=== PATIENT | female | born 1945 | race Caucasian/White ===

== ENCOUNTER 2019-09-27 07:20 | Outpatient (CLI) | payer OTHER, SELFPAY ==
--- NOTE | ~2019-09-27 | CT_ITS ---
EXAMINATION: CT chest w con DATE: 09/27/2019 08:08 INDICATION: VOCAL CORD PARALYSIS,CHRONIC SOB,RECENT DX LUNG INFECTION TECHNIQUE: Computed tomography (CT) of the chest was performed without intravenous contrast. Addition al 3D reconstructions utilizing coronal maximum intensity projection (MIP) were performed. Automated exposure control and iterative reconstruction technique were employed. The dose-length product was 57 1.08 mGy-cm. COMPARISON: 06/21/2018 and 04/09/2017 FINDINGS: 6 mm noncalcified granuloma in the left lower lobe, unchanged since 04/09/2017. Similar pattern of a s mall amount of peripheral reticular opacities in the lower lungs most prominent on the right middle l obe without honeycombing consistent with mild chronic interstitial lung disease. Unchanged mosaic att enuation subtle scattered regions of increased lucency consistent with air trapping in the setting of small airway disease. No pneumonia, pulmonary edema or pleural effusion. Cardiomegaly. Atherosclerot ic coronary artery calcification. No pericardial effusion. Unchanged 2.1 x 1.3 cm right paratracheal lymph node. No pathologically enlarged thoracic lymphadenopathy. Small sliding-type hiatal hernia. A couple small left renal cysts. Right shoulder arthroplasty. Mild thoracic dextrocurvature with severe spondylosis. IMPRESSION: 1. Mild chronic lung disease. No acute cardiopulmonary disease. 2. Unchanged mildly enlarged and likely reactive right paratracheal lymph node. No evident malignancy or metastatic disease. Reviewed, dictated and finalized at location A. [employer]
[2019-09-27 07:55] LABS: Blood Urea Nitrogen 23 mg/dL (8-26); Estimated Glomerular Filt Rate > 60
== END 2019-09-27 07:21 | disposition home or self-care (01) ==
LOC: ANHIMG 07:27
PROVIDERS: PCP Family Medicine; Visit Provider Otolaryngology
DX: J38.01 Paralysis of vocal cords and larynx, unilateral (principal); J98.4 Other disorders of lung; R59.0 Localized enlarged lymph nodes
CPT/HCPCS: 71260; Q9967

== ENCOUNTER 2019-10-21 07:53 | Outpatient (CLI) | payer OTHER, SELFPAY ==
--- NOTE | 2019-10-21 | EST_ITS ---
Patient Info Name: Rhoda Newton Age: 74 years : 1945 Gender: Female Ht: 63 in Wt: 225 lbs BSA: 2.18 m2 Exam Date: 10/21/2019 10:59 AM Exam Location: [facility] Stress Patient Status: Outpatient Admit Date: 10/21/2019 Staff Ordering Physician: Ilsa Garrett MD Attending Provider: Ilsa Garrett MD Exercise Technologist: Le Kulkarni RD Nurse: Thuy Fernandez ANP, ACNP- Exam Type: CA stress ashley w NM Study Info Indications R06.09 - Other forms of dyspnea A regadenoson stress test was performed. Summary 1. Atrial fibrillation. 2. Minor resting ST/T wave changes. 3. Clinically negative Lexiscan stress test for ischemia. 4. Myocardial perfusion imaging exam to be dictated by the Radiology Department. Protocol: Lexiscan Stress ECG Details Stage: REST Duration (min): 2 min : 34 sec HR (bpm): 69 SBP (mmHg): 121 DBP (mmHg): 59 Stage: REST Duration (min): 19 min : 0 sec HR (bpm): 73 SBP (mmHg): 121 DBP (mmHg): 59 Stage: STAGE 1 Duration (min): 1 min : 0 sec HR (bpm): 78 SBP (mmHg): 118 DBP (mmHg): 50 Stage: RECOVERY Duration (min): 1 min : 0 sec HR (bpm): 78 SBP (mmHg): 127 DBP (mmHg): 53 Stage: RECOVERY Duration (min): 2 min : 0 sec HR (bpm): 81 SBP (mmHg): 127 DBP (mmHg): 53 Stage: RECOVERY Duration (min): 3 min : 0 sec HR (bpm): 72 SBP (mmHg): 121 DBP (mmHg): 56 Stage: RECOVERY Duration (min): 3 min : 15 sec HR (bpm): 75 SBP (mmHg): 121 DBP (mmHg): 56 Rest HR: 73 bpm Peak HR: 87 bpm Rest Sys BP: 121 mmHg Peak Sys BP: 127 mmHg Max Pred HR: 145 bpm % Max Pred HR: 60 % Target HR: 123 bpm Max RPP: 11,049 bpm*mmHg BP Response: Normal blood pressure response Termination Reason: Completed protocol Cardiac Symptoms: None Total Time: 1 min : 0 sec Rest Crews BP: 59 mmHg Peak Crews BP: 53 mmHg Total Dose: 0.4 mg Resting ECG Atrial fibrillation. Minor resting ST/T wave changes. Stress ECG No abnormal ST/T wave changes with exercise. Report Signatures
--- NOTE | ~2019-10-21 | NM_ITS ---
EXAMINATION: NM ashley stress w perfusion DATE: 10/21/2019 13:14 INDICATION: Congestive heart failure. TECHNIQUE: Rest images were obtained following intravenous administration of 10 mCi Tc99m tetrofosmin (Myoview). The patient was infused intravenously with Lexiscan (regadenoson). Then, 28.3 mCi Tc99m t etrofosmin (Myoview) was administered intravenously, and stress images were obtained. Data was recons tructed into short axis and horizontal and vertical long axis SPECT images. Gated SPECT images were a lso obtained. COMPARISON: Chest CT 09/27/2019 FINDINGS: There is a moderate-sized, mild, reversible perfusion defect involving mid to basal inferio r wall, apical lateral segment, and mid inferolateral segment of left ventricle, consistent with isch emia. There is no segmental wall motion abnormality. Left ventricular ejection fraction measures >7 0%. IMPRESSION: 1. Moderate-sized area of mild ischemia involving mid to basal inferior wall, apical lateral segment, and mid inferolateral segment of left ventricle. 2. Normal left ventricular ejection fraction measuring >70%. Reviewed, dictated and finalized at location A. IMPRESSION: 1. Moderate-sized area of mild ischemia involving mid to basal inferior wall, a pical lateral segment, and mid inferolateral segment of left ventricle. 2. Normal left ventricular ejection fraction measuring >70%.
--- NOTE | 2019-10-21 19:29 | WPDPFTINT ---
PFT Interpretation PFT Interpretation: DOS: 10/21/2019 REQUESTING: Dr. Garrett REASON FOR TESTING: COPD, cardiopulmonary rehab PULMONARY FUNCTION TESTS Spirometry: FEV1 is 73%, mildly decreased, 1 L. FVC is 70%. The FEV1% is normal. Severe decrease in OOL24-75%. There is no significant response to bronchodilator administration. Lung volumes: Mild decrease in TLC 76% consistent with restrictive process. Increased RV/ TLC ratio, consistent with air trapping. Diffusion: DLCO is 41%, severely reduced. Flow volume loop: Mild scooping of the expiratory limb. IMPRESSION: Mixed obstructive and restrictive processes. Severe obstructive ventilatory defect in the small airways, without significant response to bronchodilator. Restrictive lung volumes with decreased total lung capacity, new compared to 04/10/2018. Similar air trapping. DLCO was 33%, now 41%, similar. The restrictive process is new. Compared to 04/06/2018, TLC was 132, now 76%, much lower. Restriction can mask obstruction due to not being able to take a deep breath. Clinical correlation is recommended. Ilsa Garrett MD
--- NOTE | 2019-10-21 19:39 | WPDSIXMINUTE ---
Six Minute Walk Six Minute Walk: DOS: 10/21/2019 REQUESTING: Dr. Garrett REASON FOR TESTING: Dyspnea on exertion, cardiopulmonary rehab. SIX MINUTE WALK This test was conducted per ATS guidelines. The patient told the respiratory therapist that she uses O2 at 3 L/min as needed at home. The study was started on room air per routine orders. The initial saturation was 96% on room air and pulse was 71. After 2 minutes of walking, her saturation decreased to 91%, and the patient needed to stop and rest due to shortness of breath. She was placed on her usual 3 L/min, and continued to walk for 2 more minutes. Distance walked was 150 feet / 45.7 meters. Saturation at the end of the study was 95%, and pulse was 85. IMPRESSION: This walk study shows a baseline saturation of 96% on room air indicating that the patient does not need supplemental O2 at rest. She has limited exercise capacity and desaturates with exertion, with distance walked 150 feet / 45.7 m, less than expected for her age. She walked for 5 minutes total. Supplemental O2 at 3 L/min is more than sufficient to provide adequate saturation with exertion. She may be able to tolerate lower O2 flow with optimized exercise endurance as she improves through structured cardiopulmonary rehab.
== END 2019-10-21 07:54 | disposition home or self-care (01) ==
PROVIDERS: PCP Family Medicine; Visit Provider Internal Medicine Critical Care Medicine
DX: J44.9 Chronic obstructive pulmonary disease, unspecified (principal); I27.20 Pulmonary hypertension, unspecified; I48.91 Unspecified atrial fibrillation
CPT/HCPCS: 78452; 93017; 94060; 94618; 94726; 94729; A9502; J2785

== ENCOUNTER 2020-01-01 11:42 | Emergency (ER) | payer OTHER, SELFPAY ==
--- NOTE | ~2020-01-01 | XR_ITS ---
XR elbow LT min 3V DATE: 01/01/2020 12:10 INDICATION: Fall. Left elbow pain. TECHNIQUE: 4 views COMPARISON: None FINDINGS: Synovial osteochondromatosis. There is elevation of anterior posterior fat pads consistent with joint effusion. There is prominent spurring of the radial head and neck. No definite fracture or dislocation is evide nt. IMPRESSION: Joint effusion; no definite fracture is identified. Consider CT or MRI evaluation if ther e is concern for possible fracture. Degenerative change Synovial osteochondromatosis Reviewed, dictated and finalized at location A. IMPRESSION: Joint effusion; no definite fracture is identified. Consider CT or MRI evaluation if there is concern for possible fracture. Degenerative change Synovial osteochondromatosis
[2020-01-01 11:55] VITALS: BP 127/53; PULSE 66; RESP 16; TEMP 36.9; O2SAT 94
--- NOTE | 2020-01-01 12:03 | ED.UPPEXIN ---
HPI - Extremity Injury (Upper) General Chief Complaint: Extremity Injury, Lower Stated Complaint: Fell left arm pain Time Seen by Provider: 01/01/20 11:55 Source: patient Mode of arrival: ambulatory Limitations: no limitations History of Present Illness HPI narrative: Rhoda Newton is a 74 yo female with a PMH of HTN, COPD dependent on O2, depression, hypothyroid, came to [facility] care for fall on left arm last evening. Is able to move arm, no loss of strength, states still sore as it was last night, no obvious bruising, rates pain as 3 out of 10 Related Data Home Medications Medication Instructions Recorded Confirmed Eliquis 5 mg PO BID 08/16/19 08/17/19 amlodipine 5 mg PO DAILY 08/16/19 08/17/19 doxazosin 4 mg PO DAILY 08/16/19 08/17/19 furosemide 40 mg PO DAILY 08/16/19 08/17/19 levothyroxine 50 mcg PO DAILY 08/16/19 08/17/19 losartan 100 mg PO DAILY 08/16/19 08/17/19 metoprolol tartrate 50 mg PO BID 08/16/19 08/17/19 sertraline 100 mg PO DAILY 08/16/19 08/17/19 albuterol sulfate [ProAir HFA] 2 puff INHALATION QID PRN 08/17/19 08/17/19 Allergies Allergy/AdvReac Type Severity Reaction Status Date / Time No Known Allergies Allergy Unverified 02/26/19 12:56 Review of Systems Review of Systems: Narrative: CONSTITUTIONAL: Denies fever, chills, sweats. EYES: Denies visual changes, redness, discharge. ENT: Denies rhinorrhea, congestion, sore throat, otalgia. CARDIOVASCULAR: Denies chest pain, palpitations, edema. RESPIRATORY: Denies dyspnea, wheezing, cough GASTROINTESTINAL: Denies abdominal pain, nausea, vomiting, diarrhea. GENITOURINARY: Denies dysuria, hematuria, abnormal discharge SKIN: Denies rash or itching. NEUROLOGIC: Denies numbness, or focal weakness. PSYCHIATRIC: Denies anxiety or depression. Left arm pain after fall PMFSH Past Medical History Medical History A-fib Chronic hypoxemic respiratory failure COPD (chronic obstructive pulmonary disease) History of lymphoma Hypertension Hypothyroidism Family History Family History Sibling Family history of cardiovascular disease Mother Family history of primary malignant neoplasm of liver, Onset Age: 83 Social History Social History Smoking status: Never smoker Second hand tobacco smoke exposure: Yes Alcohol intake: never Substance use: never Gender identity (if verbalized by the patient): Female Spiritual care concerns: No Agree to blood products: Yes Comments At time of signature, I agree with nursing past medical, surgical, social and family history. There is no relevant family history pertinent to the presenting complaint. Exam Narrative: Exam Narrative: GENERAL: This is a well-nourished, well-developed patient, in mild distress. HEAD: normocephalic, did not hit head EYES: Sclera clear/white. Vision is grossly intact. EARS: External ears normal, auditory canals clear and without drainage, TMs normal without perforation. Hearing grossly intact. NOSE: External nose normal without nasal discharge, nares without redness, no rhinorrhea. THROAT: Mucous membranes moist, NECK: Neck supple, non-tender CARDIOVASCULAR: Regular rate and rhythm without murmurs, gallops, or rubs. RESPIRATORY: Clear to auscultation. Breath sounds equal bilaterally. No wheezes, rales, or rhonchi. GASTROINTESTINAL: Abdomen soft, SKIN: warm, intact with no suspicious lesions or rash, good texture and turgor. NEURO: awake, alert, and oriented to person, place and time. There were no obvious focal neurologic abnormalities. Steady gait EXTREMITIES: Can raise arm overhead with some pain, no ecchymosis on arm or upper arm, states his soreness on palmar side of upper arm and elbow, mildly flexed from childhood injury, good finger strength BACK: Nontender without deformity Course Course Emerg
== END 2020-01-01 12:48 | disposition home or self-care (01) ==
PROVIDERS: Emergency Provider Nurse Practitioner; PCP Family Medicine
DX: M25.522 Pain in left elbow (principal); I10 Essential (primary) hypertension; J44.9 Chronic obstructive pulmonary disease, unspecified; Z99.81 Dependence on supplemental oxygen; W19.XXXA Unspecified fall, initial encounter; E03.9 Hypothyroidism, unspecified
CPT/HCPCS: 73080; 99213; G0463

== ENCOUNTER → 2021-04-21 07:32 | Outpatient (CLI) | payer OTHER, SELFPAY ==
--- NOTE | 2021-05-07 10:38 | WPDSLEEPSTUD ---
Sleep Study Date of Study: 04/21/21 Ordering Provider: Kenn Jarrell APRN Interpreting Physician: Ilsa Garrett MD Sleep Study Type: CPAP Titration Height: 1.6 m Weight: 97.522 kg Body Mass Index: 38.0 Neck Circumference (inches): 15 [place]: 11 Reason for Sleep Study Obstructive sleep apnea on APAP, increased symptoms and increased AHI, presents for a titration * 03/14/2018, CPAP titration with a final pressure of 8 cm, poor sleep efficiency * 06/15/2017 - basic sleep study, moderate obstructive sleep apnea with an AHI of 26.3, moderate to loud snoring Sleep History Rhoda Newton is a 75 year old female with obstructive sleep apnea who has been on APAP at home with good compliance. However she does not have a good mask seal, and wakes up at night with mask leaking. She rarely awakens from sleep feeling short of breath. She does not awaken at night with heartburn, belching or coughing. Without CPAP she snores frequently. Using CPAP she does not snore loudly at all. She frequently has trouble sleeping with a cold. She does not wake up gasping for breath at night. She does not have breathing problems at night while using the CPAP. She does not sweat excessively at night. She does not notice her heart pounding or beating irregularly at night. She frequently falls asleep during the day, never in involuntarily and never while driving. She does not have loss of muscle tone with strong emotion. She does not have daytime difficulties due to excessive sleepiness. She does not feel paralyzed on waking or falling asleep. She occasionally has vivid dreamlike scenes upon awakening or falling asleep. She does not feel afraid to go to sleep. She rarely has nightmares. She frequently remembers her dreams. She rarely feels sad or depressed. She occasionally has anxiety. She occasionally has muscular tension. She does not notice parts of her body jerking. She does not kick at night. She denies having crawling and aching feelings in her legs. She does not have any kind of leg pain at night and does not have morning jaw pain. She frequently grinds her teeth during sleep. She occasionally is bothered by pain during the day. She rarely is awakened by pain at night. She constantly wakes up feeling stiff in the morning with sore achy muscles and pain in the neck and spine. She still has fatigue and feels tired throughout the day. Normal bedtime is around midnight, taking 20 minutes or longer to fall asleep. She typically wakes 2-3 times during the night to get a drink of water, sometimes uses the bathroom, changes positions and returns to sleep within 10 minutes. She wakes the morning between 9 and 10:00 a.m.. Her weekend schedule is the same. She estimates getting between 7 and 9 hours of sleep at night. She sometimes takes naps in the afternoon or evening. A short nap is not refreshing. She is usually drowsy in the morning for an hour. She feels better in the afternoon compared to other times of day. Habits: never smoked tobacco. Caffeine 2 cups in the morning. No alcohol or recreational drugs. [facility] Past Medical History Medical History (Updated 05/12/21 @ 14:29 by Ilsa Garrett MD) A-fib Chronic hypoxemic respiratory failure COPD (chronic obstructive pulmonary disease) History of lymphoma Hypertension Hypothyroidism Lymphoma ROQUE (obstructive sleep apnea) Family History Family History Sibling Family history of cardiovascular disease Mother Family history of primary malignant neoplasm of liver, Onset Age: 83 Social History Social History Smoking status: Never smoker Second hand tobacco smoke exposure: Yes Alcohol intake: never Substance use: never Gender identity (if verbalized by the patient): Female Spiritual care concerns: No Agree to blood products: Yes Medications Les
[2021-05-12 15:07] VITALS: BMI 38.0
== END ==
PROVIDERS: PCP Internal Medicine; Visit Provider Nurse Practitioner Family
DX: G47.33 Obstructive sleep apnea (adult) (pediatric) (principal); J44.9 Chronic obstructive pulmonary disease, unspecified
CPT/HCPCS: 95811

== ENCOUNTER 2021-07-19 08:09 | Outpatient (CLI) | payer OTHER, SELFPAY ==
--- NOTE | ~2021-07-19 | MM_ITS ---
EXAMINATION: MM screening grant BI w fabrizio HISTORY: Screening TECHNIQUE: Craniocaudal and mediolateral oblique 3-D tomosynthesis images were obtained and synthetic 2-D images were generated. CAD analysis was submitted and interpreted. COMPARISON: Comparison to multiple prior studies sequentially, with oldest reviewed study dated 10/2011. BREAST PARENCHYMAL COMPOSITION: There are scattered areas of fibroglandular density. FINDINGS: There is no evidence of suspicious mass, calcification, or architectural distortion to sugg est malignancy in either breast. There has been no suspicious interval change. IMPRESSION: 1. No mammographic evidence of malignancy. 2. Recommend routine screening mammography in one year. BI-RADS Category 1: Negative Reviewed, dictated and finalized at location A. MACEUTICAL WORKER
== END 2021-07-19 08:10 | disposition home or self-care (01) ==
LOC: ANHIMG 08:10
PROVIDERS: PCP Internal Medicine; Visit Provider Nurse Practitioner
DX: Z12.31 Encounter for screening mammogram for malignant neoplasm of breast (principal)
CPT/HCPCS: 77063; 77067

== ENCOUNTER 2021-10-06 12:26 | Outpatient (CLI) | payer OTHER, SELFPAY ==
--- NOTE | ~2021-10-06 | CT_ITS ---
EXAMINATION: CT diagnostic chest wo con EXAM DATE: 10/06/2021 14:21 INDICATION: J84.9 - Interstitial pulmonary disease, unspecified. TECHNIQUE: Spiral CT of the chest without contrast. HRCT. Axial, coronal and sagittal images of the chest were reviewed. Coronal maximum intensity pixel images of chest reviewed. The dose-length prod uct (DLP) for this examination was 801.09 mGy-cm. The exposure was tailored according to patient siz e (auto mA exposure control), and iterative reconstruction (ASIR) was used as additional dose reducti on technique. Comparison is made to prior examination from 09/27/2019. FINDINGS: Mild intralobular septal thickening and interspersed groundglass opacities, could be mild chronic NSIP pattern interstitial lung disease. 6 mm left lower lobe nodule without spiculations unch anged, consistent with noncalcified granuloma. There are no pleural or pericardial effusions. Trach eobronchial tree is patent. Mildly enlarged precarinal lymph node at 1.6 x 1.1 cm, unchanged. This can be a feature of interstitial lung disease. There is no pneumothorax. Mild cardiomegaly. There is moderate to severe coronary arterial calcification, arterial sclerosis. Consider cardiology consu lt if not previously evaluated. There is right nephrolithiasis. There is thoracic spondylosis witho ut osteoblastic or osteolytic lesions identified. IMPRESSION: 1. 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 2. Moderate to severe coronary artery calcifications. Consider cardiology consult previously evaluat ed. 3. Mild precarinal lymphadenopathy probably reactive. 4. Left basilar granuloma. Reviewed, dictated and finalized at location G. DRY SUPERINTENDENT IMPRESSION: 1. Findings consistent with mild chronic NSIP pattern interstitial lung diseas e. 2. Moderate to severe coronary artery calcifications. Consider cardiology cons ult previously evaluated. 3. Mild precarinal lymphadenopathy probably reactive. 4. Left basilar granuloma.
[2021-10-06 13:19] VITALS: PULSE 72; O2SAT 92
[2021-10-06 13:20] VITALS: PULSE 72; O2SAT 89
[2021-10-06 13:22] VITALS: PULSE 74; O2SAT 86
[2021-10-06 14:01] VITALS: PULSE 78; O2SAT 88
[2021-10-06 14:02] VITALS: PULSE 75; O2SAT 90
--- NOTE | 2021-10-06 14:02 | HOMEO2EVAL ---
Evaluation was performed at [facility] Home Oxygen Evaluation RC: Home Oxygen (O2) Evaluation Start: 10/06/21 14:00 Freq: Status: Active Protocol: RPE Activity Type Activity Date Activity User E-Sign Co-Sign Detail Recorded Client Recorded Date Recorded By Document 10/06/21 13:19 KRM [email or web address] 10/06/21 14:02 KRM Document 10/06/21 13:20 KRM [email or web address] 10/06/21 14:02 KRM Document 10/06/21 13:22 KRM [email or web address] 10/06/21 14:02 KRM Document 10/06/21 14:01 KRM [email or web address] 10/06/21 14:02 KRM Document 10/06/21 14:02 KRM [email or web address] 10/06/21 14:02 KRM 10/06/21 10/06/21 10/06/21 13:19 13:20 13:22 Home O2 Evaluation Test Phase Resting Exercise Exercise Oxygen Delivery Room Air Room Air Room Air Oxygen Flow Rate (L/min) Pulse Oximetry (90-100 %) 92 89 L 86 L Pulse Rate (60-100 beats/min) 72 72 74 Activity Tolerance Fair Fair Ambulation Distance (feet) Ambulation Distance (meters) Treatment Charges 10/06/21 10/06/21 14:01 14:02 Home O2 Evaluation Test Phase Exercise Exercise Oxygen Delivery Nasal Cannula Nasal Cannula Oxygen Flow Rate (L/min) 1 2 Pulse Oximetry (90-100 %) 88 L 90 Pulse Rate (60-100 beats/min) 78 75 Activity Tolerance Fair Fair Ambulation Distance (feet) 200 Ambulation Distance (meters) 60.95 Treatment Charges O2 Evaluation - Outpatient
--- NOTE | 2021-10-07 15:37 | WPDPFTINT ---
PFT Procedure Performed PFT Procedure Performed Spirometry with Pre/Post Bronchodilator Plethysmography (Lung Vol) Diffusing Cap (DLCO) Flow Vol Loop PFT Interpretation Lung volumes were measured with the body plethysmography method. The diminished total lung capacity and vital capacity are indicative of mild restrictive respiratory disease. Spirometry showed diminished expiratory flow rates and a borderline normal FEV1 to FVC ratio of 68%. Following administration of a bronchodilator there was no significant increase in expiratory flow rates. Lung diffusion capacity is severely reduced at 43% predicted. in comparison to previous study in October of 2019, forced vital capacity, FEV1, total lung capacity, and lung diffusion capacity are essentially unchanged. Impression: Mild restrictive respiratory disease. Severely reduced lung diffusion capacity. Unchanged since 10/2019.
== END 2021-10-06 12:27 | disposition home or self-care (01) ==
LOC: ANHPFT 12:27
PROVIDERS: PCP Internal Medicine; Visit Provider Nurse Practitioner Family
DX: J84.9 Interstitial pulmonary disease, unspecified (principal); J96.11 Chronic respiratory failure with hypoxia; J44.9 Chronic obstructive pulmonary disease, unspecified; Z99.81 Dependence on supplemental oxygen; R94.2 Abnormal results of pulmonary function studies; I25.10 Atherosclerotic heart disease of native coronary artery without angina pectoris
CPT/HCPCS: 71250; 94060; 94618; 94726; 94729

== ENCOUNTER 2022-04-06 13:09 | Inpatient (IN) | payer OTHER, SELFPAY ==
[2022-04-06] VITALS (17 sets, daily range): BP systolic 133–180; BP diastolic 44–89; PULSE 62–86; RESP 15–29; TEMP 36.4–36.9; O2SAT 96–100; BMI 38.6
--- NOTE | ~2022-04-06 | XR_ITS ---
EXAMINATION: XR chest 2V DATE: 04/06/2022 14:01 INDICATION: Shortness of breath. TECHNIQUE: Frontal and lateral views of the chest were obtained. COMPARISON: Chest single view 08/17/2019, chest CT 10/06/2021, 09/27/2019 FINDINGS: The lung volumes are normal. There is a diffuse interstitial pattern in the lungs. No pleur al effusion or pneumothorax. Cardiomegaly is noted. There are surgical clips in right axilla. There i s a right shoulder arthroplasty. IMPRESSION: 1. Chronic diffuse interstitial pattern in the lungs, consistent with mild chronic interstitial lung disease without or with superimposed mild pulmonary edema. 2. Cardiomegaly. Reviewed, dictated and finalized at location A. IMPRESSION: 1. Chronic diffuse interstitial pattern in the lungs, consistent with mild warehouse associate driver yuki interstitial lung disease without or with superimposed mild pulmonary edema . 2. Cardiomegaly.
--- NOTE | 2022-04-06 13:24 | ECG_ITS ---
Measurements Intervals [place] Rate: 54 P: ND: 0 QRS: 27 QRSD: 84 T: 38 QT: 422 QTc: 401 Interpretive Statements ATRIAL FIBRILLATION WITH SLOW VENTRICULAR RESPONSE LOW QRS VOLTAGE IN PRECORDIAL LEADS POSSIBLE RIGHT VENTRICULAR CONDUCTION DELAY NONSPECIFIC ST ABNORMALITY ABNORMAL ECG COMPARED TO ECG 08/17/2019 10:47:50 NO SIGNIFICANT CHANGES Electronically Signed On 04-06-2022 16:14:37 CDT by Mark Salmon M.D.
--- NOTE | 2022-04-06 15:42 | ED.SOB ---
HPI - SOB/Dyspnea General Chief Complaint: Shortness of Breath/Dyspnea Stated Complaint: covid+/ dyspnea Time Seen by Provider: 04/06/22 15:20 History of Present Illness HPI Narrative: This is a 76-year-old female with past medical history of A. fib and COPD on 2 L OF oxygen with exertion at baseline, presenting the emergency department with worsening shortness of breath for the past several days. Patient states she was exposed to another person with COVID-19 3 days ago, with development of symptoms 2 days ago and had a positive home test today. She states she has needed to use her oxygen at rest as well as with exertion. She denies associated chest pain, palpitations or loss of consciousness. She denies abdominal pain or vomiting. Related Data Home Medications Medication Instructions Recorded Confirmed albuterol sulfate 90 mcg/actuation 2 puff inhalation QID PRN 08/17/19 12/14/21 aerosol inhaler (ProAir HFA) Shortness Of Breath atorvastatin 40 mg tablet 40 mg PO DAILY 02/03/20 12/14/21 metoprolol tartrate 50 mg tablet 25 mg PO BID 02/03/20 12/14/21 apixaban 5 mg tablet (Eliquis) 5 mg PO BID 07/28/20 12/14/21 multivitamin (Daily Multi-Vitamin 1 tablet PO DAILY 12/04/20 12/14/21 tablet) furosemide 40 mg tablet 40 mg PO DAILY 12/14/21 12/14/21 Allergies Allergy/AdvReac Type Severity Reaction Status Date / Time No Known Allergies Allergy Verified 04/06/22 16:08 Review of Systems Review of Systems: CONSTITUTIONAL: Denies fever, chills, or sweats. EYES: Denies visual changes, redness, or discharge. ENT: Denies rhinorrhea, congestion, sore throat, or otalgia. CARDIOVASCULAR: Denies chest pain, palpitations, or edema. RESPIRATORY: Nonbloody cough and dyspnea at rest. GASTROINTESTINAL: Denies abdominal pain, nausea, vomiting, or diarrhea. GENITOURINARY: Denies dysuria or hematuria. SKIN: Denies rash or itching. MUSCULOSKELETAL: Denies back pain, joint pain, or myalgia. NEUROLOGIC: Denies headache, numbness, dizziness, or weakness. PSYCHIATRIC: Denies anxiety or depression. [facility] Past Medical History Medical History A-fib Chronic hypoxemic respiratory failure COPD (chronic obstructive pulmonary disease) History of lymphoma Hypertension Hypothyroidism Lymphoma ROQUE (obstructive sleep apnea) Family History Family History Sibling Family history of cardiovascular disease Mother Family history of primary malignant neoplasm of liver, Onset Age: 83 Social History Social History Second hand tobacco smoke exposure: Yes Alcohol intake: never Substance use: never Substance use type: does not use Gender identity (if verbalized by the patient): Female Spiritual care concerns: No Agree to blood products: Yes Exam Narrative: GENERAL: Well-developed, well-nourished, and in no acute distress. HEAD: Normocephalic, atraumatic. EYES: PERRLA and EOMI. ENT: Nares clear, no rhinorrhea or epistaxis. Mucous membranes moist. Oropharynx without tonsillar hypertrophy exudate or other lesions. NECK: Supple. No adenopathy or masses. No carotid bruits or JVD CHEST: Tachypneic, faint bilateral lower lung field rales. No respiratory distress. No wheezes or rhonchi HEART: Irregularly irregular. No murmur heard. Normal peripheral pulses. ABDOMEN: Soft, nontender, nondistended, normal active bowel sounds. EXTREMITIES: Normal range of motion. No edema. SKIN: Warm, dry, no rash. NEURO: No focal deficits. Alert and oriented x3. PSYCH: Normal mood and affect. Course Course Emergency Course: 16:15 - Patient desatted with ambulation to 83% with significant work of breathing, though she was off oxygen at the time. Discussed patient with hospitalist, DARIN Posey who accepts admission. Vital Signs Vital signs: Vital Signs Temperature 98.4 F 04/06
[2022-04-06 16:17] LABS: Basophils Percent Auto 0.4 % (0.2-1.2); Eosinophils Percent Auto 0.4 % (0-4.4); Hematocrit 37.9 % (37.0-47.0); Hemoglobin 12.5 g/dL (12.0-15.0); Immature Granulocyte Absolute 0.02 K/mm3 (0.00-0.031); Immature Granulocyte Percent A 0.3 % (0-0.5); Lymphocytes Absolute Auto 2.29 K/mm3 (0.9-3.2); Lymphocytes Percent Auto 28.7 % (18.3-44.2); Mean Corpuscular Hemoglobin 32.6 pg (26-34); Mean Corpuscular Volume 98.7 fl (80-100); Mean Platelet Volume 10.4 fl (7.4-10.4); Monocytes Absolute Auto 0.9 K/mm3 (0.1-0.6); Monocytes Percent Auto 11.2 % (2.6-8.5); Neutrophils Absolute Auto 4.7 K/mm3 (1.3-6.7); Platelet Count Result 168 k/mm3 (150-375); Red Blood Count 3.84 M/mm3 (4.2-5.4); Red Cell Distribution Width 13.7 % (11.5-14.5)
[2022-04-06] MEDS: DEXAMETHASONE 2 MG TABLET 10 MG PO (16:33)
--- NOTE | 2022-04-06 18:10 | PM.IMHP ---
H&P: HPI History of Present Illness Date/Time: 04/06/22 18:10 Chief Complaint: Shortness of breath. Narrative: This is a pleasant 76-year-old female with chronic obstructive pulmonary disease on p.r.n. oxygen sleep apnea, atrial fibrillation on chronic anticoagulation, hypertension, hypothyroidism, and history of lymphoma who presented to the emergency department from home for evaluation of shortness of breath. Monday evening she started to feel a bit under the weather and by Monday she had developed a sore throat, sinus congestion, and cough which has been productive of yellowish green phlegm. Over last 24 hours she has felt increasingly short of breath from baseline and she has been wearing her oxygen continuously. She has also noticed some mild tightness in her chest which she believes is due to the shortness of breath. Today she took and at home COVID test and that came back positive and she decided to come in for evaluation. Vital signs have been stable since arrival to the emergency department. Pertinent labs include a normal white blood cell count, sodium 133, and a BUN of 18. Chest x-ray showed cardiomegaly with findings of chronic lung disease. Due to her comorbidities and increasing oxygen requirement, I was asked to admit the patient for close monitoring overnight. At the time my evaluation she is resting comfortably and in fact she is hungry and asking for food. She reports a subjective fever but has not had a documented temperature. She has had some sweats as well. She is not currently having any chest pain and she denies pleuritic pain, palpitations, and sensation of racing heart. Appetite has been okay without change in smell and taste. She has not had nausea, vomiting, or diarrhea. She did receive the COVID vaccination series and 1 booster though she was exposed to COVID sometime late last week. Review of Systems Review of Systems: Twelve systems were reviewed and are negative except for as per HPI. [facility] Past Medical History Medical History (Updated 04/06/22 @ 22:43 by Smiley Posey PA-C) Atrial fibrillation Chronic obstructive pulmonary disease Chronic respiratory failure with hypoxia, on home oxygen therapy Depression with anxiety Follicular lymphoma Hypertension Hypothyroidism Interstitial lung disease Obstructive sleep apnea on CPAP Surgical History Surgical History (Updated 04/06/22 @ 22:39 by Smiley Posey PA-C) History of arthroscopy of right shoulder History of bilateral cataract extraction Family History Family History Sibling Family history of cardiovascular disease Mother Family history of primary malignant neoplasm of liver, Onset Age: 83 Social History Social History (Updated 04/06/22 @ 22:40 by Smiley Posey PA-C) Social History: Surrogate medical decision maker: Tyrone Newton, spouse. Code status: Full code. Smoking status: Never smoker Second hand tobacco smoke exposure: Yes (As a child and young adult) Alcohol intake: never Substance use: never Substance use type: does not use Living arrangements: with family Occupation/Education: retired Spiritual care concerns: No Agree to blood products: Yes Meds Home Medications and Allergies Home Medications Medication Instructions Recorded Confirmed Type albuterol sulfate 90 mcg/actuation 2 puff inhalation QID PRN 08/17/19 12/14/21 History aerosol inhaler (ProAir HFA) Shortness Of Breath atorvastatin 40 mg tablet 40 mg PO DAILY 02/03/20 12/14/21 History metoprolol tartrate 50 mg tablet 25 mg PO BID 02/03/20 12/14/21 History apixaban 5 mg tablet (Eliquis) 5 mg PO BID 07/28/20 12/14/21 History multivitamin (Daily Multi-Vitamin 1 tablet PO DAILY 12/04/20 12/14/21 History tablet) furosemide 40 mg tablet 40 mg PO DAILY 12/14/21 12/14/21 History cholecalciferol (vitamin D3) 50 50 mcg PO DAILY #90 tabs 12/23/21 Rx mcg (2,000
[2022-04-06 21:07] LABS: Alanine Aminotransferase 20 U/L (6-35); Albumin Level 4.1 g/dL (3.5-5.1); Alkaline Phosphatase 59 U/L (38-126); Anion Gap 7 mmol/L (8-16); Aspartate Amino Transferase 32 U/L (14-36); Bilirubin,Total 0.6 mg/dL (0.2-1.3); Blood Urea Nitrogen 18 mg/dL (7-17); Calcium 8.8 mg/dL (8.4-10.2); Carbon Dioxide 29 mmol/L (22-30); Chloride 97 mmol/L (98-107); Estimated Glomerular Filt Rate > 60; Glucose 255 mg/dL (65-110); Potassium 3.8 mmol/L (3.4-5.0); Sodium 133 mmol/L (137-145)
--- NOTE | 2022-04-06 21:37 | ADMGEN ---
This patient, Rhoda Newton, was admitted to [facility] Surg Room 311-01. Patient/family oriented to hospital policies and general routines including ID bracelet, bed and alarms, visiting hours, pain management, procedures, bathroom and other care routines, personal items, smoking policy, room service/diet, and visiting hours. Information on how to activate the Rapid Response Team has been discussed. Patient/Family are encouraged to report perceived risks to care and to ask questions if they do not understand what they are told or what they should do.
[2022-04-06] MEDS: REMDESIVIR 200 MG/NS 250 ML 200 MG/250 ML BAG 250 MG IVPB (23:51)
[2022-04-07] VITALS (13 sets, daily range): BP systolic 93–150; BP diastolic 64–99; PULSE 46–87; RESP 16–18; TEMP 36.1–37; O2SAT 93–100
--- NOTE | 2022-04-07 06:00 | ECG_ITS ---
Measurements Intervals [place] Rate: 64 P: MO: 0 QRS: 34 QRSD: 91 T: 14 QT: 435 QTc: 449 Interpretive Statements ATRIAL FIBRILLATION NONSPECIFIC ST ABNORMALITY ABNORMAL ECG COMPARED TO ECG 04/06/2022 13:29:49 NO SIGNIFICANT CHANGES Electronically Signed On 04-07-2022 15:11:25 CDT by Mark Salmon M.D.
[2022-04-07 06:46] LABS: Hemoglobin 12.1 g/dL (12.0-15.0); Mean Corpuscular HGB Conc 32.7 g/dl (32-36); Mean Corpuscular Volume 97.9 fl (80-100); Mean Platelet Volume 9.7 fl (7.4-10.4); Platelet Count Result 142 k/mm3 (150-375); Red Blood Count 3.78 M/mm3 (4.2-5.4); Red Cell Distribution Width 13.2 % (11.5-14.5)
[2022-04-07 07:01] LABS: INR 1.4; Prothrombin Time 16.2 Seconds (11.1-14.7)
[2022-04-07 07:08] LABS: Hemoglobin A1C 5.6 % (<5.7)
[2022-04-07 07:14] LABS: Anion Gap 9 mmol/L (8-16); Blood Urea Nitrogen 16 mg/dL (7-17); CRP 1.8 mg/dL (<1.0); Carbon Dioxide 28 mmol/L (22-30); Chloride 99 mmol/L (98-107); Estimated CRCL calculation 65 ml/min; Estimated Glomerular Filt Rate > 60; Glucose 144 mg/dL (65-110); Lactate Dehydrogenase 183 U/L (120-246); Magnesium 2.3 mg/dL (1.6-2.3); Sodium 136 mmol/L (137-145)
[2022-04-07 08:58] LABS: Glucose Point of Care 138 mg/dl (65-105)
[2022-04-07] MEDS: LEVOTHYROXINE SODIUM 50 MCG TABLET BY MOUTH (09:42)
[2022-04-07] MEDS: DEXAMETHASONE 2 MG TABLET 6 MG PO (09:43)
[2022-04-07] MEDS: ATORVASTATIN 40 MG TABLET PO (09:44)
[2022-04-07] MEDS: DOXAZOSIN MESYLATE 4 MG TABLET BY MOUTH (09:44)
[2022-04-07] MEDS: FUROSEMIDE 40 MG TABLET PO (09:44)
[2022-04-07] MEDS: APIXABAN 5 MG TABLET PO ×2 (09:44→21:03)
[2022-04-07] MEDS: METOPROLOL TARTRATE 25 MG TABLET PO ×2 (09:44→21:03)
[2022-04-07] MEDS: LOSARTAN POTASSIUM 100 MG TABLET BY MOUTH (09:44)
[2022-04-07] MEDS: MULTIVITAMINS THERAPEUTIC TAB (*BKC) 1 TABLET PO (09:44)
[2022-04-07] MEDS: guaiFENesin 12 HR 600 MG TABCR PO ×2 (09:44→21:03)
[2022-04-07] MEDS: amLODIPine BESYLATE 5 MG TABLET BY MOUTH (09:44)
[2022-04-07] MEDS: SERTRALINE HCL 50 MG TABLET 100 MG BY MOUTH (09:44)
[2022-04-07 10:42] LABS: SARS-CoV-2 RNA PCR Positive
[2022-04-07 10:54] LABS: Thyroid Stimulating Hormone Reflex 0.407 uIU/mL (0.465-4.68)
[2022-04-07 11:38] LABS: Free T4 Free Thyroxine Reflex 1.23 ng/dL (0.78-2.19)
--- NOTE | 2022-04-07 12:01 | PM.IMPN ---
Progress Note: A&P Assessment and Plan (1) COVID-19: Code(s): U07.1 - COVID-19 Status: Acute Assessment and Plan: She is vaccinated and has received 1 booster. Chest x-ray today does not show any acute infiltrates to suggest COVID pneumonia. As she is now requiring continuous oxygen, will continue with dexamethasone and remdesivir while hospitalized. (2) Chronic respiratory failure with hypoxia, on home oxygen therapy: Code(s): J96.11 - Chronic respiratory failure with hypoxia; Z99.81 - Dependence on supplemental oxygen Status: Acute Assessment and Plan: Typically on 2 L p.r.n. though she is now requiring 3 to 4 L. wean as tolerated. (3) Hyperglycemia: Code(s): R73.9 - Hyperglycemia, unspecified Status: Acute Assessment and Plan: Check fasting glucose and hemoglobin A1c. Initiate sliding scale insulin and Accu-Cheks while receiving steroids. (4) Atrial fibrillation: Code(s): I48.91 - Unspecified atrial fibrillation Status: Acute Assessment and Plan: Rate controlled on metoprolol. Continue apixaban for stroke prophylaxis. (5) Hypertension: Qualifiers: Hypertension type: essential hypertension Qualified Code(s): I10 - Essential (primary) hypertension Code(s): I10 - Essential (primary) hypertension Status: Acute Assessment and Plan: Blood pressures were reviewed and they have been running a bit high. Continue antihypertensives and monitor. (6) Obstructive sleep apnea on CPAP: Code(s): G47.33 - Obstructive sleep apnea (adult) (pediatric); Z99.89 - Dependence on other enabling machines and devices Status: Acute Assessment and Plan: CPAP will be provided for the patient to use while hospitalized. (7) Chronic obstructive pulmonary disease: Code(s): J44.9 - Chronic obstructive pulmonary disease, unspecified Status: Acute Assessment and Plan: No evidence of exacerbation. Continue home inhalers. Subjective Date/time seen: 04/07/22 12:01 Doing well. On 3L. Exam Narrative: General: Well-developed female sitting up in bed in no acute distress. She is nontoxic in appearance. Weight: 90.9 kg. BMI: 30.6. HEENT: PERRL, EOMI. Conjunctivae anicteric. Tacky mucous membranes. Neck: Supple. No JVD or lymphadenopathy. Respiratory: Respirations are nonlabored. SpO2 is 100% on 4 L nasal cannula. Occasional coarse crackles at the bases. No wheezing. Cardiovascular: Irregularly irregular rate and rhythm. Gastrointestinal: Abdomen is soft, nontender, and nondistended with positive bowel sounds. Skin: Warm and dry. No rash or lesions on limited exam. Extremities: No cyanosis, clubbing, or edema. Radial and pedal pulses intact. Negative Ally sign bilaterally. Neurological: Alert. Cranial nerves 2-12 are grossly intact. No gross focal deficits to casual conversation. Psychiatric: Pleasant and cooperative with normal mood and affect. Judgment and insight intact. Objective Data Vital Signs Vital Signs: Vital Signs - 24 hr 04/06/22 13:21 04/06/22 16:06 04/06/22 16:06 Temperature 98.4 F 98.3 F Pulse Rate 64 66 Respiratory Rate 20 18 Blood Pressure 146/50 H 162/89 H Pulse Oximetry 97 100 97 Oxygen Delivery Room Air Nasal Cannula Room Air Oxygen Flow Rate 4 04/06/22 16:34 04/06/22 15:17 04/06/22 15:18 Temperature Pulse Rate 82 83 62 Respiratory Rate 19 28 H 22 H Blood Pressure 162/89 H Pulse Oximetry 100 100 99 Oxygen Delivery Oxygen Flow Rate 04/06/22 15:44 04/06/22 15:45 04/06/22 15:47 Temperature Pulse Rate 72 75 Respiratory Rate 20 20 Blood Pressure 180/82 H Pulse Oximetry 100 100 Oxygen Delivery Oxygen Flow Rate 04/06/22 16:16 04/06/22 17:29 04/06/22 18:41 Temperature Pulse Rate 64 75 Respiratory Rate 29 H 20 15 Blood Pressure 133/61 Pulse Oximetry 100 100 100 Oxygen Delivery Oxygen Flow Ra
[2022-04-07 12:15] LABS: Glucose Point of Care 132 mg/dl (65-105)
[2022-04-07 16:57] LABS: Glucose Point of Care 193 mg/dl (65-105)
[2022-04-07] MEDS: FUROSEMIDE 20 MG TABLET PO (17:31)
[2022-04-07 18:27] LABS: Total Triiodothyronine (T3) 0.73 NG/ML (0.97-1.69)
[2022-04-07] MEDS: REMDESIVIR 100 MG/NS 250 ML 100 MG/250 ML BAG 250 MG IVPB (21:05)
[2022-04-07 21:21] LABS: Glucose Point of Care 224 mg/dl (65-105)
[2022-04-08] VITALS (10 sets, daily range): BP systolic 125–177; BP diastolic 60–87; PULSE 44–74; RESP 16–18; TEMP 35.7–36.7; O2SAT 93–97
--- NOTE | 2022-04-08 02:46 | PC.NURSE ---
Pt's IV started leaking and infiltrated 04/07 @2300. Pt requested to not have a new IV inserted until the morning. Dr. Hagen was notified. Patient does not have any IV medication due until 04/08 @2200. Will try to insert IV this AM of 04/08
[2022-04-08 05:33] LABS: INR 1.4; Prothrombin Time 16.8 Seconds (11.1-14.7)
[2022-04-08 05:38] LABS: Alanine Aminotransferase 18 U/L (6-35); Estimated CRCL calculation 57 ml/min; Estimated Glomerular Filt Rate > 60
[2022-04-08] MEDS: LEVOTHYROXINE SODIUM 50 MCG TABLET BY MOUTH (06:55)
[2022-04-08 08:17] LABS: Glucose Point of Care 117 mg/dl (65-105)
[2022-04-08] MEDS: SERTRALINE HCL 50 MG TABLET 100 MG BY MOUTH (08:49)
[2022-04-08] MEDS: ATORVASTATIN 40 MG TABLET PO (08:49)
[2022-04-08] MEDS: amLODIPine BESYLATE 5 MG TABLET BY MOUTH (08:49)
[2022-04-08] MEDS: DOXAZOSIN MESYLATE 4 MG TABLET BY MOUTH (08:49)
[2022-04-08] MEDS: guaiFENesin 12 HR 600 MG TABCR PO ×2 (08:49→21:19)
[2022-04-08] MEDS: FUROSEMIDE 40 MG TABLET PO (08:49)
[2022-04-08] MEDS: MULTIVITAMINS THERAPEUTIC TAB (*BKC) 1 TABLET PO (08:49)
[2022-04-08] MEDS: APIXABAN 5 MG TABLET PO ×2 (08:49→21:20)
[2022-04-08] MEDS: DEXAMETHASONE 2 MG TABLET 6 MG PO (08:49)
[2022-04-08] MEDS: LOSARTAN POTASSIUM 100 MG TABLET BY MOUTH (08:49)
[2022-04-08] MEDS: METOPROLOL TARTRATE 25 MG TABLET PO ×2 (08:50→21:20)
--- NOTE | 2022-04-08 10:22 | PM.IMPN ---
Progress Note: A&P Assessment and Plan (1) COVID-19: Code(s): U07.1 - COVID-19 Status: Acute Assessment and Plan: She is vaccinated and has received 1 booster. Chest x-ray today does not show any acute infiltrates to suggest COVID pneumonia. As she is now requiring continuous oxygen, will continue with dexamethasone and remdesivir while hospitalized. (2) Chronic respiratory failure with hypoxia, on home oxygen therapy: Code(s): J96.11 - Chronic respiratory failure with hypoxia; Z99.81 - Dependence on supplemental oxygen Status: Acute Assessment and Plan: Typically on 2 L p.r.n. though she is now requiring 3 to 4 L. wean as tolerated. (3) Hyperglycemia: Code(s): R73.9 - Hyperglycemia, unspecified Status: Acute Assessment and Plan: Check fasting glucose and hemoglobin A1c. Initiate sliding scale insulin and Accu-Cheks while receiving steroids. (4) Atrial fibrillation: Code(s): I48.91 - Unspecified atrial fibrillation Status: Acute Assessment and Plan: Rate controlled on metoprolol. Continue apixaban for stroke prophylaxis. (5) Hypertension: Qualifiers: Hypertension type: essential hypertension Qualified Code(s): I10 - Essential (primary) hypertension Code(s): I10 - Essential (primary) hypertension Status: Acute Assessment and Plan: Blood pressures were reviewed and they have been running a bit high. Continue antihypertensives and monitor. (6) Obstructive sleep apnea on CPAP: Code(s): G47.33 - Obstructive sleep apnea (adult) (pediatric); Z99.89 - Dependence on other enabling machines and devices Status: Acute Assessment and Plan: CPAP will be provided for the patient to use while hospitalized. (7) Chronic obstructive pulmonary disease: Code(s): J44.9 - Chronic obstructive pulmonary disease, unspecified Status: Acute Assessment and Plan: No evidence of exacerbation. Continue home inhalers. Subjective Date/time seen: 04/08/22 10:22 no complaints Exam Narrative: General: Well-developed female sitting up in bed in no acute distress. She is nontoxic in appearance. Weight: 90.9 kg. BMI: 30.6. HEENT: PERRL, EOMI. Conjunctivae anicteric. Tacky mucous membranes. Neck: Supple. No JVD or lymphadenopathy. Respiratory: Respirations are nonlabored. SpO2 is 100% on 4 L nasal cannula. Occasional coarse crackles at the bases. No wheezing. Cardiovascular: Irregularly irregular rate and rhythm. Gastrointestinal: Abdomen is soft, nontender, and nondistended with positive bowel sounds. Skin: Warm and dry. No rash or lesions on limited exam. Extremities: No cyanosis, clubbing, or edema. Radial and pedal pulses intact. Negative Ally sign bilaterally. Neurological: Alert. Cranial nerves 2-12 are grossly intact. No gross focal deficits to casual conversation. Psychiatric: Pleasant and cooperative with normal mood and affect. Judgment and insight intact. Objective Data Vital Signs Vital Signs: Vital Signs - 24 hr 04/07/22 12:00 04/07/22 12:15 04/07/22 12:00 Temperature 97.3 F L Pulse Rate 69 46 L Respiratory Rate 16 Blood Pressure 93/78 L 102/78 Pulse Oximetry 99 Oxygen Delivery 04/07/22 16:00 04/07/22 16:00 04/07/22 18:45 Temperature 97.3 F L Pulse Rate 54 L 63 Respiratory Rate 16 Blood Pressure 150/99 H Pulse Oximetry 97 94 Oxygen Delivery Room Air 04/07/22 20:00 04/07/22 21:03 04/07/22 23:29 Temperature 97.0 F L Pulse Rate 73 68 80 Respiratory Rate 18 Blood Pressure 150/64 H Pulse Oximetry 94 95 Oxygen Delivery Autopap 04/08/22 00:00 04/07/22 20:00 04/07/22 20:00 Temperature 96.3 F L Pulse Rate 52 L 78 Respiratory Rate 16 Blood Pressure 148/87 H Pulse Oximetry 95 Oxygen Delivery Room Air 04/08/22 00:00 04/08/22 02:50 04/08/22 04:00 Temperature Pulse Rate 66 59 L 44 L Respira
[2022-04-08 12:06] LABS: Glucose Point of Care 140 mg/dl (65-105)
[2022-04-08 16:46] LABS: Glucose Point of Care 155 mg/dl (65-105)
[2022-04-08] MEDS: FUROSEMIDE 20 MG TABLET PO (17:01)
[2022-04-08] MEDS: MELATONIN 5 MG TABLET PO (21:20)
[2022-04-08] MEDS: REMDESIVIR 100 MG/NS 250 ML 100 MG/250 ML BAG IVPB (21:28)
[2022-04-08 21:45] LABS: Glucose Point of Care 195 mg/dl (65-105)
[2022-04-09] VITALS: BP 113/77; PULSE 48; PULSE 73; RESP 18; TEMP 35.7; O2SAT 98
[2022-04-09 02:40] VITALS: PULSE 71; O2SAT 96
[2022-04-09 04:00] VITALS: BP 158/61; PULSE 53; PULSE 54; RESP 18; TEMP 35.6; O2SAT 100
[2022-04-09] MEDS: LEVOTHYROXINE SODIUM 50 MCG TABLET BY MOUTH (06:08)
[2022-04-09 07:18] LABS: INR 1.4; Prothrombin Time 16.7 Seconds (11.1-14.7)
[2022-04-09 07:19] LABS: Alanine Aminotransferase 20 U/L (6-35); Estimated CRCL calculation 58 ml/min; Estimated Glomerular Filt Rate > 60
[2022-04-09 07:43] LABS: Glucose Point of Care 117 mg/dl (65-105)
[2022-04-09 08:00] VITALS: BP 140/92; PULSE 52; PULSE 58; RESP 20; TEMP 35.8; O2SAT 97
[2022-04-09 08:29] VITALS: PULSE 62
[2022-04-09] MEDS: DEXAMETHASONE 2 MG TABLET 6 MG PO (08:29)
[2022-04-09] MEDS: DOXAZOSIN MESYLATE 4 MG TABLET BY MOUTH (08:29)
[2022-04-09] MEDS: MULTIVITAMINS THERAPEUTIC TAB (*BKC) 1 TABLET PO (08:29)
[2022-04-09] MEDS: SERTRALINE HCL 50 MG TABLET 100 MG BY MOUTH (08:29)
[2022-04-09] MEDS: METOPROLOL TARTRATE 25 MG TABLET PO (08:29)
[2022-04-09] MEDS: amLODIPine BESYLATE 5 MG TABLET BY MOUTH (08:29)
[2022-04-09] MEDS: FUROSEMIDE 40 MG TABLET PO (08:29)
[2022-04-09] MEDS: guaiFENesin 12 HR 600 MG TABCR PO (08:29)
[2022-04-09] MEDS: ATORVASTATIN 40 MG TABLET PO (08:29)
[2022-04-09] MEDS: APIXABAN 5 MG TABLET PO (08:29)
[2022-04-09] MEDS: LOSARTAN POTASSIUM 100 MG TABLET BY MOUTH (08:29)
[2022-04-09 11:49] LABS: Glucose Point of Care 188 mg/dl (65-105)
[2022-04-09 12:00] VITALS: BP 106/36; PULSE 63; PULSE 67; RESP 20; TEMP 36.3; O2SAT 94
--- NOTE | 2022-04-09 12:01 | PM.DS ---
DS: Admitting Diagnosis Discharge Date April 09, 2022 Admitting Diagnosis COVID DS: Discharge Diagnosis Discharge Diagnosis (1) COVID-19: Code(s): U07.1 - COVID-19 Status: Acute Assessment and Plan: Patient was admitted for COVID pneumonia. Initially required oxygen. She was started on remdesivir and dexamethasone. She did exceptionally well and on her 2nd hospitalization day she was off oxygen completely. She is ambulating around her room without any issues. She will be sent home on dexamethasone orally. (2) Chronic respiratory failure with hypoxia, on home oxygen therapy: Code(s): J96.11 - Chronic respiratory failure with hypoxia; Z99.81 - Dependence on supplemental oxygen Status: Acute Assessment and Plan: Not on any additional oxygen at this time (3) Hyperglycemia: Code(s): R73.9 - Hyperglycemia, unspecified Status: Acute Assessment and Plan: Check fasting glucose and hemoglobin A1c. Initiate sliding scale insulin and Accu-Cheks while receiving steroids. (4) Atrial fibrillation: Code(s): I48.91 - Unspecified atrial fibrillation Status: Acute Assessment and Plan: Rate controlled on metoprolol. Continue apixaban for stroke prophylaxis. (5) Hypertension: Qualifiers: Hypertension type: essential hypertension Qualified Code(s): I10 - Essential (primary) hypertension Code(s): I10 - Essential (primary) hypertension Status: Acute Assessment and Plan: Blood pressures were reviewed and they have been running a bit high. Continue antihypertensives and monitor. (6) Obstructive sleep apnea on CPAP: Code(s): G47.33 - Obstructive sleep apnea (adult) (pediatric); Z99.89 - Dependence on other enabling machines and devices Status: Acute Assessment and Plan: CPAP will be provided for the patient to use while hospitalized. (7) Chronic obstructive pulmonary disease: Code(s): J44.9 - Chronic obstructive pulmonary disease, unspecified Status: Acute Assessment and Plan: No evidence of exacerbation. Continue home inhalers. DS: Summary Hospital Course Hospital Course: See discharge plan for the diagnoses. Time Spent with Patient Time attestation: Total time spent providing and/or coordinating discharge services: Exam Narrative: General: Well-developed female sitting up in bed in no acute distress. She is nontoxic in appearance. Weight: 90.9 kg. BMI: 30.6. HEENT: PERRL, EOMI. Conjunctivae anicteric. Tacky mucous membranes. Neck: Supple. No JVD or lymphadenopathy. Respiratory: Respirations are nonlabored. SpO2 is 100% on 4 L nasal cannula. Occasional coarse crackles at the bases. No wheezing. Cardiovascular: Irregularly irregular rate and rhythm. Gastrointestinal: Abdomen is soft, nontender, and nondistended with positive bowel sounds. Skin: Warm and dry. No rash or lesions on limited exam. Extremities: No cyanosis, clubbing, or edema. Radial and pedal pulses intact. Negative Ally sign bilaterally. Neurological: Alert. Cranial nerves 2-12 are grossly intact. No gross focal deficits to casual conversation. Psychiatric: Pleasant and cooperative with normal mood and affect. Judgment and insight intact. DS: Data Data Completed and Pending Labs on day of discharge: Labs from last 24 hours 04/09/22 04/09/22 04/09/22 11:19 07:39 06:38 PT INR Creatinine 0.80 Estim Creat Clear Calc 58 Estimated GFR > 60 POC Capillary Glucose 188 H 117 H ALT 20 04/09/22 04/08/22 04/08/22 06:38 21:22 16:35 PT 16.7 H INR 1.4 Creatinine Estim Creat Clear Calc Estimated GFR POC Capillary Glucose 195 H 155 H ALT 04/08/22 11:48 PT INR Creatinine Estim Creat Clear Calc Estimated GFR POC Capillary Glucose 140 H ALT Discharge Plan Discharge Attending physician on discharge: Tyrone Mcgovern
== END 2022-04-09 14:46 | disposition home or self-care (01) | DRG 178 ==
LOC: ANHED 16:20 → ANH3MEDSUR 18:41
PROVIDERS: Emergency Medicine; Physician Assistant; Surgery; Admitting Provider Chiropractor; Emergency Provider Preventive Medicine Aerospace Medicine; PCP Internal Medicine; Visit Provider Chiropractor
DX: U07.1 COVID-19 (principal); J96.11 Chronic respiratory failure with hypoxia; J44.9 Chronic obstructive pulmonary disease, unspecified; R73.9 Hyperglycemia, unspecified; I48.91 Unspecified atrial fibrillation; G47.33 Obstructive sleep apnea (adult) (pediatric); I10 Essential (primary) hypertension; E03.9 Hypothyroidism, unspecified; F41.8 Other specified anxiety disorders; Z99.81 Dependence on supplemental oxygen; Z85.72 Personal history of non-Hodgkin lymphomas; Z79.01 Long term (current) use of anticoagulants; Z98.42 Cataract extraction status, left eye; Z98.41 Cataract extraction status, right eye
CPT/HCPCS: 36415; 71046; 80048; 80053; 82565; 82728; 82948; 83036; 83615; 83735; 84439; 84443; 84460; 84480; 85025; 85027; 85610; 86140; 93005; 94660; 96365; 96366; 99285; A9270; C9803; G0378; J0248; J8540; U0003; U0005

== ENCOUNTER 2022-06-05 13:40 | Emergency (ER) | payer OTHER, SELFPAY ==
[2022-06-05] VITALS (8 sets, daily range): BP systolic 123–141; BP diastolic 63–84; PULSE 55–83; RESP 14–28; TEMP 36.6; O2SAT 94–100
--- NOTE | ~2022-06-05 | XR_ITS ---
EXAMINATION: XR chest 2V DATE: 06/05/2022 14:38 INDICATION: Shortness of breath TECHNIQUE: AP and lateral views of the chest are obtained. COMPARISON: 04/06/2022 FINDINGS: The lungs are free of acute opacities. Chronic interstitial opacities of the lungs are not significantly changed. No pleural effusion or pneumothorax. Cardiomegaly is noted. There is moderate thoracic spondylosis. There are changes of right shoulder arthroplasty. Surgical clips are noted in t he right axilla. 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 IMPRESSION: 1. Chronic interstitial lung disease without acute cardiopulmonary abnormality. Reviewed, dictated and finalized at location F.
--- NOTE | 2022-06-05 13:47 | ECG_ITS ---
Measurements Intervals [place] Rate: 49 P: CT: 0 QRS: 28 QRSD: 108 T: 47 QT: 413 QTc: 373 Interpretive Statements ATRIAL FIBRILLATION WITH SLOW VENTRICULAR RESPONSE LOW QRS VOLTAGE IN PRECORDIAL LEADS [QRS DEFLECTION < 1.0 mV IN CHEST LEADS] NONSPECIFIC ST-T CHANGES COMPARED TO ECG 04/07/2022 06:16:45 NO SIGNIFICANT CHANGES Electronically Signed On 06-05-2022 19:49:30 CDT by Chelly Paul M.D.
[2022-06-05 14:03] LABS: Basophils Percent Auto 0.3 % (0.2-1.2); Eosinophils Absolute Auto 0.1 K/mm3 (0-0.3); Eosinophils Percent Auto 1.3 % (0-4.4); Hematocrit 34.9 % (37.0-47.0); Hemoglobin 11.8 g/dL (12.0-15.0); Immature Granulocyte Absolute 0.04 K/mm3 (0.00-0.031); Immature Granulocyte Percent A 0.5 % (0-0.5); Lymphocytes Absolute Auto 2.41 K/mm3 (0.9-3.2); Lymphocytes Percent Auto 27.4 % (18.3-44.2); Mean Corpuscular HGB Conc 33.8 g/dl (32-36); Mean Corpuscular Hemoglobin 32.2 pg (26-34); Mean Corpuscular Volume 95.1 fl (80-100); Mean Platelet Volume 9.5 fl (7.4-10.4); Monocytes Absolute Auto 0.4 K/mm3 (0.1-0.6); Neutrophils Absolute Auto 5.8 K/mm3 (1.3-6.7); Neutrophils Percent Auto 65.5 % (45.5-73.1); Platelet Count Result 145 k/mm3 (150-375); Red Blood Count 3.67 M/mm3 (4.2-5.4); Red Cell Distribution Width 13.2 % (11.5-14.5); White Blood Count 8.8 K/mm3 (4.5-10.0)
[2022-06-05 14:14] LABS: Alanine Aminotransferase 20 U/L (6-35); Albumin Level 4.1 g/dL (3.5-5.1); Alkaline Phosphatase 55 U/L (38-126); Anion Gap 12 mmol/L (8-16); Aspartate Amino Transferase 27 U/L (14-36); Bilirubin,Total 0.7 mg/dL (0.2-1.3); Blood Urea Nitrogen 18 mg/dL (7-17); Calcium 8.7 mg/dL (8.4-10.2); Carbon Dioxide 27 mmol/L (22-30); Chloride 99 mmol/L (98-107); Estimated Glomerular Filt Rate > 60; Glucose 167 mg/dL (65-110); Potassium 3.7 mmol/L (3.4-5.0); Sodium 138 mmol/L (137-145)
--- NOTE | 2022-06-05 15:11 | ED.SOB ---
HPI - SOB/Dyspnea General Chief Complaint: Shortness of Breath/Dyspnea Stated Complaint: possible Afib at home Time Seen by Provider: 06/05/22 14:51 History of Present Illness HPI Narrative: 76-year-old female presenting with cough for few days and increased shortness of breath with some wheezing, she does have a history of COPD and A. fib and she thinks that her A. fib may be acting up. Denies any chest pain. Related Data Home Medications Medication Instructions Recorded Confirmed albuterol sulfate 90 mcg/actuation 2 puff inhalation QID PRN 08/17/19 04/07/22 aerosol inhaler (ProAir HFA) Shortness Of Breath atorvastatin 40 mg tablet 40 mg PO DAILY 02/03/20 04/07/22 metoprolol tartrate 50 mg tablet 25 mg PO BID 02/03/20 04/07/22 apixaban 5 mg tablet (Eliquis) 5 mg PO BID 07/28/20 04/07/22 multivitamin (Daily Multi-Vitamin 1 tablet PO DAILY 12/04/20 04/07/22 tablet) furosemide 40 mg tablet 40 mg PO DAILY 12/14/21 04/07/22 Allergies Allergy/AdvReac Type Severity Reaction Status Date / Time No Known Allergies Allergy Verified 04/06/22 16:08 Review of Systems Review of Systems: CONST: No fever. HEENT: No sore throat C/V: No chest pain RESP: Shortness of breath, cough GI: No abdominal pain : No dysuria. M/S: No joint pain. SKIN: No rash. NEURO: [No headache or focal numbness or weakness] PSYCH: [No depression] [facility] Past Medical History Medical History Atrial fibrillation Chronic obstructive pulmonary disease Chronic respiratory failure with hypoxia, on home oxygen therapy Depression with anxiety Follicular lymphoma Hypertension Hypothyroidism Interstitial lung disease Obstructive sleep apnea on CPAP Surgical History Surgical History History of arthroscopy of right shoulder History of bilateral cataract extraction Family History Family History Sibling Family history of cardiovascular disease Mother Family history of primary malignant neoplasm of liver, Onset Age: 83 Social History Social History Social History: Surrogate medical decision maker: Tyrone Newton, spouse. Code status: Full code. Smoking status: Never smoker Second hand tobacco smoke exposure: Yes (As a child and young adult) Alcohol intake: never Substance use: never Substance use type: does not use Spiritual care concerns: No Agree to blood products: Yes Exam Narrative: EXAMINATION OF ORGAN SYSTEMS/BODY AREAS: Constitutional: Vital signs per nursing GENERAL:[No acute distress, non-toxic appearing.] HEAD: Normal with no signs of head trauma. EYES: EOMI, conjunctiva normal ENT: Hearing grossly intact LUNGS: Nonlabored breathing. Wheezing bilaterally. Speaking in full sentences, on home oxygen HEART: [Regular rate and rhythm] ABD: [Soft], [nontender to palpation] EXT: Normal range of motion SKIN: [No rashes or lesions.] NEURO: [Alert and oriented x 3. No gross focal sensory or strength deficits.] PSYCH: Normal affect Course Vital Signs Vital signs: Vital Signs Temperature 97.8 F 06/05/22 13:54 Pulse Rate 71 06/05/22 13:54 Respiratory Rate 20 06/05/22 13:54 Blood Pressure 123/84 06/05/22 13:54 Pulse Oximetry 94 06/05/22 13:54 Oxygen Delivery Nasal Cannula 06/05/22 13:54 Oxygen Flow Rate 2.0 06/05/22 13:54 Temperature 97.8 F 06/05/22 13:54 Pulse Rate 72 06/05/22 16:33 Respiratory Rate 28 H 06/05/22 16:23 Blood Pressure 141/63 H 06/05/22 16:18 Pulse Oximetry 100 06/05/22 16:32 Oxygen Delivery Nasal Cannula 06/05/22 16:32 Oxygen Flow Rate 2 06/05/22 16:32 MDM - SOB/Dyspnea MDM Narrative Medical decision making narrative: 76-year-old female presenting with cough for few days and increase difficulty breathing, vital signs stable, exam sh
[2022-06-05] MEDS: IPRATROPIUM BR 0.02% INH SOLN 0.5 MG/2.5 ML VIAL 1 MG INHALATION (15:20)
[2022-06-05] MEDS: ALBUTEROL SULFATE NEB 2.5 MG/3 ML INH 15 MG INHALATION (15:20)
[2022-06-05] MEDS: AZITHROMYCIN 250 MG TABLET 500 MG PO (16:14)
[2022-06-05] MEDS: predniSONE 20 MG TABLET 60 MG PO (16:14)
== END 2022-06-05 17:36 | disposition home or self-care (01) ==
PROVIDERS: Emergency Medicine; Emergency Provider Emergency Medicine; PCP Internal Medicine
DX: J44.1 Chronic obstructive pulmonary disease with (acute) exacerbation (principal); J06.9 Acute upper respiratory infection, unspecified; I48.91 Unspecified atrial fibrillation; J96.11 Chronic respiratory failure with hypoxia; Z99.81 Dependence on supplemental oxygen; I10 Essential (primary) hypertension; E03.9 Hypothyroidism, unspecified; J84.9 Interstitial pulmonary disease, unspecified; G47.33 Obstructive sleep apnea (adult) (pediatric); Z79.01 Long term (current) use of anticoagulants; Z98.42 Cataract extraction status, left eye; Z98.41 Cataract extraction status, right eye
CPT/HCPCS: 36415; 71046; 80053; 85025; 93005; 94640; 99284; A9270; J7512

== ENCOUNTER 2022-07-20 08:48 | Outpatient (CLI) | payer OTHER, SELFPAY ==
--- NOTE | ~2022-07-20 | DEXA_ITS ---
Bone Density Report Name: NEHEMIAH MURRAY Age: 76 Sex: Female Ethnicity: White Date of : 1945 Indication: postmenopausal; screening for osteoporosis; height loss; asthma or emphysema; Referring Provider: BLAYNE RUBIO Study: Bone densitometry was performed. Exam Date: July 20, 2022 Accession number: [id number] Bone Density: Region BMD T-score Z-score Classification AP Spine(L1-L4) 1.265 2.0 4.5 Normal Femoral Neck (Left) 0.666 -1.6 0.6 Osteopenia Total Hip (Left) 0.852 -0.7 1.2 Normal Femoral Neck (Right) 0.635 -1.9 0.3 Osteopenia Total Hip (Right) 0.770 -1.4 0.5 Osteopenia Total Hip Mean 0.811 -1.1 0.9 Osteopenia World Health Organization criteria for BMD impression classify patients as: Normal (T-score at or above -1.0), Osteopenia (T-score between -1.0 and -2.5), or Osteoporosis (T-score at or below -2.5). 10-year Fracture Risk(1): Major Osteoporotic Fracture 13% Hip Fracture 3.2% Reported Risk Factors: [place] (), Neck BMD=0.635, BMI=40.3 (1) FRAX(R) Version 3.08. Fracture probability calculated for an untreated patient. Fracture probability may be lower if the patient has received treatment. Clinical Information Provided by Patient: Has the following medical conditions: Asthma or Emphysema, lymphoma Patient maximum height was 63 Menopause Age: 49 No regular weight bearing exercise Onset of menses at age 12 Number of children 0 Impression: The patient has low bone mass, based on the Right Femoral Neck T-score. The patient has an estimated ten-year risk of hip fracture of 3.2% and an estimated ten-year risk of major fracture of 13%, based on the WHO FRAX algorithm. Discussion: BONE DENSITY IS LOW AT ONE OR MORE SKELETAL SITES. THE PATIENT'S BMD AND CLINICAL RISK FACTORS CONTRIBUTE TO THIS PATIENT'S INCREASED RISK OF FRACTURE. This patient's lowest T-score is low at one or more skeletal sites. It meets the World Health Organization's (WHO) criteria for ?low bone mass? (T-score between -1.0 and -2.5). The patient's 10-year risk of hip fracture as calculated by FRAX exceeds the threshold where pharmacological therapy is recommended by the National Osteoporosis Foundation (NOF). However, all treatment decisions require clinical judgment and consideration of individual patient factors, including patient preferences, comorbidities, previous drug use, risk factors not captured in the FRAX model (e.g., frailty, falls, vitamin D deficiency, increased bone turnover, interval significant decline in bone density) and possible under or overestimation of fracture risk by FRAX. The patient should follow a healthful lifestyle (good nutrition with adequate calcium and vitamin D, and appropriate weight-bearing exercise). Follow-Up: Consider a repeat BMD and Jeet
--- NOTE | ~2022-07-20 | MM_ITS ---
EXAMINATION: MM screening grant BI w fabrizio HISTORY: Screening mammogram TECHNIQUE: Craniocaudal and mediolateral oblique 3-D tomosynthesis images were obtained and synthetic 2-D images were generated. CAD analysis was submitted and interpreted. COMPARISON: 07/19/2021, 09/09/2016, 08/21/2013 BREAST PARENCHYMAL COMPOSITION: There are scattered areas of fibroglandular density. FINDINGS: Scattered benign-appearing calcifications are present. No suspicious mass, calcification, o r architectural distortion are identified in either breast to suggest malignancy. There has been no s uspicious interval change. IMPRESSION: 1. No mammographic evidence of malignancy. 2. Recommend routine screening mammography in one year. BI-RADS Category 2: Benign finding(s). Reviewed, dictated and finalized at location A. [employer]CK[employer] HELPER
== END 2022-07-20 08:49 | disposition home or self-care (01) ==
PROVIDERS: PCP Internal Medicine; Visit Provider Nurse Practitioner
DX: Z12.31 Encounter for screening mammogram for malignant neoplasm of breast (principal); Z78.0 Asymptomatic menopausal state; M85.852 Other specified disorders of bone density and structure, left thigh; M85.851 Other specified disorders of bone density and structure, right thigh
CPT/HCPCS: 77063; 77067; 77080

== ENCOUNTER 2022-11-05 13:05 | Emergency (ER) | payer OTHER, SELFPAY ==
--- NOTE | ~2022-11-05 | XR_ITS ---
EXAMINATION: XR chest 1V portable INDICATION: Nonproductive cough TECHNIQUE: Portable AP chest at 1342 hours COMPARISON: 06/05/2022 FINDINGS: The lungs are free of acute opacities. No pleural effusion or pneumothorax. Cardiomegaly is noted. Chronic interstitial opacities of the lungs are stable. Changes of right shoulder arthroplast y are noted. 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 Surgical clips are pres ent in the right axilla. IMPRESSION: 1. Stable chronic interstitial lung disease without acute findings. Reviewed, dictated and finalized at location A.
[2022-11-05 13:15] VITALS: BP 133/61; PULSE 70; RESP 18; TEMP 36.4; O2SAT 95
--- NOTE | 2022-11-05 13:18 | ECG_ITS ---
Measurements Intervals [place] Rate: 56 P: VA: 0 QRS: 19 QRSD: 91 T: 27 QT: 421 QTc: 408 Interpretive Statements ATRIAL FIBRILLATION WITH SLOW VENTRICULAR RESPONSE LOW QRS VOLTAGE IN PRECORDIAL LEADS INCOMPLETE RIGHT BUNDLE BRANCH BLOCK BORDERLINE ST-T WAVE ABNORMALITY- DIFFUSE LEADS BASELINE ARTIFACT- I, III, AVR, AVL, AVF, V1-V6 ABNORMAL ECG COMPARED TO ECG 06/05/2022 13:49:39 NO SIGNIFICANT CHANGES Electronically Signed On 11-05-2022 16:33:55 CDT by Jose Hodges D.O.
[2022-11-05 13:28] VITALS: PULSE 58
[2022-11-05 13:29] VITALS: O2SAT 99
[2022-11-05 13:39] LABS: Basophils Percent Auto 0.3 % (0.2-1.2); Eosinophils Absolute Auto 0.1 K/mm3 (0-0.3); Eosinophils Percent Auto 1.2 % (0-4.4); Hematocrit 34.3 % (37.0-47.0); Hemoglobin 11.3 g/dL (12.0-15.0); Immature Granulocyte Absolute 0.03 K/mm3 (0.00-0.031); Immature Granulocyte Percent A 0.3 % (0-0.5); Lymphocytes Percent Auto 28.8 % (18.3-44.2); Mean Corpuscular HGB Conc 32.9 g/dl (32-36); Mean Corpuscular Volume 97.2 fl (80-100); Mean Platelet Volume 9.5 fl (7.4-10.4); Monocytes Absolute Auto 0.6 K/mm3 (0.1-0.6); Monocytes Percent Auto 6.8 % (2.6-8.5); Neutrophils Absolute Auto 5.4 K/mm3 (1.3-6.7); Neutrophils Percent Auto 62.6 % (45.5-73.1); Platelet Count Result 132 k/mm3 (150-375); Red Blood Count 3.53 M/mm3 (4.2-5.4); Red Cell Distribution Width 13.7 % (11.5-14.5); White Blood Count 8.7 K/mm3 (4.5-10.0)
--- NOTE | 2022-11-05 13:46 | ED.SOB ---
HPI - SOB/Dyspnea General Chief Complaint: Shortness of Breath/Dyspnea Stated Complaint: sore throat/cough/a-fib Time Seen by Provider: 11/05/22 13:45 Source: patient and family Mode of arrival: ambulatory History of Present Illness HPI Narrative: 77 years old white female came to the emergency room by private car because of coughing, scratchy throat, nasal congestion and runny nose that started yesterday. History of COPD and chronic oxygen of 2 L/min. She denies any chest pain, back pain, fever, chills, nausea or vomiting. Related Data Home Medications Medication Instructions Recorded Confirmed atorvastatin 40 mg tablet 40 mg PO DAILY 02/03/20 11/02/22 metoprolol tartrate 50 mg tablet 25 mg PO BID 02/03/20 11/02/22 apixaban 5 mg tablet (Eliquis) 5 mg PO BID 07/28/20 11/02/22 multivitamin (Daily Multi-Vitamin 1 tablet PO DAILY 12/04/20 11/02/22 tablet) furosemide 40 mg tablet 40 mg PO DAILY 12/14/21 11/02/22 Allergies Allergy/AdvReac Type Severity Reaction Status Date / Time No Known Allergies Allergy Verified 11/05/22 13:06 Review of Systems Review of Systems: All systems reviewed & are unremarkable except as noted in HPI and below PMFSH Past Medical History Medical History Atrial fibrillation Chronic obstructive pulmonary disease Chronic respiratory failure with hypoxia, on home oxygen therapy Depression with anxiety Follicular lymphoma Hypertension Hypothyroidism Interstitial lung disease Obstructive sleep apnea on CPAP Surgical History Surgical History History of arthroscopy of right shoulder History of bilateral cataract extraction Family History Family History Sibling Family history of cardiovascular disease Mother Family history of primary malignant neoplasm of liver, Onset Age: 83 Social History Social History Social History: Surrogate medical decision maker: Tyrone Lamar, spouse. Code status: Full code. Smoking status: Never smoker Second hand tobacco smoke exposure: Yes (As a child and young adult) Alcohol intake: never Substance use: never Substance use type: does not use Lack of Transportation: No Lack of Food: Never True Current Housing: I Have Housing Concerned About Future Housing: No Difficulty Paying Gas/Electric Bills: No Difficulty Paying for Meds: No Currently Unemployed: No Education: High School Diploma/GED Difficulty w/ Childcare or Family Care: No Living arrangements: with family Occupation/Education: retired Spiritual care concerns: No Agree to blood products: Yes Exam Narrative: General appearance: Well-developed, well-nourished Skin: Normal color Head: Normocephalic, nontraumatic Eyes: Clear conjunctiva ENT: Oropharynx normal, ears normal, runny nose Neck: Supple, nontender Chest and respiratory: Airway patent, no respiratory distress, no accessory muscle use Heart: Regular rate/rhythm Abdomen: Soft, nontender, no organomegaly, quiet bowel sounds Vascular: Normal peripheral pulses, normal capillary refill. Musculoskeletal: Normal range of motion, nontender back Neurologic: Alert and oriented ?3, TOMBSTONE SETTER is normal as tested, no gross motor deficit Course Reevaluation(s) Reevaluation #1: Feeling much better, 100% oxygenation on 2 L, looks comfortable and ready to go home Date: 11/05/22 Time: 15:31 Vital Signs Vital signs: Vital Signs Temperature 36.4 C L 11/05/22 13:15 Pulse Rate 70 11/05/22 13:15 Respiratory Rat
[2022-11-05 13:48] LABS: INR 1.6; Prothrombin Time 18.8 Seconds (11.1-14.7)
[2022-11-05 13:49] LABS: Partial Thromboplastin Time 33.8 SECONDS (22.3-36.8)
[2022-11-05 13:52] LABS: Alanine Aminotransferase 21 U/L (6-35); Albumin Level 3.9 g/dL (3.5-5.1); Alkaline Phosphatase 56 U/L (38-126); Anion Gap 4 mmol/L (8-16); Aspartate Amino Transferase 29 U/L (14-36); Bilirubin,Total 0.7 mg/dL (0.2-1.3); Blood Urea Nitrogen 18 mg/dL (7-17); Calcium 8.4 mg/dL (8.4-10.2); Carbon Dioxide 31 mmol/L (22-30); Chloride 102 mmol/L (98-107); Estimated CRCL calculation 57 ml/min; Estimated Glomerular Filt Rate > 60; Glucose 131 mg/dL (65-110); Potassium 3.6 mmol/L (3.4-5.0); Sodium 137 mmol/L (137-145)
[2022-11-05 14:02] LABS: NT Pro B Type Natriuretic Pept 1730 pg/mL (19.9-100); Troponin I < 0.012 ng/mL (0.000-0.034)
[2022-11-05 14:19] LABS: Influenza A QL RT-PCR Negative (Negative); Influenza B QL RT-PCR Negative (Negative); RSV RNA, RT-PCR Negative (Negative); SARS-CoV-2 RNA PCR Negative
[2022-11-05 14:25] VITALS: BP 124/64; PULSE 58; RESP 20; O2SAT 99
[2022-11-05 16:14] VITALS: BP 125/76; PULSE 60; RESP 18; O2SAT 99
== END 2022-11-05 16:16 | disposition home or self-care (01) ==
PROVIDERS: Emergency Provider Emergency Medicine; PCP Internal Medicine
DX: J44.9 Chronic obstructive pulmonary disease, unspecified (principal); J06.9 Acute upper respiratory infection, unspecified; I48.91 Unspecified atrial fibrillation; I10 Essential (primary) hypertension; E03.9 Hypothyroidism, unspecified; G47.33 Obstructive sleep apnea (adult) (pediatric); Z99.81 Dependence on supplemental oxygen; Z20.822 Contact with and (suspected) exposure to COVID-19
CPT/HCPCS: 36415; 71045; 80053; 83880; 84484; 85025; 85610; 85730; 87637; 93005; 99284

== ENCOUNTER 2022-12-03 17:46 | Observation (INO) | payer OTHER, SELFPAY ==
[2022-12-03] VITALS (8 sets, daily range): BP systolic 126–162; BP diastolic 54–89; PULSE 68–99; RESP 16–20; TEMP 36.5–37.1; O2SAT 90–94; BMI 39.8
--- NOTE | ~2022-12-03 | XR_ITS ---
EXAMINATION: XR retrograde pyelo w/stent RT DATE: 12/04/2022 11:00 CDT INDICATION: STENT, RETRO RIGHT . TECHNIQUE: 1 fluoroscopic image of the mid abdomen were obtained during right retrograde pyelography with stent placement performed by the surgeon. I was not present in the operating room. Fluoroscopy e xposure time was 11.3 seconds. DAP [id number] [id number]. COMPARISON: CT abdomen pelvis 12/03/2022 FINDINGS: A single image demonstrates the proximal portion of a ureteral stent in the right collecting system. There is mild right caliectasis and pelviectasis. The proximal coil appears to be in the renal pelvis or the proximal portion of the calyx. IMPRESSION: Fluoroscopic documentation of right retrograde pyelography with stent placement. Please refer to the operative note for complete procedural details . Reviewed, dictated and finalized at location K. IMPRESSION: Fluoroscopic documentation of right retrograde pyelography with stent placement . Please refer to the operative note for complete procedural details .
--- NOTE | ~2022-12-03 | CT_ITS ---
EXAMINATION: CT abdomen pelvis wo con DATE: 12/03/2022 21:17 INDICATION: R sided flank/abd pain, UTI TECHNIQUE: Computed tomography (CT) of the abdomen and pelvis was performed without intravenous contr ast. Automated exposure control and iterative reconstruction technique were employed. The dose-length product was 1369.81 mGy-cm. COMPARISON: CT chest from 10/06/2021 and 09/27/2019; CT abdomen 11/25/2008. FINDINGS: Lower thorax: Stable benign left lower lobe granuloma. Coronary artery calcifications. Mild interstit ial changes. Liver: Normal. Biliary/Gallbladder: Gallbladder is partially collapsed. No bile duct dilation. Pancreas: No mass or duct dilation. Spleen: Normal. Adrenals:Somewhat nodular appearing adrenal glands, possible adenomas on the left. Kidneys: Bilateral perinephric stranding, greater on the right. Multiple exophytic left renal cysts. Moderate right pelviectasis and caliectasis. 4 mm nonobstructing stone in the distal right renal pelv is. 4 x 8 mm stone in the proximal right ureter. GI tract: No small or large bowel dilation. Normal appendix. Mesentery/Peritoneum: No ascites, mass, or free air. Retroperitoneum: No mass. Atherosclerotic abdominal aortic and/or arterial calcifications. Pelvis: Pelvic organs are within normal limits. Soft Tissues: Soft tissues and body wall unremarkable. Bones: No acute osseous finding. IMPRESSION: 4 by 8mm proximal right ureteral stone causing moderate obstructive uropathy. Reviewed, dictated and finalized at location K.
--- NOTE | ~2022-12-03 | XR_ITS ---
EXAMINATION: XR abdomen/kub 1V INDICATION: Right-sided kidney stone TECHNIQUE: Supine views of the abdomen were obtained on 2 radiographs. COMPARISON: CT of the same date FINDINGS: There is a subtle 4 mm calcification projecting at the level of the L3-4 disc space, likely reflecting the known proximal ureteral stone. No additional urolithiasis is identified although sens itivity is limited by overlying bowel contents. The visualized lung bases are clear. The bowel gas pa ttern is normal. IMPRESSION: 1. Subtle 4 mm calcification projecting in the expected location of the known proximal right ureteral stone. Reviewed, dictated and finalized at location A. IMPRESSION: 1. Subtle 4 mm calcification projecting in the expected location of the known p roximal right ureteral stone.
[2022-12-03 18:18] LABS: Basophils Percent Auto 0.3 % (0.2-1.2); Eosinophils Percent Auto 0.3 % (0-4.4); Hematocrit 35.5 % (37.0-47.0); Hemoglobin 11.6 g/dL (12.0-15.0); Immature Granulocyte Absolute 0.05 K/mm3 (0.00-0.031); Immature Granulocyte Percent A 0.5 % (0-0.5); Lymphocytes Percent Auto 21.7 % (18.3-44.2); Mean Corpuscular HGB Conc 32.7 g/dl (32-36); Mean Corpuscular Hemoglobin 32.1 pg (26-34); Mean Corpuscular Volume 98.3 fl (80-100); Monocytes Absolute Auto 0.9 K/mm3 (0.1-0.6); Monocytes Percent Auto 9.3 % (2.6-8.5); Neutrophils Absolute Auto 6.6 K/mm3 (1.3-6.7); Neutrophils Percent Auto 67.9 % (45.5-73.1); Platelet Count Result 148 k/mm3 (150-375); Red Blood Count 3.61 M/mm3 (4.2-5.4); Red Cell Distribution Width 13.3 % (11.5-14.5); White Blood Count 9.7 K/mm3 (4.5-10.0)
[2022-12-03 18:26] LABS: Alanine Aminotransferase 17 U/L (6-35); Albumin Level 3.8 g/dL (3.5-5.1); Alkaline Phosphatase 53 U/L (38-126); Anion Gap 5 mmol/L (8-16); Aspartate Amino Transferase 22 U/L (14-36); Blood Urea Nitrogen 16 mg/dL (7-17); Carbon Dioxide 27 mmol/L (22-30); Chloride 100 mmol/L (98-107); Estimated CRCL calculation 47 ml/min; Estimated Glomerular Filt Rate 54; Glucose 146 mg/dL (65-110); Potassium 3.1 mmol/L (3.4-5.0); Sodium 132 mmol/L (137-145)
--- NOTE | 2022-12-03 20:54 | ED.FEMALEGU ---
HPI - Female Genitourinary General Chief complaint: Urogenital-Female <Betsy Thomason PA-C - Last Filed: 12/04/22 01:36> Stated complaint: CLOUDY URINE, R SIDED BACK PAIN <Betsy Thomason PA-C - Last Filed: 12/04/22 01:36> Time Seen by Provider: 12/03/22 20:44 <Betsy Thomason PA-C - Last Filed: 12/04/22 01:36> History of Present Illness HPI Narrative: Patient is a 77-year-old female with a history of frequent UTIs here for evaluation of cloudy dark urine x3 days. Patient states that this is the first symptom that manifested, however 2 days ago she started to feel weak and fatigued. She also developed a soreness in her right low back that occasionally radiates into her right abdomen. She has not taken any medicine for her pain. No nausea, vomiting, diarrhea, constipation, fevers, chills, chest pain. She has some degree of chronic shortness of breath due to COPD, no worse than usual. No history of kidney stones. <Betsy Thomason PA-C - Last Filed: 12/04/22 01:36> Related Data Home medications: Home Medications Medication Instructions Recorded Confirmed atorvastatin 40 mg tablet 40 mg PO DAILY 02/03/20 12/04/22 metoprolol tartrate 50 mg tablet 25 mg PO BID 02/03/20 12/04/22 apixaban 5 mg tablet (Eliquis) 5 mg PO BID 07/28/20 12/04/22 multivitamin (Daily Multi-Vitamin 1 tablet PO DAILY 12/04/20 12/04/22 tablet) furosemide 40 mg tablet 40 mg PO DAILY 12/14/21 12/04/22 amlodipine 5 mg tablet 5 mg PO DAILY 12/03/22 12/03/22 doxazosin 4 mg tablet 4 mg PO QPM 12/04/22 12/04/22 levothyroxine 50 mcg tablet 50 mcg PO DAILY 12/04/22 12/04/22 losartan 100 mg tablet 100 mg PO DAILY 12/04/22 12/04/22 sertraline 100 mg tablet 100 mg PO DAILY 12/04/22 12/04/22 <Betsy Thomason PA-C - Last Filed: 12/04/22 01:36> Allergies/Adverse reactions: Allergies Allergy/AdvReac Type Severity Reaction Status Date / Time No Known Allergies Allergy Verified 12/03/22 22:31 <Betsy Thomason PA-C - Last Filed: 12/04/22 01:36> Review of Systems Review of Systems: Gen.: Reports weakness. Denies fevers or chills Eyes: Denies eye pain or visual change ENT: Denies congestion Respiratory: Denies shortness of breath or cough CV: Denies chest pain or palpitations GI: Denies abdominal pain nausea, emesis or diarrhea reports cloudy urine Musculoskeletal: Denies back pain or muscle pain Neuro: Denies numbness, tingling, weakness or focal weakness Skin: Denies rash Except as documented, all other systems reviewed and negative <Betsy Thomason PA-C - Last Filed: 12/04/22 01:36> [facility] Past Medical History Medical History: Medical History Atrial fibrillation Chronic obstructive pulmonary disease Chronic respiratory failure with hypoxia, on home oxygen therapy Depression with anxiety Follicular lymphoma Hypertension Hypothyroidism Interstitial lung disease Obstructive sleep apnea on CPAP <Betsy Thomason PA-C - Last Filed: 12/04/22 01:36> Surgical History Surgical History: Surgical History History of arthroscopy of right shoulder History of bilateral cataract extraction <Betsy Thomason PA-C - Last Filed: 12/04/22 01:36> Family History Family History: Family History Sibling Family history of cardiovascular disease Mother Family history of primary malignant neoplasm of liver, Onset Age: 83 <Betsy Thomason PA-C - Last Filed: 12/04/22 01:36> Social History Social History: Social History Social History: Surrogate medical decision maker: Tyrone Newton, spouse. Code status: Full code. Smoking status: Never smoker Second hand tobacco smoke exposure: Yes (As a child and young
[2022-12-03 20:56] LABS: Appearance Urine Turbid (Clear); Bacteria Urine 2+ /hpf; Bilirubin Urine Negative (Negative); Blood Urine 3+ (Negative); Color Urine Dark Yellow (Yellow); Glucose Urine UA Negative (Negative); Ketones Urine Negative (Negative); Leukocyte Esterase Ur 3+ LEU/UL (Negative); Need Manual Microscopic Reviewed; Nitrate Urine Negative (Negative); Protein Urine 2+ mg/dL (Negative); RBC Urine 51-100 /hpf (0-2); Specific Grav Ur 1.017 (1.001-1.035); Squamous Epithelial Cell Urine Few /hpf (Few); WBC Urine >100 /hpf; pH Urine 5.5 (5.0-9.0)
[2022-12-03 20:58] LABS: Add Urine Microscopic? YES
[2022-12-03] MEDS: POTASSIUM CHLORIDE 20 MEQ TABLET 40 MEQ PO (22:03)
[2022-12-03] MEDS: SODIUM CHLORIDE 0.9% IV 1,000 ML 999 ML IV CONT (22:20)
[2022-12-03] MEDS: MORPHINE SULFATE (*CRX) 4 MG/ML INJ IV PUSH (22:21)
[2022-12-04] VITALS (11 sets, daily range): BP systolic 106–144; BP diastolic 52–76; PULSE 73–91; RESP 16–20; TEMP 36.1–37; O2SAT 91–100
--- NOTE | 2022-12-04 00:06 | ADMGEN ---
This patient, Rhoda Newton, was admitted to 3 [facility] Surg Room 311-01. Patient/family oriented to hospital policies and general routines including ID bracelet, bed and alarms, visiting hours, pain management, procedures, bathroom and other care routines, personal items, smoking policy, room service/diet, and visiting hours. Information on how to activate the Rapid Response Team has been discussed. Patient/Family are encouraged to report perceived risks to care and to ask questions if they do not understand what they are told or what they should do.
[2022-12-04] MEDS: SODIUM CHLORIDE 0.9% IV 1,000 ML 100 ML IV CONT (00:24)
--- NOTE | 2022-12-04 04:04 | PM.IMHP ---
H&P: HPI History of Present Illness Date/Time: 12/04/22 02:30 Chief Complaint: Possible bladder infection Narrative: 77-year-old female with a past medical history of morbid obesity, obstructive sleep apnea, follicular lymphoma, COPD with interstitial lung disease, atrial fibrillation with chronic anticoagulation and essential hypertension who presented to the ER because she was concerned she had a UTI. The patient reports that approximately a week ago she noticed that her urine was darker than usual and she was feeling a bit more fatigued and decreased appetite. She reports that she drinks a lot of water and did not have a reason for urine to be darker. However about 5 days ago she began having increased urinary urgency and frequency. Then 4 days ago she began having achy right-sided flank pain with no eliciting or relieving factors. Then the following days she began having some intermittent nausea with some dry heaves and increased urinary urgency to the point that she was having some episodes of urinary incontinence. She denies having any dysuria. She was having intermittent chills in feeling flushed. She did check her temperature with a scanning thermometer at home and was afebrile. She does have chronic dyspnea on exertion but is unchanged from baseline. She denies any orthopnea or paroxysmal nocturnal dyspnea. She does have a obstructive sleep apnea and is compliant with her CPAP with bleed in oxygen. She does have history of chronic hypoxic respiratory failure and does use oxygen if she gets up and exerts herself to any significant extent. She has p.r.n. oxygen of 2 L at home. She reports that recently she had the upper respiratory tract infection but is still having some residual postnasal drip and sore throat but her symptoms for the most part have resolved. She has had decreased amount of stool output but states that she relates this to her decreased appetite. She denies any lower extremity swelling. In the ER CT was performed which demonstrated an obstructing right ureteral stone with obstructive uropathy. She also had some mild hypokalemia. She denies any known history of prior kidney stones. Review of Systems Review of Systems: 12 systems were reviewed with pertinent positives and negatives per HPI. Except as documented in the HPI, all other systems were reviewed and are negative. [facility] Past Medical History Medical History (Updated 12/04/22 @ 04:45 by Carol Taylor DO) Atrial fibrillation Chronic anticoagulation Chronic obstructive pulmonary disease Chronic respiratory failure with hypoxia, on home oxygen therapy Congestive heart failure Echocardiogram August 2019: EF 55-60, moderate pulmonary hypertension with RVSP of 61 biatrial enlargement right greater than left, findings unchanged compared to 2017 Depression Depression with anxiety Follicular lymphoma Hearing loss, bilateral Hypertension Hypothyroidism Interstitial lung disease Morbid (severe) obesity due to excess calories Obstructive sleep apnea on CPAP CPAP of 9 with 2 L bleed in oxygen with last polysomnogram April 2021 Paralysis of left vocal cord Peripheral neuropathy Pre-diabetes Patient's A1c has not been above 6 ever Pulmonary hypertension Moderate pulmonary hypertension noted on echocardiogram 2020 with RVSP of 61 TMJ (temporomandibular joint disorder) Vertigo Surgical History Surgical History History of arthroscopy of right shoulder History of bilateral cataract extraction Family History Family History Sibling Family history of cardiovascular disease Mother Family history of primary malignant neoplasm of liver, Onset Age: 83 Social History Social History Social History: Surrogate medical decision maker: Tyrone Newton, spouse. Code status: Full code. S
[2022-12-04] MEDS: LEVOTHYROXINE SODIUM 50 MCG TABLET PO (06:29)
--- NOTE | 2022-12-04 06:38 | PC.NURSE ---
Pt.was week and became short of breath when walking to the restroom. I put a bedside commode in the room to use.
[2022-12-04 09:52] LABS: Hematocrit 32.6 % (37.0-47.0); Hemoglobin 10.8 g/dL (12.0-15.0); Mean Corpuscular HGB Conc 33.1 g/dl (32-36); Mean Corpuscular Hemoglobin 32.4 pg (26-34); Mean Corpuscular Volume 97.9 fl (80-100); Mean Platelet Volume 9.8 fl (7.4-10.4); Platelet Count Result 140 k/mm3 (150-375); Red Blood Count 3.33 M/mm3 (4.2-5.4); Red Cell Distribution Width 13.5 % (11.5-14.5); White Blood Count 11.7 K/mm3 (4.5-10.0)
[2022-12-04 10:07] LABS: Anion Gap 4 mmol/L (8-16); Blood Urea Nitrogen 16 mg/dL (7-17); Carbon Dioxide 29 mmol/L (22-30); Chloride 104 mmol/L (98-107); Estimated CRCL calculation 52 ml/min; Estimated Glomerular Filt Rate > 60; Glucose 157 mg/dL (65-110); INR 1.9; Partial Thromboplastin Time 34.2 SECONDS (22.3-36.8); Potassium 3.4 mmol/L (3.4-5.0); Prothrombin Time 20.8 Seconds (11.1-14.7); Sodium 137 mmol/L (137-145)
--- NOTE | 2022-12-04 10:13 | WPDURCON ---
Assessment and Plan Assessment and plan (1) Ureteral stone: Code(s): N20.1 - Calculus of ureter Status: Acute Assessment and Plan: Given patient's report of subjective fevers and chills I have recommended cystoscopy and right ureteral stent placement. She understands she will require ureteroscopy and laser lithotripsy and stent removal at delayed interval to treat her stone definitively. She would like this done at [facility] with Dr. Duncan who takes care of her , I will work to arrange this. To OR today for cystoscopy and right ureteral stent placement. Discussed risks including sepsis, hematuria, injury to urethra/bladder/ureter/kidney, postop stent pain, need for Rivera, anesthetic complication. She would like to proceed. Agree with ceftriaxone for ppx. Cultures pending. (2) Urinary tract infection: Code(s): N39.0 - Urinary tract infection, site not specified Status: Acute Urology Consult Note HPI Date Seen: 12/04/22 Requesting Physician: Carol Taylor DO Primary Care Provider: Smith Roberts MD Consult Narrative Narrative: Rhoda Newton is a 77 year old female who reports she started having pain several days ago that progressively worsened associated with nausea and vomiting. She reports subjective fevers and chills. She also reports some hematuric urine for the past day or so. She presented to the ER and was found to have an 8x4 mm proximal ureteral stone (actually appears to be 2 stones). She elects for cystoscopy and ureteral stent placement. She is on eliquis. Review of Systems Review of Systems: All systems reviewed & are unremarkable except as noted in HPI and below Eyes: Eyes: Reports no additional eye complaints ENT: Reports system reviewed and no additional complaints, except as documented Cardiovascular: Cardiovascular: Reports no additional cardiovascular complaints Respiratory: Respiratory: Reports no additional respiratory complaints Gastrointestinal: Gastrointestinal: Reports no additional gastrointestinal complaints Genitourinary: Genitourinary: Reports hematuria, Denies urinary frequency, Denies nocturia, Reports flank pain, Denies urinary incontinence, Denies urinary hesitancy and Denies urinary urgency Musculoskeletal: Musculoskeletal: Reports no additional musculoskeletal complaints Integumentary/Breasts: Skin/Breast: Reports system reviewed and no additional complaints, except as docu Neurologic: Reports system reviewed and no additional complaints, except as documented Psychiatric: Psychiatric: Reports no additional psychiatric complaints PMFSH Past Medical History Medical History Atrial fibrillation Chronic anticoagulation Chronic obstructive pulmonary disease Chronic respiratory failure with hypoxia, on home oxygen therapy Congestive heart failure Echocardiogram August 2019: EF 55-60, moderate pulmonary hypertension with RVSP of 61 biatrial enlargement right greater than left, findings unchanged compared to 2017 Depression Depression with anxiety Follicular lymphoma Hearing loss, bilateral Hypertension Hypothyroidism Interstitial lung disease Morbid (severe) obesity due to excess calories Obstructive sleep apnea on CPAP CPAP of 9 with 2 L bleed in oxygen with last polysomnogram April 2021 Paralysis of left vocal cord Peripheral neuropathy Pre-diabetes Patient's A1c has not been above 6 ever Pulmonary hypertension Moderate pulmonary hypertension noted on echocardiogram 2020 with RVSP of 61 TMJ (temporomandibular joint disorder) Vertigo Surgical History Surgical History History of arthroscopy of right shoulder History of bilateral cataract extraction Family History Family History Sibling Family history of cardiovascular disease Mother Family history
--- NOTE | 2022-12-04 10:20 | WPDHPUPDATE1 ---
History and Physical Update Update Date/Time: 12/04/22 10:20 History and Physical has been reviewed, including an updated exam of the patient. There are NO changes in the patient's condition. Risks, benefits, and alternatives have been discussed and questions answered. Patient agrees to proceed with procedure.
--- NOTE | 2022-12-04 10:55 | WPDANESEPPF ---
Anes - Initial Pre Proc Eval Procedure: Operation Date: 12/04/22 11:00 Proposed Procedures p Cysto, RPG, Stone Ext, Stent Placement - Jabier Cintron MD Date/Time: 12/04/22 10:55 Surgeon: Carol Taylor DO Pre Op Diagnosis: infected kidney stone Patient Data Age: 77 Gender: F Height: 1.6 m Weight: 101.9 kg Last Vital Signs Temp 36.7 C 12/04/22 05:23 Pulse 79 12/04/22 09:29 Resp 16 12/04/22 05:23 BP 144/66 H 12/04/22 05:23 Pulse Ox 95 12/04/22 05:23 O2 Del Method Room Air 12/03/22 17:50 Allergies Allergy/AdvReac Type Severity Reaction Status Date / Time No Known Allergies Allergy Verified 12/03/22 22:31 Home Medications Medication Instructions Recorded Confirmed Type atorvastatin 40 mg tablet 40 mg PO DAILY 02/03/20 12/04/22 History metoprolol tartrate 50 mg tablet 25 mg PO BID 02/03/20 12/04/22 History apixaban 5 mg tablet (Eliquis) 5 mg PO BID 07/28/20 12/04/22 History multivitamin (Daily Multi-Vitamin 1 tablet PO DAILY 12/04/20 12/04/22 History tablet) furosemide 40 mg tablet 40 mg PO DAILY 12/14/21 12/04/22 History albuterol sulfate 90 mcg/actuation 2 inh inhalation Q6H PRN shortness 06/05/22 12/03/22 Rx breath activated powder inhaler of breath #1 ea raloxifene 60 mg tablet (Evista) 60 mg PO DAILY #30 tabs 08/25/22 12/04/22 Rx furosemide 20 mg tablet See Rx Instructions .Route 11/17/22 12/04/22 Rx .COMPLEX #90 tabs amlodipine 5 mg tablet 5 mg PO DAILY 12/03/22 12/03/22 History doxazosin 4 mg tablet 4 mg PO QPM 12/04/22 12/04/22 History levothyroxine 50 mcg tablet 50 mcg PO DAILY 12/04/22 12/04/22 History losartan 100 mg tablet 100 mg PO DAILY 12/04/22 12/04/22 History sertraline 100 mg tablet 100 mg PO DAILY 12/04/22 12/04/22 History Laboratory Tests 12/03/22 12/03/22 12/03/22 18:04 18:04 20:38 WBC 9.7 K/mm3 K/mm3 (4.5-10.0) RBC 3.61 M/mm3 L M/mm3 (4.2-5.4) Hgb 11.6 g/dL L g/dL (12.0-15.0) Hct 35.5 % L % (37.0-47.0) MCV 98.3 fl fl (80-100) MCH 32.1 pg pg (26-34) MCHC 32.7 g/dl g/dl (32-36) RDW 13.3 % % (11.5-14.5) Plt Count 148 k/mm3 L k/mm3 (150-375) MPV 10.0 fl fl (7.4-10.4) Immature Gran % (Auto) 0.5 % % (0-0.5) Neut % (Auto) 67.9 % % (45.5-73.1) Lymph % (Auto) 21.7 % % (18.3-44.2) [place] % (Auto) 9.3 % H % (2.6-8.5) Eos % (Auto) 0.3 % % (0-4.4) Baso % (Auto) 0.3 % % (0.2-1.2) Lymph # (Auto) 2.10 K/mm3 K/mm3 (0.9-3.2) [place] # (Auto) 0.9 K/mm3 H K/mm3 (0.1-0.6) Eos # (Auto) 0.0 K/mm3 K/mm3 (0-0.3) Baso # (Auto) 0.0 K/mm3 K/mm3 (0.0-0.1) Abs Immat Gran (auto) 0.05 K/mm3 H K/mm3 (0.00-0.031) Absolute Neuts (auto) 6.6 K/mm3 K/mm3 (1.3-6.7) Absolute Nucleated RBC 0.0 K/mm3 K/mm3 (0.0-0.012) Nucleated RBC % 0.0 % % (0.0-0.2) PT INR APTT Sodium 132 mmol/L L mmol/L (137-145) Potassium 3.1 mmol/L L mmol/L (3.4-5.0) Chloride 100 mmol/L mmol/L (98-107) Carbon Dioxide 27 mmol/L mmol/L (22-30) Anion Gap 5 mmol/L L mmol/L (8-16) BUN 16 mg/dL mg/dL (7-17) Creatinine 1.00 mg/dL mg/dL (0.7-1.0) Estim Creat Clear Calc 47 ml/min ml/min Estimated GFR 54 L (59 - ) Glucose 146 mg/dL H mg/dL (65-110) Calcium 8.0 mg/dL L mg/dL (8.4-10.2) Total Bilirubin 1.0 mg/dL mg/dL (0.2-1.3) AST 22 U/L U/L (14-36) ALT 17 U/L U/L (6-35) Alkaline Phosphatase 53 U/L U/L (38-126) Total Protein 7.0 g/dL g/dL (6.3-8.2) Albumin 3.8 g/dL g/dL (3.5-5.1) Urine Color Dark yellow (Yellow) Urine Appearance Turbid H (Clear) Urine pH 5.5 (5.0-9.0
--- NOTE | 2022-12-04 11:24 | W.PM.PROC2 ---
Procedure Note - Detailed Date of Procedure 12/04/22 Pre-op Diagnosis Right ureteral stones Post-op Diagnosis Same Procedure Performed 1. Cystoscpopy and right ureteral stent placement 2. Right retrograde pyelogram 3. Fluoroscopy with interpretation of images, less than 1 hour. Surgeon Jabier Cintron MD Anesthesia General Indications 77F who presented with right flank pain, on eliquis and was found to have a proximal ureteral stone on the right. She reports several days of nausea and vomiting. Findings 1. Blood pressures were soft intraoperatively, concern for developing sepsis, stent placed and patient awoken from anesthesia having suffered no apparent complication. 2. Appropriate placement of ureteral stent, hydronephrotic drip, purulent vs. flocculent urine draining. Description of Procedure After a discussion of benefits, risks and alternatives the patient offered informed written consent and was brought to the operating room. Anesthesia was induced and she was transferred to the dorsal lithotomy position. She was prepped and draped and the cystoscope was placed without incident. Cystoscopy revealed erythema throughout the bladder suggestive of infection. Bladder biopsy was not performed due to report of hypotension on induction and Eliquis use. The right ureteral orifice was approached and a glide wire advanced through the orifice to the renal pelvis, a gentle retrograde was performed to delineate the renal pelvis. The wire was replaced and the stent advanced over the wire. The stent position was confirmed in the upper pole calyx fluoroscopically and under direct vision in the bladder. The cystoscope was removed and a 16F Rivera was placed. She was awoken from anesthesia having suffered no apparent complication. Estimated Blood Loss 2 Urine Output 0 Drains Yes (6F variable length right ureteral stent) Pathology None sent Complications No immediate complications Condition Stable
[2022-12-04] MEDS: LACTATED RINGERS 1,000 ML 30 ML IV CONT (11:28)
--- NOTE | 2022-12-04 12:44 | SUR.PHASEI ---
PATIENT STABLE AND READY FOR RETURN TO INPATIENT ROOM. AWAITING TRANSPORT FROM THE FLOOR. FLOOR NOTIFIED AT 1218 AND 1234.
[2022-12-04] MEDS: LOSARTAN POTASSIUM 100 MG TABLET PO (13:23)
[2022-12-04] MEDS: ATORVASTATIN 40 MG TABLET PO (13:23)
[2022-12-04] MEDS: MULTIVITAMINS THERAPEUTIC TAB (*BKC) 1 TABLET PO (13:23)
[2022-12-04] MEDS: METOPROLOL TARTRATE 25 MG TABLET PO ×2 (13:23→20:53)
[2022-12-04] MEDS: SERTRALINE HCL 50 MG TABLET 100 MG PO (13:24)
--- NOTE | 2022-12-04 15:21 | PM.IMPN ---
Progress Note: A&P Assessment and Plan (1) Urinary tract infection: Code(s): N39.0 - Urinary tract infection, site not specified Status: Acute Assessment and Plan: UA with 3+ blood, 3+ leukocyte esterase, >100 WBC, and 2+ bacteria concerning for infection. Patient was febrile and CT scan shows bilateral perinephric stranding indicating acute pyelonephritis. Continue IV Rocephin 1 gram Q24 hours Urine culture pending. Adjust antibiotics per culture results. (2) Hydronephrosis with renal calculous obstruction: Code(s): N13.2 - Hydronephrosis with renal and ureteral calculous obstruction Status: Acute Assessment and Plan: CT scan with 4x8 mm proximal right ureteral stone causing moderate obstructive uropathy. Urology consulted. s/p Cystoscpopy and right ureteral stent placement, right retrograde pyelogram, and fluoroscopy with interpretation of images, less than 1 hour Rivera catheter placed and continued. continue analgesics as needed. (3) Chronic anticoagulation: Code(s): Z79.01 - termite inspector (current) use of anticoagulants Status: Chronic Assessment and Plan: H/O chronic afib. Eliquis on hold for procedure. (4) ROQUE (obstructive sleep apnea): Code(s): G47.33 - Obstructive sleep apnea (adult) (pediatric) Status: Chronic Assessment and Plan: CPAP at bedtime and daytime naps. (5) Chronic obstructive pulmonary disease: Code(s): J44.9 - Chronic obstructive pulmonary disease, unspecified Status: Chronic Assessment and Plan: Not in acute exacerbation. PRN albuterol for SOB or wheezing. (6) Chronic respiratory failure with hypoxia, on home oxygen therapy: Code(s): J96.11 - Chronic respiratory failure with hypoxia; Z99.81 - Dependence on supplemental oxygen Status: Chronic Assessment and Plan: chronic, patient uses 2L O2 intermittently as needed at home. (7) Hypertension: Qualifiers: Hypertension type: essential hypertension Qualified Code(s): I10 - Essential (primary) hypertension Code(s): I10 - Essential (primary) hypertension Status: Chronic Assessment and Plan: Continue losartan, amlodipine, and metoprolol at home doses as BP tolerates. Monitor vitals. BP 106/52-113/76 Plan CODE STATUS: DNR Discharge disposition: patient is from home. Antibiotic: day 2 Time Spent With Patient Time with patient: 15 - 25 minutes Subjective Date/time seen: 12/04/22 15:21 She reports feeling a little better this afternoon after her procedure. Rivera catheter was placed and continued by Urology. She had chills and sweating this morning but not now. No chest pain, SOB, abdominal pain, N/V or flank pain. Review of Systems Review of Systems: All systems reviewed & are unremarkable except as noted in HPI and below Exam Narrative: General: No acute distress.? Older adult female sitting up in the bed. Nontoxic appearing. Mental Status/Psych: Awake, alert and oriented x4 with clear speech. Pleasant and cooperative. Skin: Skin fair, warm, dry and intact without rashes or lesions. Fair turgor.? HEENT: Normocephalic. Sclera is non-icteric. Pupils equal and round. Oral mucosa pink and moist. Neck: No JVD. Heart: Irregularly irregular rate and rhythm. No murmurs, gallops, or rubs auscultated. Chest: Respirations even and unlabored. Lung sounds are clear to auscultation without wheezes, rhonchi, or rales. Abdomen: Soft, obese and non-tender to palpation.? Bowel sounds present in all 4 quadrants. No guarding, suprapubic or CVA tenderness. Rivera: clear, yellow urine. Extremities:? No edema, erythema or calf tenderness. Grossly normal ROM. Radial and dorsalis pedis pulses +2 bilaterally. Neurological: No focal deficits. Cranial nerves 2-12 grossly intact. Objective Data Vital Signs Vital Signs: Vital Signs - 24 hr 12/03/22 17:50 12/03/22 20:43 12/03/22
[2022-12-04] MEDS: DOXAZOSIN MESYLATE 4 MG TABLET PO (17:40)
[2022-12-04] MEDS: APIXABAN 5 MG TABLET PO (20:53)
[2022-12-05] VITALS (12 sets, daily range): BP systolic 104–140; BP diastolic 44–83; PULSE 53–90; RESP 16–22; TEMP 36.2–36.8; O2SAT 92–98
[2022-12-05] MEDS: LEVOTHYROXINE SODIUM 50 MCG TABLET PO (05:21)
[2022-12-05 06:26] LABS: Basophils Percent Auto 0.3 % (0.2-1.2); Eosinophils Absolute Auto 0.1 K/mm3 (0-0.3); Hematocrit 32.7 % (37.0-47.0); Hemoglobin 10.7 g/dL (12.0-15.0); Immature Granulocyte Absolute 0.04 K/mm3 (0.00-0.031); Immature Granulocyte Percent A 0.4 % (0-0.5); Lymphocytes Absolute Auto 2.02 K/mm3 (0.9-3.2); Lymphocytes Percent Auto 21.7 % (18.3-44.2); Mean Corpuscular HGB Conc 32.7 g/dl (32-36); Mean Corpuscular Hemoglobin 32.7 pg (26-34); Mean Platelet Volume 10.1 fl (7.4-10.4); Monocytes Absolute Auto 0.9 K/mm3 (0.1-0.6); Monocytes Percent Auto 9.4 % (2.6-8.5); Neutrophils Absolute Auto 6.3 K/mm3 (1.3-6.7); Neutrophils Percent Auto 67.2 % (45.5-73.1); Platelet Count Result 141 k/mm3 (150-375); Red Blood Count 3.27 M/mm3 (4.2-5.4); Red Cell Distribution Width 13.6 % (11.5-14.5); White Blood Count 9.3 K/mm3 (4.5-10.0)
[2022-12-05 06:39] LABS: Anion Gap 5 mmol/L (8-16); Blood Urea Nitrogen 21 mg/dL (7-17); Calcium 7.8 mg/dL (8.4-10.2); Carbon Dioxide 26 mmol/L (22-30); Chloride 104 mmol/L (98-107); Estimated CRCL calculation 52 ml/min; Estimated Glomerular Filt Rate > 60; Glucose 116 mg/dL (65-110); Potassium 3.3 mmol/L (3.4-5.0); Sodium 135 mmol/L (137-145)
[2022-12-05 08:41] LABS: Hemoglobin A1C 5.7 % (<5.7)
[2022-12-05 08:49] LABS: Magnesium 2.3 mg/dL (1.6-2.3)
[2022-12-05] MEDS: SERTRALINE HCL 50 MG TABLET 100 MG PO (09:53)
[2022-12-05] MEDS: ATORVASTATIN 40 MG TABLET PO (09:53)
[2022-12-05] MEDS: MULTIVITAMINS THERAPEUTIC TAB (*BKC) 1 TABLET PO (09:53)
[2022-12-05] MEDS: POTASSIUM CHLORIDE 20 MEQ TABLET 40 MEQ PO (09:53)
[2022-12-05] MEDS: APIXABAN 5 MG TABLET PO ×2 (09:54→20:02)
[2022-12-05] MEDS: METOPROLOL TARTRATE 25 MG TABLET PO ×2 (09:54→20:02)
[2022-12-05] MEDS: amLODIPine BESYLATE 5 MG TABLET PO (09:55)
[2022-12-05] MEDS: LOSARTAN POTASSIUM 100 MG TABLET PO (09:55)
--- NOTE | 2022-12-05 13:19 | P.PNAN_ITS ---
Anes - Prog Note Post-Op Date/Time: 12/05/22 13:19 Cardiovascular status: normal Respiratory status: normal Airway patency: baseline Mental status: baseline Post-Op hydration status: normal Vital Signs: Last Vital Signs Temp 36.8 C 12/05/22 05:53 Pulse 84 12/05/22 09:54 Resp 16 12/05/22 08:49 BP 140/61 12/05/22 05:53 Pulse Ox 93 12/05/22 08:49 O2 Del Method Room Air 12/05/22 10:02 O2 Flow Rate 1 12/04/22 12:25 FiO2 21 12/05/22 08:49 Pain Score (VAS): 2 I/O: Intake & Output 12/04/22 12/05/22 12/05/22 23:59 07:59 15:59 Intake Total 490 100 358 Output Total 400 Balance 490 -300 358 Laboratory Tests 12/05/22 06:15 12/05/22 06:15 12/05/22 12/05/22 12/05/22 06:11 06:11 06:15 WBC 9.3 RBC 3.27 L Hgb 10.7 L Hct 32.7 L MCV 100.0 MCH 32.7 MCHC 32.7 RDW 13.6 Plt Count 141 L MPV 10.1 Immature Gran % (Auto) 0.4 Neut % (Auto) 67.2 Lymph % (Auto) 21.7 [place] % (Auto) 9.4 H Eos % (Auto) 1.0 Baso % (Auto) 0.3 Lymph # (Auto) 2.02 [place] # (Auto) 0.9 H Eos # (Auto) 0.1 Baso # (Auto) 0.0 Abs Immat Gran (auto) 0.04 H Absolute Neuts (auto) 6.3 Absolute Nucleated RBC 0.0 Nucleated RBC % 0.0 Sodium Potassium Chloride Carbon Dioxide Anion Gap BUN Creatinine Estim Creat Clear Calc Estimated GFR Glucose Hemoglobin A1c 5.7 Calcium Magnesium 2.3 12/05/22 06:15 WBC RBC Hgb Hct MCV MCH MCHC RDW Plt Count MPV Immature Gran % (Auto) Neut % (Auto) Lymph % (Auto) [place] % (Auto) Eos % (Auto) Baso % (Auto) Lymph # (Auto) [place] # (Auto) Eos # (Auto) Baso # (Auto) Abs Immat Gran (auto) Absolute Neuts (auto) Absolute Nucleated RBC Nucleated RBC % Sodium 135 L Potassium 3.3 L Chloride 104 Carbon Dioxide 26 Anion Gap 5 L BUN 21 H Creatinine 0.90 Estim Creat Clear Calc 52 Estimated GFR > 60 Glucose 116 H Hemoglobin A1c Calcium 7.8 L Magnesium Microbiology 12/03/22 20:38 Urine Clean Catch Urine Culture - Preliminary Escherichia Coli Post-procedural complaints: none Patient Feedback: Patient satisfied with anesthetic care.
--- NOTE | 2022-12-05 15:22 | WPDUROPN2 ---
Progress Note: A&P Assessment and Plan (1) Ureteral stone: Code(s): N20.1 - Calculus of ureter Status: Acute Assessment and Plan: Follow up in 1-2 weeks in the office to repeat a urine culture then discuss stone management. (2) Urinary tract infection: Code(s): N39.0 - Urinary tract infection, site not specified Status: Acute Assessment and Plan: Ok to remove shah and do a voiding trial. Continue culture appropriate antibiotics s/p discharge. Can discharge per urology when appropriate. Subjective Subjective Date/Time Seen: 12/05/22 15:22 POD #1 1. Cystoscpopy and right ureteral stent placement 2. Right retrograde pyelogram 3. Fluoroscopy with interpretation of images, less than 1 hour. The patient states her pain is resolved today. She is doing much better and she has clear/pink urine. Her culture grew E-Coli. Post Op day: 1 Review of Systems Respiratory: Respiratory: Reports no additional respiratory complaints Gastrointestinal: Gastrointestinal: Denies abdominal pain, Denies nausea and Denies vomiting Genitourinary: Genitourinary: Reports no additional female genitourinary complaints Exam Const: General: comfortable Resp: Effort & Inspection: normal respiratory effort Cardio: Rate: regular rate GI: GI Palp: Yes Soft to palpation and No Tenderness to palpation present (GI) : General: Yes no CVA tenderness Extrem: Right lower extremity: no edema Left lower extremity: no edema Objective Data Vital Signs Vital Signs: Vital Signs - 24 hr 12/04/22 20:53 12/04/22 21:10 12/04/22 22:00 Temperature 98.6 F Pulse Rate 83 83 80 Respiratory Rate 16 Blood Pressure 138/75 Pulse Oximetry 91 98 Oxygen Delivery CPAP Fraction of Inspired Oxygen 12/05/22 05:32 12/05/22 05:53 12/05/22 08:49 Temperature 98.3 F Pulse Rate 78 78 53 L Respiratory Rate 18 16 Blood Pressure 140/61 Pulse Oximetry 97 98 93 Oxygen Delivery CPAP Room Air Fraction of Inspired Oxygen 12/05/22 09:54 12/05/22 10:02 12/05/22 14:00 Temperature 97.2 F L Pulse Rate 84 78 Respiratory Rate 20 Blood Pressure 123/79 Pulse Oximetry 95 Oxygen Delivery Room Air Fraction of Inspired Oxygen Intake/Output Intake/Output: Intake & Output 04/2112/03/22 12/04/22 12/05/22 23:59 23:59 23:59 23:59 Intake Total 50 403 558 Output Total 50 400 Balance 50 952 298 Meds/Results Medications: Active Medications Generic Name Dose Route Start Last Admin Trade Name Freq PRN Reason Stop Dose Admin Acetaminophen 650 mg 12/03/22 22:02 Acetaminophen 325 Mg Tablet PO Q4H PRN Mild Pain (1-3) or Fever Amlodipine Besylate 5 mg 12/04/22 09:00 12/05/22 09:55 Amlodipine Besylate 5 Mg Tablet PO 5 mg DAILY ROBIN Administration Apixaban 5 mg 12/04/22 21:00 12/05/22 09:54 Apixaban 5 Mg Tablet PO 5 mg Q12HR ROBIN Administration Atorvastatin Calcium 40 mg 12/04/22 09:00 12/05/22 09:53 Atorvastatin 40 Mg Tablet PO 40 mg DAILY ROBIN Administration Doxazosin Mesylate 4 mg 12/04/22 18:00 12/04/22 17:40 Doxazosin Mesylate 4 Mg Tablet PO 4 mg QPM ROBIN Administration Ceftriaxone Sodium 1 gm in 50 mls @ 100 mls/hr 12/04/22 21:00 12/04/22 21:23 Rocephin 1 Gm/Ns 50 Ml IVPB Infused Q24H ROBIN Infusion Levothyroxine Sodium 50 mcg 12/04/22 06:30 12/05/22 05:21 Levothyroxine Sodium 50 Mcg Tablet PO 50 mcg DAILY@0630 ROBIN Administration Losartan Potassium 100 mg 12/04/22 09:00 12/05/22 09:55 Losartan Potassium 100 Mg Tablet PO 100 mg DAILY ROBIN Administration Metoprolol Tartrate 25 mg 12/04/22 09:00 12/05/22 09:54 Metoprolol Tartrate 25 Mg Tablet PO 25 mg Q12HR ROBIN Administration Morphine Sulfate 2 mg 12/03/22 22:02 Morphine Sulfate (*Crx) 2 Mg/Ml Inj IV PUSH Q4H PRN Pain Rated 7-10 Multivitamins Therapeutic 1 tablet 12/04/22 09:00 12/05/22 09:53 Mult
--- NOTE | 2022-12-05 16:02 | PM.DS ---
DS: Admitting Diagnosis Discharge Date 12/06/2022 Admitting Diagnosis Urinary tract infection, site not specified Hydronephrosis with renal and ureteral calculous obstruction DS: Discharge Diagnosis Discharge Diagnosis (1) Urinary tract infection: Qualifiers: Urinary tract infection type: acute pyelonephritis Qualified Code(s): N10 - Acute pyelonephritis Code(s): N39.0 - Urinary tract infection, site not specified Status: Acute Assessment and Plan: UA with 3+ blood, 3+ leukocyte esterase, >100 WBC, and 2+ bacteria concerning for infection. Patient was afebrile and CT scan shows bilateral perinephric stranding indicating acute pyelonephritis. Continue IV Rocephin 1 gram Q24 hours 12/03-12/05, transitioned to oral cefdinir 300 mg PO BID to complete 7-day course. Urine culture pansensitive E.coli. (2) Hydronephrosis with renal calculous obstruction: Code(s): N13.2 - Hydronephrosis with renal and ureteral calculous obstruction Status: Acute Assessment and Plan: CT scan with 4x8 mm proximal right ureteral stone causing moderate obstructive uropathy. Urology consulted. s/p Cystoscopy and right ureteral stent placement, right retrograde pyelogram, and fluoroscopy with interpretation of images, less than 1 hour on 12/04 Rivera catheter placed and managed per Urology. Rivera removed 12/05/22 and patient able to urinate on her own. continued analgesics as needed. Follow up with urology in 1 week post discharge. (3) Chronic anticoagulation: Code(s): Z79.01 - FPC (current) use of anticoagulants Status: Chronic Assessment and Plan: H/O chronic afib. Eliquis on hold for procedure. Resume upon discharge 12/06/22 (4) ROQUE (obstructive sleep apnea): Code(s): G47.33 - Obstructive sleep apnea (adult) (pediatric) Status: Chronic Assessment and Plan: CPAP at bedtime and daytime naps. Stable. (5) Chronic obstructive pulmonary disease: Qualifiers: COPD type: unspecified COPD Qualified Code(s): J44.9 - Chronic obstructive pulmonary disease, unspecified Code(s): J44.9 - Chronic obstructive pulmonary disease, unspecified Status: Chronic Assessment and Plan: Not in acute exacerbation. PRN albuterol for SOB or wheezing. (6) Chronic respiratory failure with hypoxia, on home oxygen therapy: Code(s): J96.11 - Chronic respiratory failure with hypoxia; Z99.81 - Dependence on supplemental oxygen Status: Chronic Assessment and Plan: chronic, patient uses 2L O2 intermittently as needed at home. No respiratory complaints or increased O2 needs. (7) Hypertension: Qualifiers: Hypertension type: essential hypertension Qualified Code(s): I10 - Essential (primary) hypertension Code(s): I10 - Essential (primary) hypertension Status: Chronic Assessment and Plan: Continue losartan, amlodipine, and metoprolol at home doses as BP tolerates. Monitor vitals. BP 106/52-113/76 12/05/22 c/o dizziness. slight decrease sitting to standing (SBP 130 to 114) but not >20 mmHg drop. HR not significantly increased. Likely medication induced. Resolved 12/06 DS: Summary Hospital Course Reason for hospitalization: concern for UTI Hospital Course: Patient is a 77-year-old female with morbid obesity, obstructive sleep apnea, follicular lymphoma, COPD with interstitial lung disease, atrial fibrillation with chronic anticoagulation use and essential hypertension, who presented to the ER for concerns of UTI.? The patient reported that approximately one week prior to admission she noticed that her urine was darker than usual and she was feeling a bit more fatigued with decreased appetite.? She drinks a lot of water and did not have a reason for urine to be darker.? A few days later, 5 days prior to presentation, she began having increased urinary urgency and frequency.? She then dev
--- NOTE | 2022-12-05 16:53 | PM.IMPN ---
Progress Note: A&P Assessment and Plan (1) Urinary tract infection: Code(s): N39.0 - Urinary tract infection, site not specified Status: Acute Assessment and Plan: UA with 3+ blood, 3+ leukocyte esterase, >100 WBC, and 2+ bacteria concerning for infection. Patient was febrile and CT scan shows bilateral perinephric stranding indicating acute pyelonephritis. Continue IV Rocephin 1 gram Q24 hours, started 12/03 Urine culture pending. Adjust antibiotics per culture results. (2) Hydronephrosis with renal calculous obstruction: Code(s): N13.2 - Hydronephrosis with renal and ureteral calculous obstruction Status: Acute Assessment and Plan: CT scan with 4x8 mm proximal right ureteral stone causing moderate obstructive uropathy. Urology consulted. s/p Cystoscpopy and right ureteral stent placement, right retrograde pyelogram, and fluoroscopy with interpretation of images, less than 1 hour Rivera catheter placed for procedure and continued per urology. DC'd this afternoon. Check PVR x1. continue analgesics as needed. (3) Chronic anticoagulation: Code(s): Z79.01 - MCC (current) use of anticoagulants Status: Chronic Assessment and Plan: H/O chronic afib. Eliquis held for procedure. Resume in am if H/H stable. (4) ROQUE (obstructive sleep apnea): Code(s): G47.33 - Obstructive sleep apnea (adult) (pediatric) Status: Chronic Assessment and Plan: CPAP at bedtime and daytime naps. (5) Chronic obstructive pulmonary disease: Code(s): J44.9 - Chronic obstructive pulmonary disease, unspecified Status: Chronic Assessment and Plan: Not in acute exacerbation. PRN albuterol for SOB or wheezing. (6) Chronic respiratory failure with hypoxia, on home oxygen therapy: Code(s): J96.11 - Chronic respiratory failure with hypoxia; Z99.81 - Dependence on supplemental oxygen Status: Chronic Assessment and Plan: chronic, patient uses 2L O2 intermittently as needed at home. (7) Hypertension: Qualifiers: Hypertension type: essential hypertension Qualified Code(s): I10 - Essential (primary) hypertension Code(s): I10 - Essential (primary) hypertension Status: Chronic Assessment and Plan: Continue losartan, amlodipine, and metoprolol at home doses as BP tolerates. Monitor vitals. BP 106/52-113/76 C/o dizziness today. check orthostatic vitals. Plan CODE STATUS: DNR Discharge disposition: PT/OT evaluation pending. Time Spent With Patient Time with patient: 25 - 35 minutes Subjective Date/time seen: 12/05/22 16:53 She reports feeling more tired today and weak. She has dizziness when getting out of bed. No fevers, chills, diaphoresis, abd or flank pain. Review of Systems Review of Systems: All systems reviewed & are unremarkable except as noted in HPI and below Exam Narrative: General: No acute distress.? Older adult female sitting up in the bed. Nontoxic appearing. Mental Status/Psych: Awake, alert and oriented x4 with clear speech. Pleasant and cooperative. Skin: Skin fair, warm, dry and intact without rashes or lesions. Fair turgor.? HEENT: Normocephalic. Sclera is non-icteric. Pupils equal and round. Oral mucosa pink and moist. Neck: No JVD. Heart: Irregularly irregular rate and rhythm. No murmurs, gallops, or rubs auscultated. Chest: Respirations even and unlabored. Lung sounds are clear to auscultation without wheezes, rhonchi, or rales. Abdomen: Soft, obese and non-tender to palpation.? Bowel sounds present in all 4 quadrants. No guarding, suprapubic or CVA tenderness. Rivera: clear, yellow urine. Extremities:? No edema, erythema or calf tenderness. Grossly normal ROM. Radial and dorsalis pedis pulses +2 bilaterally. Neurological: No focal deficits. Cranial nerves 2-12 grossly intact. Objective Data Vital Signs Vital Signs: Vital Signs - 24 hr
[2022-12-05] MEDS: DOXAZOSIN MESYLATE 4 MG TABLET PO (17:01)
[2022-12-06] MEDS: LEVOTHYROXINE SODIUM 50 MCG TABLET PO (05:29)
[2022-12-06 06:00] VITALS: BP 139/66; PULSE 87; RESP 17; TEMP 36.2; O2SAT 96
[2022-12-06 06:32] LABS: Basophils Percent Auto 0.3 % (0.2-1.2); Eosinophils Absolute Auto 0.1 K/mm3 (0-0.3); Eosinophils Percent Auto 1.2 % (0-4.4); Hematocrit 30.8 % (37.0-47.0); Hemoglobin 9.9 g/dL (12.0-15.0); Immature Granulocyte Absolute 0.05 K/mm3 (0.00-0.031); Immature Granulocyte Percent A 0.5 % (0-0.5); Lymphocytes Absolute Auto 2.05 K/mm3 (0.9-3.2); Lymphocytes Percent Auto 21.3 % (18.3-44.2); Mean Corpuscular HGB Conc 32.1 g/dl (32-36); Mean Corpuscular Hemoglobin 31.6 pg (26-34); Mean Corpuscular Volume 98.4 fl (80-100); Monocytes Absolute Auto 0.8 K/mm3 (0.1-0.6); Monocytes Percent Auto 7.9 % (2.6-8.5); Neutrophils Absolute Auto 6.6 K/mm3 (1.3-6.7); Neutrophils Percent Auto 68.8 % (45.5-73.1); Platelet Count Result 149 k/mm3 (150-375); Red Blood Count 3.13 M/mm3 (4.2-5.4); Red Cell Distribution Width 13.6 % (11.5-14.5); White Blood Count 9.6 K/mm3 (4.5-10.0)
[2022-12-06 06:41] LABS: Alanine Aminotransferase 29 U/L (6-35); Albumin Level 3.2 g/dL (3.5-5.1); Alkaline Phosphatase 54 U/L (38-126); Anion Gap 4 mmol/L (8-16); Aspartate Amino Transferase 33 U/L (14-36); Bilirubin,Total 0.5 mg/dL (0.2-1.3); Blood Urea Nitrogen 19 mg/dL (7-17); Calcium 8.1 mg/dL (8.4-10.2); Carbon Dioxide 27 mmol/L (22-30); Chloride 104 mmol/L (98-107); Estimated CRCL calculation 65 ml/min; Estimated Glomerular Filt Rate > 60; Glucose 124 mg/dL (65-110); Magnesium 2.2 mg/dL (1.6-2.3); Potassium 3.9 mmol/L (3.4-5.0); Sodium 135 mmol/L (137-145)
[2022-12-06 08:00] VITALS: O2SAT 97
[2022-12-06] MEDS: APIXABAN 5 MG TABLET PO (08:17)
[2022-12-06 08:18] VITALS: PULSE 80
[2022-12-06] MEDS: ATORVASTATIN 40 MG TABLET PO (08:18)
[2022-12-06] MEDS: MULTIVITAMINS THERAPEUTIC TAB (*BKC) 1 TABLET PO (08:18)
[2022-12-06] MEDS: SERTRALINE HCL 50 MG TABLET 100 MG PO (08:18)
[2022-12-06] MEDS: LOSARTAN POTASSIUM 100 MG TABLET PO (08:18)
[2022-12-06] MEDS: METOPROLOL TARTRATE 25 MG TABLET PO (08:18)
[2022-12-06] MEDS: amLODIPine BESYLATE 5 MG TABLET PO (08:18)
[2022-12-06 09:46] VITALS: O2SAT 97
[2022-12-06 13:00] VITALS: BP 119/45; PULSE 80; RESP 18; TEMP 36.1; O2SAT 97
== END 2022-12-06 13:30 | disposition home or self-care (01) ==
LOC: ANHED 22:04 → ANH3MEDSUR 23:40
PROVIDERS: Emergency Medicine; Nurse Practitioner Family; Urology; Admitting Provider Internal Medicine; Emergency Provider Physician Assistant; PCP Internal Medicine; Visit Provider Internal Medicine
PROC: (CPT 52352; principal; 2022-12-04 11:00)
DX: N20.1 Calculus of ureter (principal); N39.0 Urinary tract infection, site not specified; J44.9 Chronic obstructive pulmonary disease, unspecified; F41.8 Other specified anxiety disorders; J96.11 Chronic respiratory failure with hypoxia; Z99.81 Dependence on supplemental oxygen; I10 Essential (primary) hypertension; I25.10 Atherosclerotic heart disease of native coronary artery without angina pectoris; E03.9 Hypothyroidism, unspecified; G47.33 Obstructive sleep apnea (adult) (pediatric); Z99.89 Dependence on other enabling machines and devices; E66.01 Morbid (severe) obesity due to excess calories; Z68.39 Body mass index [BMI] 39.0-39.9, adult; Z20.822 Contact with and (suspected) exposure to COVID-19; Z79.01 Long term (current) use of anticoagulants; Z79.899 Other long term (current) drug therapy
CPT/HCPCS: 52332; 36415; 74018; 74176; 74420; 80048; 80053; 81001; 83036; 83735; 85025; 85027; 85610; 85730; 87077; 87086; 87186; 94660; 96361; 96365; 96375; 97161; 97165; 99285; A9270; C1758; C1769; C2617; G0378; J0696; J2270; J2405; J2704; J7030; J7120

== ENCOUNTER 2022-12-22 17:10 | Inpatient (IN) | payer OTHER, SELFPAY ==
[2022-12-22] VITALS (8 sets, daily range): BP systolic 124–159; BP diastolic 54–107; PULSE 77–98; RESP 16–26; TEMP 36–36.9; O2SAT 93–97
--- NOTE | ~2022-12-22 | XR_ITS ---
EXAMINATION: XR chest 2V DATE: 12/22/2022 18:25 INDICATION: Fever. TECHNIQUE: Frontal and lateral views of the chest were obtained. COMPARISON: Chest single view 11/05/2022, CT abdomen and pelvis 12/03/2022 FINDINGS: There is a diffuse interstitial pattern, consistent mild pulmonary edema. No pleural effusi on or pneumothorax. Cardiomegaly is noted. There is a right shoulder arthroplasty. There are surgical clips in right axilla. IMPRESSION: 1. Mild pulmonary edema. 2. Cardiomegaly. Reviewed, dictated and finalized at location E.
--- NOTE | ~2022-12-22 | CT_ITS ---
EXAMINATION: CT abdomen pelvis wo con DATE: 12/22/2022 20:24 INDICATION: Fever. TECHNIQUE: Computed tomography (CT) of the abdomen and pelvis was performed without intravenous contr ast. Automated exposure control and iterative reconstruction technique were employed. The dose-length product was 1285.77 mGy-cm. COMPARISON: CT abdomen and pelvis 12/03/2022, chest CT 10/06/2021, CT abdomen 11/25/2008 FINDINGS: The visualized portions of the lung bases demonstrate mild atelectasis. There is a 7 mm nod ule in left lower lobe, stable from 10/06/2021, likely benign. There is chronic peripheral septal thic kening in the lungs. No bronchiectasis or honeycombing. A calcified right lung nodules consistent wit h old granulomatous disease. No pleural effusion. Cardiomegaly is noted. There are coronary artery ca lcifications. No pericardial effusion. There is a small sliding hiatal hernia. The liver demonstrates surface nodularity and hypertrophy of left lateral segment, consistent with cirrhosis. Calcification s in the liver and spleen are consistent with old granulomatous disease. The gallbladder, pancreas, a nd adrenal glands are normal. There is a 4 mm stone in right kidney. There is a right internal ureter al stent in expected position. There are 3 stones in proximal right ureter measuring up to 3 mm. Ther e are cysts in left kidney measuring up to 14 mm. There are no dilated loops of bowel. The appendix i s not visualized. There is calcified atherosclerosis of the aorta and many of the other arteries. The re are no pathologically enlarged lymph nodes. There is no free intraperitoneal fluid. There is sever e thoracic and lumbar spondylosis. There are chronic bilateral L5 pars defects. There is 9 mm anterol isthesis of L5 on S1. IMPRESSION: 1. Stones in the right kidney and right ureter with right internal ureteral stent in expected positio n. 2. Small sliding hiatal hernia. 3. Cirrhosis of the liver. Reviewed, dictated and finalized at location E. IMPRESSION: 1. Stones in the right kidney and right ureter with right internal ureteral penny nt in expected position. 2. Small sliding hiatal hernia. 3. Cirrhosis of the liver.
--- NOTE | ~2022-12-22 | XR_ITS ---
XR abdomen/kub 1V 12/23/2022 12:34 Indication: Surgical planning Procedure: KUB Comparison: 12/03/2022 Findings: There are right renal and proximal ureteral stones. Right internal ureteral stent in expect ed position. Nonobstructive bowel gas pattern. Severe lumbar spondylosis with levoscoliosis. There is a radiopaque battery pack overlying the right upper abdomen. Lung bases grossly unremarkable. Impression: 1: Right renal and proximal ureteral stones. Reviewed, dictated and finalized at location B. Impression: 1: Right renal and proximal ureteral stones.
--- NOTE | 2022-12-22 18:10 | ED.FEVER ---
HPI - Fever General Chief Complaint: Fever Stated Complaint: fever/nausea Time Seen by Provider: 12/22/22 18:10 Source: patient and family Mode of arrival: ambulatory Limitations: no limitations History of Present Illness HPI Narrative: Patient is a 77-year-old female with a history of hypertension, COPD, congestive heart failure, atrial fibrillation on chronic anticoagulation, recent admission to this facility for urosepsis, kidney stone, for which urology was consulted and placed ureteral stent. Patient continued on antibiotics and was discharged home. Patient reports low-grade fever today of 99 Fahrenheit. She reports generalized malaise. She denies any specific cough, abdominal pain, flank pain. No dysuria or hematuria. She does endorse a dark coloration to urine today despite drinking plenty of water per patient. She denies nausea, vomiting. No chest pain or shortness of breath. No leg swelling, calf pain, rashes. Patient has been compliant with her medications. I spoke directly with the patient. I reviewed the patient's recent emergency department visit, history and physical, progress notes and discharge summary as well as urology consultation notes. Per chart review, 12/04/2022, patient with right ureteral stent placement and cystoscopy. Pt cultures grew e.coli. Related Data Home Medications Medication Instructions Recorded Confirmed atorvastatin 40 mg tablet 40 mg PO DAILY 02/03/20 12/04/22 metoprolol tartrate 50 mg tablet 25 mg PO BID 02/03/20 12/13/22 apixaban 5 mg tablet (Eliquis) 5 mg PO BID 07/28/20 12/13/22 multivitamin (Daily Multi-Vitamin 1 tablet PO DAILY 12/04/20 12/13/22 tablet) amlodipine 5 mg tablet 5 mg PO DAILY 12/03/22 12/13/22 doxazosin 4 mg tablet 4 mg PO QPM 12/04/22 12/13/22 levothyroxine 50 mcg tablet 50 mcg PO DAILY 12/04/22 12/13/22 losartan 100 mg tablet 100 mg PO DAILY 12/04/22 12/13/22 sertraline 100 mg tablet 100 mg PO DAILY 12/04/22 12/13/22 Allergies Allergy/AdvReac Type Severity Reaction Status Date / Time No Known Allergies Allergy Verified 12/22/22 17:11 Review of Systems Review of Systems: CONSTITUTIONAL: Reports fever, denies chills or diaphoresis EYES: Denies visual changes, redness, or discharge. ENT: Denies rhinorrhea, congestion, sore throat, or otalgia. CARDIOVASCULAR: Denies chest pain, palpitations, or edema. RESPIRATORY: Denies cough or dyspnea. GASTROINTESTINAL: Denies abdominal pain, nausea, vomiting, or diarrhea. GENITOURINARY: Denies dysuria or hematuria. Reports dark coloration to urine. SKIN: Denies rash or itching. MUSCULOSKELETAL: Denies back pain, joint pain, or myalgia. NEUROLOGIC: Denies headache, numbness, or weakness. [facility] Past Medical History Medical History Atrial fibrillation Chronic anticoagulation Chronic obstructive pulmonary disease Chronic respiratory failure with hypoxia, on home oxygen therapy Congestive heart failure Echocardiogram August 2019: EF 55-60, moderate pulmonary hypertension with RVSP of 61 biatrial enlargement right greater than left, findings unchanged compared to 2017 Depression Depression with anxiety Follicular lymphoma Hearing loss, bilateral Hypertension Hypothyroidism Interstitial lung disease Morbid (severe) obesity due to excess calories Obstructive sleep apnea on CPAP CPAP of 9 with 2 L bleed in oxygen with last polysomnogram April 2021 Paralysis of left vocal cord Peripheral neuropathy Pre-diabetes Patient's A1c has not been above 6 ever Pulmonary hypertension Moderate pulmonary hypertension noted on echocardiogram 2020 with RVSP of 61 TMJ (temporomandibular joint disorder) Vertigo Surgical History Surgical History History of arthroscopy of right shoulder History of bilateral cataract extraction Family History Family History (Reviewed 12/13/22 @ 11:22 by Lynda Hopson
[2022-12-22 19:14] LABS: Basophils Percent Auto 0.2 % (0.2-1.2); Eosinophils Percent Auto 0.2 % (0-4.4); Hematocrit 36.7 % (37.0-47.0); Hemoglobin 12.3 g/dL (12.0-15.0); Immature Granulocyte Absolute 0.06 K/mm3 (0.00-0.031); Immature Granulocyte Percent A 0.4 % (0-0.5); Lymphocytes Absolute Auto 3.84 K/mm3 (0.9-3.2); Lymphocytes Percent Auto 28.7 % (18.3-44.2); Mean Corpuscular HGB Conc 33.5 g/dl (32-36); Mean Corpuscular Hemoglobin 32.7 pg (26-34); Mean Corpuscular Volume 97.6 fl (80-100); Mean Platelet Volume 9.7 fl (7.4-10.4); Monocytes Absolute Auto 0.9 K/mm3 (0.1-0.6); Monocytes Percent Auto 6.7 % (2.6-8.5); Neutrophils Absolute Auto 8.5 K/mm3 (1.3-6.7); Neutrophils Percent Auto 63.8 % (45.5-73.1); Platelet Count Result 188 k/mm3 (150-375); Red Blood Count 3.76 M/mm3 (4.2-5.4); Red Cell Distribution Width 14.2 % (11.5-14.5); White Blood Count 13.4 K/mm3 (4.5-10.0)
[2022-12-22 19:21] LABS: Appearance Urine Cloudy (Clear); Bacteria Urine None Seen /hpf; Bilirubin Urine Negative (Negative); Blood Urine 3+ (Negative); Color Urine Yellow (Yellow); Glucose Urine UA Negative (Negative); Ketones Urine Negative (Negative); Leukocyte Esterase Ur 3+ LEU/UL (Negative); Nitrate Urine Negative (Negative); Non Pathogenic Casts 0-2; Protein Urine 1+ mg/dL (Negative); RBC Urine >100 /hpf (0-2); Specific Grav Ur 1.009 (1.001-1.035); Squamous Epithelial Cell Urine None seen /hpf (Few); Urobilinogen Urine 0.2 mg/dL (<2.0); WBC Urine >100 /hpf; pH Urine 6.5 (5.0-9.0)
--- NOTE | 2022-12-22 19:21 | PC.NURSE ---
this RN assumed care of patient
[2022-12-22 19:23] LABS: INR 1.6; Prothrombin Time 20.1 Seconds (11.1-14.7)
[2022-12-22 19:24] LABS: Add Urine Microscopic? YES
[2022-12-22 19:24] LABS: Partial Thromboplastin Time 33.7 SECONDS (22.3-36.8)
[2022-12-22 19:26] LABS: Lactic Acid Reflex 1.4 mmol/L (0.7-2.0)
[2022-12-22 19:31] LABS: Alanine Aminotransferase 25 U/L (6-35); Albumin Level 4.4 g/dL (3.5-5.1); Alkaline Phosphatase 65 U/L (38-126); Anion Gap 7 mmol/L (8-16); Aspartate Amino Transferase 30 U/L (14-36); Bilirubin,Total 0.8 mg/dL (0.2-1.3); Blood Urea Nitrogen 21 mg/dL (7-17); CRP 2.8 mg/dL (<1.0); Calcium 8.7 mg/dL (8.4-10.2); Carbon Dioxide 28 mmol/L (22-30); Chloride 99 mmol/L (98-107); Estimated CRCL calculation 51 ml/min; Estimated Glomerular Filt Rate > 60; Glucose 129 mg/dL (65-110); Lipase 78 U/L (23-300); Potassium 3.8 mmol/L (3.4-5.0); Sodium 134 mmol/L (137-145)
[2022-12-22 19:51] LABS: Influenza A QL RT-PCR Negative (Negative); Influenza B QL RT-PCR Negative (Negative); RSV RNA, RT-PCR Negative (Negative); SARS-CoV-2 RNA PCR Negative (Negative)
[2022-12-22] MEDS: PIPERACILLN/TAZ 3.375GM/NS50ML 3.375 GM/50 ML BAG IVPB (20:03)
--- NOTE | 2022-12-22 21:38 | PM.IMHP ---
H&P: HPI History of Present Illness Date/Time: 12/22/22 21:38 Chief Complaint: 78 years old female with past medical history COPD hypertension CHF AFib on oral anticoagulation sleep apnea morbid obesity infiltrative lung disease presents to the hospital with low-grade fever associated with dysuria and frequency patient denies flank pain patient was recently discharged from the hospital 12/05/2022 where she was treated for urosepsis secondary to E coli pansensitive associated with obstructive uropathy status post right ureteral Stent placement UA was abnormal patient has leukocytosis chest x-ray concern for pulmonary edema CT scan of the abdomen shows multiple kidney stone with stent in the place no evidence of hydronephrosis patient was found to have sepsis secondary to UTI started on IV antibiotics also since chest x-ray shows pulmonary edema and patient has lower extremity swelling 1 dose of IV Lasix was was given as patient also has history of CHF and she was tachypneic Review of Systems Review of Systems: Twelve system review was done negative except above PMFSH Past Medical History Medical History Atrial fibrillation Chronic anticoagulation Chronic obstructive pulmonary disease Chronic respiratory failure with hypoxia, on home oxygen therapy Congestive heart failure Echocardiogram August 2019: EF 55-60, moderate pulmonary hypertension with RVSP of 61 biatrial enlargement right greater than left, findings unchanged compared to 2017 Depression Depression with anxiety Follicular lymphoma Hearing loss, bilateral Hypertension Hypothyroidism Interstitial lung disease Morbid (severe) obesity due to excess calories Obstructive sleep apnea on CPAP CPAP of 9 with 2 L bleed in oxygen with last polysomnogram April 2021 Paralysis of left vocal cord Peripheral neuropathy Pre-diabetes Patient's A1c has not been above 6 ever Pulmonary hypertension Moderate pulmonary hypertension noted on echocardiogram 2020 with RVSP of 61 TMJ (temporomandibular joint disorder) Vertigo Surgical History Surgical History History of arthroscopy of right shoulder History of bilateral cataract extraction Family History Family History Sibling Family history of cardiovascular disease Mother Family history of primary malignant neoplasm of liver, Onset Age: 83 Social History Social History Social History: Surrogate medical decision maker: Tyrone Newton, spouse. Code status: Full code. Smoking status: Never smoker Second hand tobacco smoke exposure: Yes (As a child and young adult) Alcohol intake: never Substance use: never Substance use type: does not use Lack of Transportation: No Lack of Food: Never True Current Housing: I Have Housing Concerned About Future Housing: No Difficulty Paying Gas/Electric Bills: No Difficulty Paying for Meds: No Currently Unemployed: No Education: High School Diploma/GED Difficulty w/ Childcare or Family Care: No Living arrangements: with family Occupation/Education: retired Spiritual care concerns: No Agree to blood products: Yes Meds Home Medications and Allergies Home Medications Medication Instructions Recorded Confirmed Type atorvastatin 40 mg tablet 40 mg PO DAILY 02/03/20 12/04/22 History metoprolol tartrate 50 mg tablet 25 mg PO BID 02/03/20 12/13/22 History apixaban 5 mg tablet (Eliquis) 5 mg PO BID 07/28/20 12/13/22 History multivitamin (Daily Multi-Vitamin 1 tablet PO DAILY 12/04/20 12/13/22 History tablet) albuterol sulfate 90 mcg/actuation 2 inh inhalation Q6H PRN shortness 06/05/22 12/13/22 Rx breath activated powder inhaler of breath #1 ea raloxifene 60 mg tablet (Evista) 60 mg PO DAILY #30 tabs
[2022-12-22] MEDS: FUROSEMIDE INJ 40 MG/4 ML VIAL 20 MG IV PUSH (22:39)
[2022-12-22] MEDS: HEPARIN SODIUM 5,000 UNITS/ML VIAL 5000 UNITS SUB-Q (22:39)
[2022-12-23] VITALS (13 sets, daily range): BP systolic 124–157; BP diastolic 60–77; PULSE 60–85; RESP 14–17; TEMP 35.7–36.5; O2SAT 95–99; BMI 38.9
--- NOTE | 2022-12-23 00:28 | ADMGEN ---
This patient, Rhoda Newton, was admitted to 3 [facility] Room 301-01. Patient/family oriented to hospital policies and general routines including ID bracelet, bed and alarms, visiting hours, pain management, procedures, bathroom and other care routines, personal items, smoking policy, room service/diet, and visiting hours. Information on how to activate the Rapid Response Team has been discussed. Patient/Family are encouraged to report perceived risks to care and to ask questions if they do not understand what they are told or what they should do.
[2022-12-23 01:03] LABS: NT Pro B Type Natriuretic Pept 2180 pg/mL (19.9-100)
[2022-12-23] MEDS: PIPERACILLN/TAZ 3.375GM/NS50ML 3.375 GM/50 ML BAG IVPB ×4 (01:05→17:29)
[2022-12-23 06:10] LABS: Basophils Percent Auto 0.3 % (0.2-1.2); Eosinophils Absolute Auto 0.1 K/mm3 (0-0.3); Eosinophils Percent Auto 0.8 % (0-4.4); Hematocrit 31.8 % (37.0-47.0); Hemoglobin 10.4 g/dL (12.0-15.0); Immature Granulocyte Absolute 0.05 K/mm3 (0.00-0.031); Immature Granulocyte Percent A 0.5 % (0-0.5); Lymphocytes Absolute Auto 2.76 K/mm3 (0.9-3.2); Lymphocytes Percent Auto 28.7 % (18.3-44.2); Mean Corpuscular HGB Conc 32.7 g/dl (32-36); Mean Corpuscular Volume 97.8 fl (80-100); Mean Platelet Volume 9.8 fl (7.4-10.4); Monocytes Absolute Auto 0.9 K/mm3 (0.1-0.6); Monocytes Percent Auto 9.3 % (2.6-8.5); Neutrophils Absolute Auto 5.8 K/mm3 (1.3-6.7); Neutrophils Percent Auto 60.4 % (45.5-73.1); Platelet Count Result 155 k/mm3 (150-375); Red Blood Count 3.25 M/mm3 (4.2-5.4); Red Cell Distribution Width 14.2 % (11.5-14.5); White Blood Count 9.6 K/mm3 (4.5-10.0)
[2022-12-23] MEDS: HEPARIN SODIUM 5,000 UNITS/ML VIAL 5000 UNITS SUB-Q ×3 (06:13→22:04)
[2022-12-23 06:26] LABS: Alanine Aminotransferase 18 U/L (6-35); Albumin Level 3.5 g/dL (3.5-5.1); Alkaline Phosphatase 48 U/L (38-126); Anion Gap 4 mmol/L (8-16); Aspartate Amino Transferase 23 U/L (14-36); Bilirubin,Total 0.8 mg/dL (0.2-1.3); Blood Urea Nitrogen 18 mg/dL (7-17); Calcium 7.6 mg/dL (8.4-10.2); Carbon Dioxide 29 mmol/L (22-30); Chloride 104 mmol/L (98-107); Estimated CRCL calculation 51 ml/min; Estimated Glomerular Filt Rate > 60; Glucose 121 mg/dL (65-110); Sodium 137 mmol/L (137-145)
[2022-12-23] MEDS: LEVOTHYROXINE SODIUM 50 MCG TABLET PO (09:21)
[2022-12-23] MEDS: FAMOTIDINE 20 MG TABLET PO ×2 (09:21→22:03)
[2022-12-23] MEDS: ATORVASTATIN 40 MG TABLET PO (09:22)
[2022-12-23] MEDS: RALOXIFENE HCL (*CHEMO) 60 MG TABLET PO (09:22)
[2022-12-23] MEDS: LOSARTAN POTASSIUM 100 MG TABLET PO (09:22)
[2022-12-23] MEDS: FUROSEMIDE 20 MG TABLET PO ×2 (09:22→17:29)
[2022-12-23] MEDS: METOPROLOL TARTRATE 25 MG TABLET PO ×2 (09:22→22:02)
--- NOTE | 2022-12-23 11:29 | WPDURCON ---
Assessment and Plan Assessment and plan (1) Right ureteral stone: Code(s): N20.1 - Calculus of ureter Status: Acute Assessment and Plan: Will plan to continue to treat for UTI, stent is in place on imaging and draining. Creatinine is stable. Patient has a f/u next week with Dr. Duncan to discuss definitive stone management. Will get a KUB to ensure stones are visible in anticipation of a lithotripsy in 1-2 weeks. No surgical plans at this time. No other evaluation necessary. Urology Consult Note HPI Date Seen: 12/23/22 Time Seen: 09:00 Requesting Physician: Ian Grissom MD Primary Care Provider: Lorraine Howe APRN Consult Narrative Reason for consult: Right Stent in place, right ureteral stones/UTI Narrative: Rhoda Newton is a 77 year old female who presented to the ER last night for low grade fever and fatigue. She is s/p Cystoscopy, right stent placement, right retrograde pyelogram with Dr. Cintron on 12/04/22. She has 3 right proximal ureteral stones noted on her CT and KUB from 12/04/22. Her urine culture from 12/03/22 grew E-Coli, which she was treated for and had a repeat urine culture done on 12/13/22 which was negative. She has a UA today that is suggestive of a UTI, but is afebrile at this time. Urine culture is now pending, a repeat CT scan on 12/22/22 shows right stent is in place and draining and right ureteral stones are still in proximal ureter. WBC is down to 9.6 from 13.4. Creatinine is 0.90. She is currently on Zosyn and states her dysuria, hematuria and right flank pain are better today. Review of Systems Cardiovascular: Cardiovascular: Denies chest pain Respiratory: Respiratory: Reports no additional respiratory complaints Gastrointestinal: Gastrointestinal: Denies abdominal pain, Denies nausea and Denies vomiting Genitourinary: Genitourinary: Reports hematuria, Reports nocturia, Denies pelvic pain, Reports flank pain, Denies urinary incontinence, Denies urinary hesitancy and Denies urinary urgency PMF Past Medical History Medical History Atrial fibrillation Chronic anticoagulation Chronic obstructive pulmonary disease Chronic respiratory failure with hypoxia, on home oxygen therapy Congestive heart failure Echocardiogram August 2019: EF 55-60, moderate pulmonary hypertension with RVSP of 61 biatrial enlargement right greater than left, findings unchanged compared to 2017 Depression Depression with anxiety Follicular lymphoma Hearing loss, bilateral Hypertension Hypothyroidism Interstitial lung disease Morbid (severe) obesity due to excess calories Obstructive sleep apnea on CPAP CPAP of 9 with 2 L bleed in oxygen with last polysomnogram April 2021 Paralysis of left vocal cord Peripheral neuropathy Pre-diabetes Patient's A1c has not been above 6 ever Pulmonary hypertension Moderate pulmonary hypertension noted on echocardiogram 2020 with RVSP of 61 TMJ (temporomandibular joint disorder) Vertigo Surgical History Surgical History History of arthroscopy of right shoulder History of bilateral cataract extraction Family History Family History Sibling Family history of cardiovascular disease Mother Family history of primary malignant neoplasm of liver, Onset Age: 83 Social History Social History Social History: Surrogate medical decision maker: Tyrone Lamar, spouse. Code status: Full code. Smoking status: Never smoker Second hand tobacco smoke exposure: Yes (As a child and young adult) Alcohol intake: never Substance use: never Substance use type: does not use Lack of Transportation: No Lack of Food: Never True Current Housing: I Have Housing Concerned About Future Housing: No Difficulty Paying
--- NOTE | 2022-12-23 13:20 | PM.IMPN ---
Progress Note: A&P Assessment and Plan (1) Acute UTI: Code(s): N39.0 - Urinary tract infection, site not specified Status: Acute Assessment and Plan: Probably related to kidney stone IV Zosyn follow urine culture blood culture review CT scan of the abdomen discussed with ER physician urology following no evidence of hydronephrosis Urine culture pending. Tailor urine culture results to antibiotic therapy. (2) Chronic diastolic (congestive) heart failure: Code(s): I50.32 - Chronic diastolic (congestive) heart failure Status: Acute Assessment and Plan: Patient is tachypneic chest x-ray concern for pulmonary edema will give 1 dose of Lasix in the ED 12/23 patient's lower extremity edema resolved. Continue home furosemide dosing and hold off on IV Lasix for now. (3) COPD (chronic obstructive pulmonary disease): Qualifiers: COPD type: unspecified COPD Qualified Code(s): J44.9 - Chronic obstructive pulmonary disease, unspecified Code(s): J44.9 - Chronic obstructive pulmonary disease, unspecified Status: Chronic Assessment and Plan: Stable resume home medication (4) Hypertension: Qualifiers: Hypertension type: essential hypertension Qualified Code(s): I10 - Essential (primary) hypertension Code(s): I10 - Essential (primary) hypertension Status: Chronic Assessment and Plan: Continue home medications Monitor BP (5) Kidney stone on right side: Code(s): N20.0 - Calculus of kidney Status: Acute Assessment and Plan: Status post stent placement CT abdomen and pelvis showing stent is in place. Follow-up with urology (6) Abnormal CT of the abdomen: Code(s): R93.5 - Abnormal findings on diagnostic imaging of other abdominal regions, including retroperitoneum Status: Acute Assessment and Plan: CT scan of the abdomen shows possible liver cirrhosis follow-up with PCP as outpatient (7) A-fib: Code(s): I48.91 - Unspecified atrial fibrillation Status: Acute Assessment and Plan: Stable patient on Eliquis pending home medication reconciliation Subjective Date/time seen: 12/23/22 13:20 Interval history: Patient has no New complaints at this time. Patient's symptoms have resolved she is feeling much better. Patient did have body aches chills, subjective fever and nausea. She is feeling well at this time. awaiting urine culture results at this time. Review of Systems Review of Systems: All systems reviewed & are unremarkable except as noted in HPI and below Exam Narrative: GENERAL: Comfortable, no acute distress HENMT: moist mucous membranes EYES: EOM intact b/l NECK: no lymphadenopathy RESPIRATORY: clear to auscultation CARDIO: RRR GI: soft, nontender, bowel sounds present SKIN: no rashes EXTREMITIES: no edema, redness or tenderness Objective Data Vital Signs Vital Signs: Vital Signs - 24 hr 12/22/22 17:28 12/22/22 18:31 12/22/22 18:33 Temperature 98.4 F Pulse Rate 81 98 81 Respiratory Rate 18 16 16 Blood Pressure 138/65 143/71 H 143/71 H Pulse Oximetry 97 97 93 Oxygen Delivery Room Air 12/22/22 20:32 12/22/22 21:02 12/22/22 21:32 Temperature Pulse Rate 77 82 Respiratory Rate 23 H 26 H Blood Pressure 136/64 134/54 L 124/54 L Pulse Oximetry 95 97 94 Oxygen Delivery 12/22/22 23:02 12/22/22 23:55 12/23/22 00:50 Temperature 96.8 F L Pulse Rate 88 83 Respiratory Rate 23 H 16 17 Blood Pressure 130/107 H 159/70 H Pulse Oximetry 95 97 Oxygen Delivery Autopap 12/23/22 00:00 12/23/22 04:00 12/23/22 05:14 Temperature 97 F L Pulse Rate 85 71 72 Respiratory Rate 16 Blood Pressure 150/61 H Pulse Oximetry 99 Oxygen Delivery 12/23/22 09:22 12/23/22 08:00 Temperature Pulse Rate 70 Respiratory Rate Blood Pressure Pulse Oximetry Oxygen Delivery Room Air In
[2022-12-23] MEDS: SERTRALINE HCL 50 MG TABLET 100 MG PO (22:00)
[2022-12-23] MEDS: amLODIPine BESYLATE 5 MG TABLET PO (22:03)
[2022-12-23] MEDS: DOXAZOSIN MESYLATE 4 MG TABLET PO (22:05)
[2022-12-23] MEDS: MELATONIN 3 MG TABLET PO (22:12)
[2022-12-24] VITALS: PULSE 60
[2022-12-24] MEDS: PIPERACILLN/TAZ 3.375GM/NS50ML 3.375 GM/50 ML BAG IVPB ×2 (00:41→06:11)
[2022-12-24 04:00] VITALS: PULSE 71
[2022-12-24 05:49] VITALS: BP 130/67; PULSE 56; RESP 16; TEMP 35.5; O2SAT 98
[2022-12-24] MEDS: HEPARIN SODIUM 5,000 UNITS/ML VIAL 5000 UNITS SUB-Q (06:11)
[2022-12-24] MEDS: LEVOTHYROXINE SODIUM 50 MCG TABLET PO (06:12)
[2022-12-24 07:25] LABS: Alanine Aminotransferase 18 U/L (6-35); Albumin Level 3.5 g/dL (3.5-5.1); Alkaline Phosphatase 50 U/L (38-126); Anion Gap 5 mmol/L (8-16); Aspartate Amino Transferase 23 U/L (14-36); Bilirubin,Total 0.6 mg/dL (0.2-1.3); Blood Urea Nitrogen 17 mg/dL (7-17); Calcium 7.8 mg/dL (8.4-10.2); Carbon Dioxide 27 mmol/L (22-30); Chloride 104 mmol/L (98-107); Estimated CRCL calculation 57 ml/min; Estimated Glomerular Filt Rate > 60; Glucose 106 mg/dL (65-110); Potassium 3.2 mmol/L (3.4-5.0); Sodium 136 mmol/L (137-145)
[2022-12-24 07:27] LABS: Basophils Percent Auto 0.5 % (0.2-1.2); Eosinophils Absolute Auto 0.2 K/mm3 (0-0.3); Eosinophils Percent Auto 2.2 % (0-4.4); Hematocrit 31.9 % (37.0-47.0); Hemoglobin 10.2 g/dL (12.0-15.0); Immature Granulocyte Absolute 0.01 K/mm3 (0.00-0.031); Immature Granulocyte Percent A 0.1 % (0-0.5); Lymphocytes Absolute Auto 3.17 K/mm3 (0.9-3.2); Lymphocytes Percent Auto 42.8 % (18.3-44.2); Mean Corpuscular Hemoglobin 31.8 pg (26-34); Mean Corpuscular Volume 99.4 fl (80-100); Mean Platelet Volume 10.2 fl (7.4-10.4); Monocytes Absolute Auto 0.5 K/mm3 (0.1-0.6); Monocytes Percent Auto 7.2 % (2.6-8.5); Neutrophils Absolute Auto 3.5 K/mm3 (1.3-6.7); Neutrophils Percent Auto 47.2 % (45.5-73.1); Platelet Count Result 149 k/mm3 (150-375); Red Blood Count 3.21 M/mm3 (4.2-5.4); White Blood Count 7.4 K/mm3 (4.5-10.0)
[2022-12-24] MEDS: POTASSIUM CHLORIDE 20 MEQ TABLET 60 MEQ PO (09:00)
[2022-12-24 09:01] VITALS: PULSE 93
[2022-12-24] MEDS: FAMOTIDINE 20 MG TABLET PO (09:01)
[2022-12-24] MEDS: RALOXIFENE HCL (*CHEMO) 60 MG TABLET PO (09:01)
[2022-12-24] MEDS: METOPROLOL TARTRATE 25 MG TABLET PO (09:01)
[2022-12-24] MEDS: ATORVASTATIN 40 MG TABLET PO (09:01)
[2022-12-24] MEDS: LOSARTAN POTASSIUM 100 MG TABLET PO (09:02)
--- NOTE | 2022-12-24 10:17 | PM.DS ---
DS: Admitting Diagnosis Discharge Date 12/24/22 Admitting Diagnosis UTI DS: Discharge Diagnosis Discharge Diagnosis (1) Acute UTI: Code(s): N39.0 - Urinary tract infection, site not specified Status: Acute Assessment and Plan: Probably related to kidney stone IV Zosyn follow urine culture blood culture review CT scan of the abdomen discussed with ER physician urology following no evidence of hydronephrosis Urine culture positive for E coli and sensitive to Levaquin and she will be discharged on this. (2) Chronic diastolic (congestive) heart failure: Code(s): I50.32 - Chronic diastolic (congestive) heart failure Status: Acute Assessment and Plan: Patient is tachypneic chest x-ray concern for pulmonary edema will give 1 dose of Lasix in the ED 12/23 patient's lower extremity edema resolved. Continue home furosemide dosing and hold off on IV Lasix for now. (3) COPD (chronic obstructive pulmonary disease): Qualifiers: COPD type: unspecified COPD Qualified Code(s): J44.9 - Chronic obstructive pulmonary disease, unspecified Code(s): J44.9 - Chronic obstructive pulmonary disease, unspecified Status: Chronic Assessment and Plan: Stable resume home medication (4) Hypertension: Qualifiers: Hypertension type: essential hypertension Qualified Code(s): I10 - Essential (primary) hypertension Code(s): I10 - Essential (primary) hypertension Status: Chronic Assessment and Plan: Continue home medications Monitor BP (5) Kidney stone on right side: Code(s): N20.0 - Calculus of kidney Status: Acute Assessment and Plan: Status post stent placement CT abdomen and pelvis showing stent is in place. Follow-up with urology (6) Abnormal CT of the abdomen: Code(s): R93.5 - Abnormal findings on diagnostic imaging of other abdominal regions, including retroperitoneum Status: Acute Assessment and Plan: CT scan of the abdomen shows possible liver cirrhosis follow-up with PCP as outpatient (7) A-fib: Code(s): I48.91 - Unspecified atrial fibrillation Status: Acute Assessment and Plan: Stable patient on Eliquis pending home medication reconciliation DS: Summary Hospital Course Hospital Course: This is a 78-year-old female with past medical history of COPD, hypertension, CHF, AFib, ROQUE and obesity admitted to the ED with a low-grade fever associated with dysuria and frequency. Patient recently treated for urosepsis secondary to E coli. She was discharged from the hospital on 12/05/2022. Patient is status post stent placement. UA positive for infection. CT abdomen pelvis showing multiple kidney stones with stent placed no evidence of hydronephrosis. And started on IV with Zosyn. Chest x-ray revealing pulmonary edema and patient had mild lower extremity swelling and was given 1 dose of Lasix. Patient does have follow-up with Urology in 1 week and is advised that she keep this appointment. Urine culture drawn and came back positive for E coli sensitive to Levaquin. Will discharge patient on Levaquin for total of 5 days of antibiotic therapy. Patient is feeling much better back to herself at the day of discharge. Her labs and vital signs are stable and she is medically clear for discharge. Time Spent with Patient Time attestation: Total time spent providing and/or coordinating discharge services: Exam Narrative: GENERAL: Comfortable, no acute distress HENMT: moist mucous membranes EYES: EOM intact b/l NECK: no lymphadenopathy RESPIRATORY: clear to auscultation CARDIO: RRR GI: soft, nontender, bowel sounds present SKIN: no rashes EXTREMITIES: no edema, redness or tenderness DS: Data Data Completed and Pending Labs on day of discharge: Labs from last 24 hours 12/24/22 06:36 WBC 7.4 RBC 3.21 L Hgb 10.2 L Hct 31.9 L MCV 99.4
== END 2022-12-24 13:51 | disposition home or self-care (01) | DRG 690 ==
LOC: ANHED 21:29 → ANH3MEDSUR 23:03
PROVIDERS: Admitting Provider Internal Medicine; Emergency Provider Emergency Medicine; PCP Family Medicine; Visit Provider Internal Medicine Critical Care Medicine
DX: N39.0 Urinary tract infection, site not specified (principal); N20.2 Calculus of kidney with calculus of ureter; I48.20 Chronic atrial fibrillation, unspecified; I50.32 Chronic diastolic (congestive) heart failure; J96.11 Chronic respiratory failure with hypoxia; J84.9 Interstitial pulmonary disease, unspecified; I11.0 Hypertensive heart disease with heart failure; I27.20 Pulmonary hypertension, unspecified; J44.9 Chronic obstructive pulmonary disease, unspecified; E03.9 Hypothyroidism, unspecified; E66.01 Morbid (severe) obesity due to excess calories; G47.33 Obstructive sleep apnea (adult) (pediatric); G62.9 Polyneuropathy, unspecified; R73.03 Prediabetes; F32.A Depression, unspecified; F41.9 Anxiety disorder, unspecified; Z20.822 Contact with and (suspected) exposure to COVID-19; Z85.72 Personal history of non-Hodgkin lymphomas; Z79.01 Long term (current) use of anticoagulants; Z99.81 Dependence on supplemental oxygen; B96.20 Unspecified Escherichia coli [E. coli] as the cause of diseases classified elsewhere
CPT/HCPCS: 36415; 71046; 74018; 74176; 80053; 81001; 83605; 83690; 83880; 85025; 85610; 85730; 86140; 87040; 87077; 87086; 87186; 87637; 96361; 96365; 96372; 96375; 99285; A9270; G0378; J1644; J1940; J2543; J7030

== ENCOUNTER 2023-02-03 13:34 | Outpatient (CLI) | payer OTHER, SELFPAY ==
[2023-02-03 15:49] LABS: INR 1.5; Partial Thromboplastin Time 32.2 SECONDS (22.3-36.8); Prothrombin Time 18.5 Seconds (11.1-14.7)
== END 2023-02-03 13:35 | disposition home or self-care (01) ==
LOC: ANHSURGERY 13:39
PROVIDERS: PCP Family Medicine; Visit Provider Urology
DX: N20.0 Calculus of kidney (principal); Z01.818 Encounter for other preprocedural examination
CPT/HCPCS: 36415; 85610; 85730; 87086; 87147; 87181; 87186

== ENCOUNTER 2023-02-10 05:09 | Day surgery (SDC) | payer OTHER, SELFPAY ==
[2023-02-01 11:27] VITALS: BMI 39.0
--- NOTE | 2023-02-01 11:51 | PC.NURSE ---
Report to the Outpatient Waiting Room, entrance under the green pavilion located off [facility], at time __6:30AM on date __02/10/23 . Planned Procedure Time: _8:30AM . Time changes happen often and if your time is changed the preop area will call you the afternoon before. - You and your visitor will be asked to self-screen and do not enter if you have any COVID symptoms. - A mask is optional within the hospital at this time. Patients may have clear liquids (water, carbonated beverages, clear teas, apple juice) until 3 hours prior to surgery with a maximum of 20 ounces. - No food from midnight until time of surgery Take the following medications with a SIP of water the morning of surgery: _LEVOTHYROXINE, METOPROLOL, ALBUTEROL INHALER NEEDED DO NOT STOP ANY OF YOUR OTHER PRESCRIPTION MEDICATIONS PRIOR TO SURGERY ?EXCEPT THE FOLLOWING Medications to discontinue per physician ____HOLD ELIQUIS PER DR DUNBAR-PT STATES LAST DOSE 02/07/23. HOLD ALL VITAMINS/SUPPLEMENTS 3 DAYS PRE-OP- LAST DOSE 02/06/23____ Please no make-up, nail georgian, hairspray, perfume, deodorant, or body powder the day of surgery. No jewelry (including any body piercings) or valuables the day of surgery, leave them at home. Please take a shower or bath the night before, or the morning of, surgery with an antibacterial soap. Wear comfortable, loose fitting clothing. Children are encouraged to wear pajamas. - Jewelry must be removed prior to entering the operating room. Rings and piercings that are not removed may be cut off. - The hospital will not accept responsibility for valuables. - Please leave all valuables, including medications, at home the day of surgery. If you are going home after surgery, a licensed driver merchandiser must drive you home. - NO public transportation without another adult if you receive anesthesia. - We recommend that an adult stay with you for 24 hours following discharge. - We also recommend that you do not drive, make important decision, drink alcoholic beverages, or take any drugs that were not prescribed by your health care provider for at least 24 hours after your discharge time. Follow any additional instructions given to you from your surgeon. If you or anyone in your household have experienced Covid symptoms in the past week, please notify your surgeon or the nurse liaison at the phone number below for possible testing. Telephone instructions given to _PATIENT and asked if any additional questions and then verbalized understanding. Patient advised to call surgeon office or pre surgery nurse liaison [phone] if any additional questions.
--- NOTE | 2023-02-06 07:35 | PM.HPGS ---
History of Present Illness History of Present Illness Consent: Risks, benefits, and alternatives have been discussed and questions answered. Patient agrees to proceed with procedure. Chief complaint: Right Ureteral Stone Narrative: Rhoda Newton is a 77 year old female Recently admitted with a painful 5-6 mm obstructing right proximal ureteral stone and possible urinary tract infection. Imaging also shows a similar size stone in her right kidney. Ureteral stent has been placed in it, after discussion of therapeutic options, she is elected for right ESWL. She is aware of the risks including, but not limited to, perinephric hematoma, need for additional procedures an adverse cardiopulmonary events. Review of Systems Review of Systems: All systems reviewed & are unremarkable except as noted in HPI and below PMFSH Past Medical History Medical History Atrial fibrillation Chronic anticoagulation Chronic obstructive pulmonary disease Chronic respiratory failure with hypoxia, on home oxygen therapy Congestive heart failure Echocardiogram August 2019: EF 55-60, moderate pulmonary hypertension with RVSP of 61 biatrial enlargement right greater than left, findings unchanged compared to 2017 Depression Depression with anxiety Follicular lymphoma Hearing loss, bilateral Hypertension Hypothyroidism Interstitial lung disease Morbid (severe) obesity due to excess calories Obstructive sleep apnea on CPAP CPAP of 9 with 2 L bleed in oxygen with last polysomnogram April 2021 Paralysis of left vocal cord Peripheral neuropathy Pre-diabetes Patient's A1c has not been above 6 ever Pulmonary hypertension Moderate pulmonary hypertension noted on echocardiogram 2020 with RVSP of 61 TMJ (temporomandibular joint disorder) Vertigo Surgical History Surgical History History of arthroscopy of right shoulder History of bilateral cataract extraction Family History Family History Sibling Family history of cardiovascular disease Mother Family history of primary malignant neoplasm of liver, Onset Age: 83 Social History Social History Social History: Surrogate medical decision maker: Tyrone Newton, spouse. Code status: Full code. Smoking status: Never smoker Second hand tobacco smoke exposure: Yes Alcohol intake: never Substance use: never Substance use type: does not use Lack of Transportation: No Lack of Food: Never True Current Housing: I Have Housing Concerned About Future Housing: No Difficulty Paying Gas/Electric Bills: No Difficulty Paying for Meds: No Currently Unemployed: No Education: High School Diploma/GED Difficulty w/ Childcare or Family Care: No Living arrangements: with family Additional living arrangements comments: [place] Occupation/Education: retired Spiritual care concerns: No Agree to blood products: Yes Meds Home Medications and Allergies Home Medications Medication Instructions Recorded Confirmed Type atorvastatin 40 mg tablet 40 mg PO DAILY 02/03/20 02/01/23 History metoprolol tartrate 50 mg tablet 25 mg PO BID 02/03/20 02/01/23 History apixaban 5 mg tablet (Eliquis) 5 mg PO BID 07/28/20 02/01/23 History multivitamin (Daily Multi-Vitamin 1 tablet PO DAILY 12/04/20 02/01/23 History tablet) albuterol sulfate 90 mcg/actuation 2 inh inhalation Q6H PRN shortness 06/05/22 02/01/23 Rx breath activated powder inhaler of breath #1 ea doxazosin 4 mg tablet 4 mg PO HS 12/04/22 02/01/23 History levothyroxine 50 mcg tablet 50 mcg PO QAM 12/04/22 02/01/23 History amlodipine 5 mg tablet 5 mg PO HS #90 tabs 01/26/23 02/01/23 Rx diclofenac sodium 1 % topical gel 2 g topical QID #100 grams 01/26/23 02/01/23 Rx sertraline 100 mg tablet 100 mg PO HS
--- NOTE | 2023-02-09 13:33 | WPDANESEPPF ---
Anes - Initial Pre Proc Eval Procedure: Operation Date: 02/10/23 08:30 Proposed Procedures p Right Extracorporeal Shock Wave Lithotripsy - Donnie Duncan MD s Possible Cystoscopy with Ureteral Stent Removal - Donnie Duncan MD Date/Time: 02/09/23 13:33 Surgeon: Donnie Duncan MD Pre Op Diagnosis: Right Ureteral Stone Patient Data Age: 77 Gender: F Height: 1.6 m Weight: 100 kg Allergies Allergy/AdvReac Type Severity Reaction Status Date / Time No Known Allergies Allergy Verified 02/10/23 08:20 Home Medications Medication Instructions Recorded Confirmed Type atorvastatin 40 mg tablet 40 mg PO DAILY 02/03/20 02/01/23 History metoprolol tartrate 50 mg tablet 25 mg PO BID 02/03/20 02/10/23 History apixaban 5 mg tablet (Eliquis) 5 mg PO BID 07/28/20 02/10/23 History multivitamin (Daily Multi-Vitamin 1 tablet PO DAILY 12/04/20 02/01/23 History tablet) albuterol sulfate 90 mcg/actuation 2 inh inhalation Q6H PRN shortness 06/05/22 02/01/23 Rx breath activated powder inhaler of breath #1 ea doxazosin 4 mg tablet 4 mg PO HS 12/04/22 02/01/23 History levothyroxine 50 mcg tablet 50 mcg PO QAM 12/04/22 02/10/23 History amlodipine 5 mg tablet 5 mg PO HS #90 tabs 01/26/23 02/01/23 Rx diclofenac sodium 1 % topical gel 2 g topical QID #100 grams 01/26/23 02/01/23 Rx sertraline 100 mg tablet 100 mg PO HS #90 tabs 01/31/23 02/01/23 Rx losartan 100 mg tablet 100 mg PO QAM 02/01/23 02/01/23 History raloxifene 60 mg tablet 60 mg PO DAILY 02/01/23 02/01/23 History furosemide 20 mg tablet See Rx Instructions .Route 02/02/23 Rx .COMPLEX #90 tabs Patient hx anesthesia problems: none Family hx anesthesia problems: none Results Review: All pre-operative results and documents have been reviewed as part of the pre-operative evaluation. [facility] Past Medical History Medical History Atrial fibrillation Chronic anticoagulation Chronic obstructive pulmonary disease Chronic respiratory failure with hypoxia, on home oxygen therapy Congestive heart failure Echocardiogram August 2019: EF 55-60, moderate pulmonary hypertension with RVSP of 61 biatrial enlargement right greater than left, findings unchanged compared to 2017 Depression Depression with anxiety Follicular lymphoma Hearing loss, bilateral Hypertension Hypothyroidism Interstitial lung disease Morbid (severe) obesity due to excess calories Obstructive sleep apnea on CPAP CPAP of 9 with 2 L bleed in oxygen with last polysomnogram April 2021 Paralysis of left vocal cord Peripheral neuropathy Pre-diabetes Patient's A1c has not been above 6 ever Pulmonary hypertension Moderate pulmonary hypertension noted on echocardiogram 2020 with RVSP of 61 TMJ (temporomandibular joint disorder) Vertigo Surgical History Surgical History History of arthroscopy of right shoulder History of bilateral cataract extraction Family History Family History Sibling Family history of cardiovascular disease Mother Family history of primary malignant neoplasm of liver, Onset Age: 83 Social History Social History Social History: Surrogate medical decision maker: Tyrone Newton, spouse. Code status: Full code. Smoking status: Never smoker Second hand tobacco smoke exposure: Yes Alcohol intake: never Substance use: never Substance use type: does not use Lack of Transportation: No Lack of Food: Never True Current Housing: I Have Housing Concerned About Future Housing: No Difficulty Paying Gas/Electric Bills: No Difficulty Paying for Meds: No Currently Unemployed: No Education: High School Diploma/GED Difficulty w/ Childcare or Family Care: No Living arrangements: with family Additional living arrangeme
[2023-02-10] VITALS (7 sets, daily range): BP systolic 106–125; BP diastolic 51–96; PULSE 65–89; RESP 12–16; TEMP 36.3–36.6; O2SAT 95–100
--- NOTE | ~2023-02-10 | XR_ITS ---
Supine and upright views of the abdomen Clinical history: Lithotripsy COMPARISON: 12/23/2022 Findings: Bowel gas pattern is nonspecific. No evidence for obstruction or free air. Right ureteral s tent remains in place. 8 mm stone present adjacent to the proximal third of the ureteral stent, essen tially unchanged. 2 mm right lower pole renal stone present. No definite left renal stones seen. Dege nerative change of the lumbar spine is noted. Impression: Stable stones at the right lower pole and adjacent to the proximal third of the right ureteral stent. Right ureteral stent remains in place. Reviewed, dictated and finalized at location M. Impression: Stable stones at the right lower pole and adjacent to the proximal third of the right ureteral stent. Right ureteral stent remains in place.
--- NOTE | 2023-02-10 06:22 | WPDHPUPDATE1 ---
History and Physical Update Update Date/Time: 02/10/23 06:22 History and Physical has been reviewed, including an updated exam of the patient. There are NO changes in the patient's condition. Risks, benefits, and alternatives have been discussed and questions answered. Patient agrees to proceed with procedure.
[2023-02-10 08:14] LABS: INR 1.1; Prothrombin Time 14.5 Seconds (11.1-14.7)
[2023-02-10 08:15] LABS: Partial Thromboplastin Time 27.8 SECONDS (22.3-36.8)
[2023-02-10] MEDS: LACTATED RINGERS 1,000 ML 30 ML IV CONT (08:19)
[2023-02-10] MEDS: ceFAZolin 2 GM/D5W 50 ML 2 GM/50 ML BAG IVPB (08:48)
--- NOTE | 2023-02-10 09:24 | P.OP_ITS ---
Procedure Note - Detailed Date of Procedure 02/10/23 Pre-op Diagnosis Right Ureteral Stone Post-op Diagnosis Same Procedure Performed Cystoscopy, right stent removal and right ESWL Surgeon Donnie Duncan MD Anesthesia General Description of Procedure The patient was brought to the operative suite where she was placed in the frog- legged position on the Dornier lithotripter table. Flexible cystoscopy was undertaken with a 16F flexible cystoscopy. Her urethra and bladder neck were endoscopically normal. The bladder mucosa was normal and there was a single, orthotopic ureteral orifice bilaterally. The tip of the indwelling right ureteral stent was grasped and it was removed with ease. The patient was then repositioned in the supine position and the focal point of the lithotriptor was placed at a 5-6mm right proximal ureteral calculus. A total of 3000 shocks were delivered at a power setting of 5. There appeared to be good fragmentation of the stone. The patient tolerated the procedure well and was taken to the recovery room in good condition. Packing No Pathology None sent Complications No immediate complications Disposition PACU
== END 2023-02-10 11:30 | disposition home or self-care (01) ==
PROVIDERS: PCP Family Medicine; Visit Provider Urology
PROC: (CPT 50590; principal; 2023-02-10 08:30)
PROC: (CPT 52310; 2023-02-10 08:30)
DX: N20.1 Calculus of ureter (principal); I48.91 Unspecified atrial fibrillation; J44.9 Chronic obstructive pulmonary disease, unspecified; I50.9 Heart failure, unspecified; I10 Essential (primary) hypertension; E03.9 Hypothyroidism, unspecified; G47.33 Obstructive sleep apnea (adult) (pediatric); R73.03 Prediabetes; E66.01 Morbid (severe) obesity due to excess calories; Z68.38 Body mass index [BMI] 38.0-38.9, adult; Z79.01 Long term (current) use of anticoagulants; Z99.81 Dependence on supplemental oxygen
CPT/HCPCS: 50590; 52310; 36415; 74018; 85610; 85730; 87086; 87147; 87181; 87186; J0690; J1100; J2405; J2704; J3010; J7120

== ENCOUNTER 2023-02-24 14:31 | Outpatient (CLI) | payer OTHER, SELFPAY ==
--- NOTE | ~2023-02-24 | XR_ITS ---
EXAMINATION: XR abdomen/kub 1V INDICATION: Right ureteral stone follow-up TECHNIQUE: Supine views of the abdomen were obtained on 2 radiographs. COMPARISON: 02/10/2023 FINDINGS: The right internal ureteral stent has been removed. The stone previously described adjacent to the proximal stent appears to be in the distal right ureter. There is a 2 mm stone of the right k idney lower pole. There are phleboliths of the pelvis. There is severe lumbar spondylosis. The visual ized lung bases are clear. IMPRESSION: 1. Interval right internal ureteral stent removal with the previously described stone or stone fragme nt in the distal right ureter. Reviewed, dictated and finalized at location B. IMPRESSION: 1. Interval right internal ureteral stent removal with the previously described stone or stone fragment in the distal right ureter.
== END 2023-02-24 14:32 | disposition home or self-care (01) ==
PROVIDERS: PCP Family Medicine; Visit Provider Urology
DX: N20.1 Calculus of ureter (principal)
CPT/HCPCS: 74018

== ENCOUNTER 2023-05-23 08:36 | Outpatient (CLI) | payer OTHER, SELFPAY ==
--- NOTE | ~2023-05-23 | CT_ITS ---
CT Scan of the Chest without Contrast: Clinical Indication: Interstitial pulmonary disease Technique: Contiguous sections were acquired throughout the chest without intravenous contrast. Dose reduction technique was used on this scan by utilizing automated exposure control and iterative recon struction technique. The dose-length product (DLP) was 556.34 mGy-cm. COMPARISON: 10/06/2021 Findings: There is no evidence of any significant mediastinal, hilar or axillary lymphadenopathy. Coronary mateo ry calcifications are present. There is no evidence of pleural or pericardial effusion. Stable 8 mm left lower lobe pulmonary nodule (axial image 75). There are minimal areas of interlobula r septal thickening, with focal areas of minimal centrilobular nodularity. Images through the upper abdomen reveal no abnormalities. Impression: Probable minimal chronic interstitial disease, unchanged from prior exam. Stable 8 mm left lower lobe pulmonary nodule. Reviewed, dictated and finalized at [facility]. Impression: Probable minimal chronic interstitial disease, unchanged from prior exam. Stable 8 mm left lower lobe pulmonary nodule.
[2023-05-23 10:00] VITALS: PULSE 57; O2SAT 95
[2023-05-23 10:03] VITALS: PULSE 83; O2SAT 87
[2023-05-23 10:04] VITALS: PULSE 86; O2SAT 92
[2023-05-23 10:15] VITALS: PULSE 66; O2SAT 95
--- NOTE | 2023-05-23 10:50 | HOMEO2EVAL ---
Evaluation was performed at [facility] Home Oxygen Evaluation RC: Home Oxygen (O2) Evaluation Start: 05/23/23 10:46 Freq: Status: Active Protocol: RPE Activity Type Activity Date Activity User E-sign Co-sign Detail Recorded Client Recorded Date Recorded By Document 05/23/23 10:00 WILIAN [id number] 05/23/23 10:50 WILIAN Document 05/23/23 10:03 WILIAN [id number] 05/23/23 10:50 WILIAN Document 05/23/23 10:04 WILIAN [id number] 05/23/23 10:50 WILIAN Document 05/23/23 10:15 WILIAN [id number] 05/23/23 10:50 WILIAN 05/23/23 05/23/23 05/23/23 10:00 10:03 10:04 Home O2 Evaluation [Oxygen] -Test Phase Resting Exercise Exercise -Oxygen Delivery Room Air Room Air Nasal Cannula -Oxygen Flow Rate (L/min) 2 [Pulse Oximetry] -Pulse Oximetry (90-100 %) 95 87 L 92 [Pulse Rate] -Pulse Rate (60-100 beats/min) 57 L 83 86 [Evaluation] -Activity Tolerance Fair -Rating of Perceived Dyspnea (PD) +3 Moderate Difficulty, But Can Continue -Rate of Perceived Exertion (PE) 13 Somewhat Query Text:Click the Protocol Button Hard to View the RPE Scale [Exercise] -Ambulation Distance (feet) 250 -Ambulation Distance (meters) 76.19 [Comments] -Home Oxygen Evaluation Comments PT REQUIRES 2 L HOME O2 WITH EXERTION/ ACTIVITY [Charges] -Treatment Charges O2 Evaluation - Outpatient 05/23/23 10:15 Home O2 Evaluation [Oxygen] -Test Phase Resting -Oxygen Delivery Room Air -Oxygen Flow Rate (L/min) [Pulse Oximetry] -Pulse Oximetry (90-100 %) 95 [Pulse Rate] -Pulse Rate (60-100 beats/min) 66 [Evaluation] -Activity Tolerance -Rating of Perceived Dyspnea (PD) -Rate of Perceived Exertion (PE) Query Text:Click the Protocol Button to View the RPE Scale [Exercise] -Ambulation Distance (feet) -Ambulation Distance (meters) [Comments] -Home Oxygen Evaluation Comments [Charges] -Treatment Charges
--- NOTE | 2023-05-23 10:51 | PCRCNOTE ---
HOME O2 EVAL COMPLETED, FAXED TO OFFICE STAFF. PT HAS [facility] EXISTING O2, NO CHANGE MADE ON HOME O2 EVAL.. 2 L WITH ACTIVITY. HAS POC, PULSE DOSE AND HOME CONCENTRATOR.
--- NOTE | 2023-05-25 09:23 | WPDPFTINT ---
PFT Procedure Performed PFT Procedure Performed Spirometry with Pre/Post Bronchodilator Plethysmography (Lung Vol) Diffusing Cap (DLCO) Flow Vol Loop PFT Interpretation This is a pulmonary function test with pre and post-bronchodilator spirometry, plethysmography and diffusing capacity. The test was performed and results interpreted in accordance with the 2019 and 2005 ATS/ERS Task Force guidelines respectively using the Global Lung Function Initiative-2012 reference equations. Patient demonstrated good effort and cooperation. Reproducibility criteria were met. The quality of the pre bronchodilator spirometry maneuver was Grade A and post bronchodilator spirometry maneuver was Grade A. Findings: Spirometry: There is decreased maximal expiratory airflow at low lung volumes. The contour the inspiratory flow tracing is normal. The pre bronchodilator FVC is 1.70 L, 68% predicted. The pre bronchodilator FEV1 is 1.20 L, 63% predicted. The pre bronchodilator FEV1: FVC ratio 71%. The post bronchodilator FVC is 1.81 L, representing a 6% increase. The post bronchodilator FEV1 is 1.39 L, representing a 190 mL increase which corresponds to a 16% increase. The post bronchodilator FEV1: FVC ratio 77%. Plethysmography: The total lung capacity is 3.68 L, 75% predicted. The functional residual capacity is 2.13 L, 76% predicted. The residual volume is 1.86 L, 81% predicted. Diffusing capacity: The diffusing capacity unadjusted for hemoglobin and carboxyhemoglobin is 7.9, 41% predicted. The diffusing capacity adjusted for alveolar volume is 2.86, 68% predicted. In comparison to previous pulmonary function testing on 10/06/2021 the post bronchodilator FVC is unchanged from 1.96 L to 1.81 L. The post bronchodilator FEV1 is unchanged from 1.39 L to 1.39 L. The total lung capacity is unchanged from 3.78 L to 3.68 L. The functional residual capacity is unchanged from 2.37 L to 2.13 L. The residual volume is unchanged from 1.90 L to 1.86 L. The diffusing capacity unadjusted for hemoglobin and carboxyhemoglobin is unchanged from 8.2 to 7.9. The diffusing capacity adjusted for alveolar volume is unchanged from 3.09 to 2.86. Impression: There is a combined obstructive and restrictive ventilatory abnormality. There are no guidelines to assign the severity of obstruction and restriction with a combined abnormality. In my opinion, given the mildly concave expiratory flow tracing, normal FEV1: FVC ratio and mild restrictive abnormality I would state there is a mild obstructive abnormality and a mild restrictive abnormality resulting in a moderate decrease in the FEV1. There is no significant improvement after inhaling a single dose of albuterol as the absolute increase in post bronchodilator FEV1 is less than 200 mL. The diffusing capacity unadjusted for hemoglobin and carboxyhemoglobin is moderately decreased and remains mildly decreased when adjusted for alveolar volume. In comparison to previous pulmonary function testing on 10/06/2021 there has been no significant change in the FVC, FEV1, total lung capacity, functional residual capacity, residual volume or diffusing capacity. Clinical correlation is recommended.
== END 2023-05-23 08:37 | disposition home or self-care (01) ==
PROVIDERS: PCP Family Medicine; Visit Provider Physician Assistant
DX: J84.9 Interstitial pulmonary disease, unspecified (principal); J96.11 Chronic respiratory failure with hypoxia; J44.9 Chronic obstructive pulmonary disease, unspecified; R94.2 Abnormal results of pulmonary function studies
CPT/HCPCS: 71250; 94060; 94618; 94726; 94729

== ENCOUNTER 2023-07-15 13:55 | Emergency (ER) | payer OTHER, SELFPAY ==
[2023-07-15 14:09] VITALS: BP 144/128; PULSE 132; RESP 16; TEMP 37; O2SAT 95
--- NOTE | 2023-07-15 14:53 | ED.UPPEXIN ---
HPI - Extremity Injury (Upper) General Chief Complaint: Extremity Injury, Upper Stated Complaint: left shoulder,hurts,unable to move Time Seen by Provider: 07/15/23 14:53 Source: patient Mode of arrival: ambulatory Limitations: no limitations History of Present Illness HPI narrative: 77 yo F presents with c/o L shoulder pain starting today. 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 Was reaching something today and overreached. [place] pain and pop to L shoulder that caused decreased ROM. Took tylenol at 11am. States after getting to UC pain better and no longer uncomfortable. Pt talkative and laughing. All systems reviewed and negative except as noted above. Related Data Home Medications Medication Instructions Recorded Confirmed atorvastatin 40 mg tablet 40 mg PO DAILY 02/03/20 07/15/23 metoprolol tartrate 50 mg tablet 25 mg PO BID 02/03/20 07/15/23 apixaban 5 mg tablet (Eliquis) 5 mg PO BID 07/28/20 07/15/23 multivitamin (Daily Multi-Vitamin 1 tablet PO DAILY 12/04/20 07/15/23 tablet) losartan 100 mg tablet 100 mg PO QAM 02/01/23 07/15/23 raloxifene 60 mg tablet 60 mg PO DAILY 02/01/23 07/15/23 oxybutynin chloride 5 mg tablet 5 mg PO DAILY 07/15/23 07/15/23 Allergies Allergy/AdvReac Type Severity Reaction Status Date / Time No Known Allergies Allergy Verified 07/15/23 14:25 Review of Systems Review of Systems: CONSTITUTIONAL: Denies fever, chills, or sweats. EYES: Denies visual changes, redness, or discharge. ENT: Denies rhinorrhea, congestion, sore throat, or otalgia. CARDIOVASCULAR: Denies chest pain, palpitations, or edema. RESPIRATORY: Denies cough or dyspnea. GASTROINTESTINAL: Denies abdominal pain, nausea, vomiting, or diarrhea. GENITOURINARY: Denies dysuria or hematuria. SKIN: Denies rash or itching. MUSCULOSKELETAL: Denies back pain, joint pain, or myalgia. Reports L shoulder pain. NEUROLOGIC: Denies headache, numbness, or weakness. PSYCHIATRIC: Denies anxiety or depression. All other systems reviewed are negative, except as documented in HPI. [facility] Past Medical History Medical History Atrial fibrillation Chronic anticoagulation Chronic obstructive pulmonary disease Chronic respiratory failure with hypoxia, on home oxygen therapy Congestive heart failure Echocardiogram August 2019: EF 55-60, moderate pulmonary hypertension with RVSP of 61 biatrial enlargement right greater than left, findings unchanged compared to 2017 Depression Depression with anxiety Follicular lymphoma Hearing loss, bilateral Hypertension Hypothyroidism Interstitial lung disease Morbid (severe) obesity due to excess calories Obstructive sleep apnea on CPAP CPAP of 9 with 2 L bleed in oxygen with last polysomnogram April 2021 Paralysis of left vocal cord Peripheral neuropathy Pre-diabetes Patient's A1c has not been above 6 ever Pulmonary hypertension Moderate pulmonary hypertension noted on echocardiogram 2020 with RVSP of 61 TMJ (temporomandibular joint disorder) Vertigo Surgical History Surgical History History of arthroscopy of right shoulder History of bilateral cataract extraction Family History Family History Sibling Family history of cardiovascular disease Mother Family history of primary malignant neoplasm of liver, Onset Age: 83 Social History Social History Social History: Surrogate medical decision maker: Tyrone Newton, spouse. Code status: Full code. Smoking status: Never smoker Second hand tobacco smoke exposure: Yes Alcohol intake: never Substance use: never Substance use type: does not use Lack of Transportation: No Lack of Food: Never True Current Housing: I Have Housing Concerned About Future Housing: No Difficulty Paying Gas/
== END 2023-07-15 15:11 | disposition home or self-care (01) ==
PROVIDERS: Emergency Provider Nurse Practitioner Family; PCP Family Medicine
DX: S46.912A Strain of unspecified muscle, fascia and tendon at shoulder and upper arm level, left arm, initial encounter (principal); X50.9XXA Other and unspecified overexertion or strenuous movements or postures, initial encounter; I48.91 Unspecified atrial fibrillation; Z79.01 Long term (current) use of anticoagulants; E03.9 Hypothyroidism, unspecified; E66.01 Morbid (severe) obesity due to excess calories; Z68.39 Body mass index [BMI] 39.0-39.9, adult; G47.33 Obstructive sleep apnea (adult) (pediatric); G62.9 Polyneuropathy, unspecified; R73.03 Prediabetes; I27.20 Pulmonary hypertension, unspecified; F41.8 Other specified anxiety disorders
CPT/HCPCS: 99213; G0463

== ENCOUNTER 2023-09-04 13:23 | Observation (INO) | payer OTHER, SELFPAY ==
[2023-09-04] VITALS (27 sets, daily range): BP systolic 126–163; BP diastolic 57–91; PULSE 43–91; RESP 14–27; TEMP 36.3–36.4; O2SAT 93–100
--- NOTE | ~2023-09-04 | CT_ITS ---
EXAMINATION: CTA brain carotid DATE: 09/04/2023 16:53 INDICATION: Cerebrovascular accident. TECHNIQUE: Computed tomographic angiography (CTA) of the head was performed with 100 mL Omnipaque-350 intravenous contrast. CTA of the neck was performed with intravenous contrast. Automated exposure co ntrol and iterative reconstruction technique were employed. The dose-length product was 992.23 mGy-cm . Maximum intensity projection and volume rendered 3D-reconstructions were created by the technAeropost t on a separate workstation. COMPARISON: Head CT 09/04/2023 FINDINGS: HEAD CTA: There are old lacunar infarcts in the bilateral basal ganglia and thalami and peritrigonal white matter. There are scattered areas of low attenuation in the cerebral white matter. There is an infarct in posterior right frontal lobe. There is no intracranial hemorrhage or abnormal mass lesion. There are likely changes of ocular lens replacement surgeries. There is mild mucosal thickening in r ight maxillary sinus. The mastoid air cells are normal. The vertebral arteries are codominant. There is no significant stenosis of basilar artery or the posterior cerebral arteries. There is no signific ant stenosis of the intracranial internal carotid arteries or anterior or middle cerebral arteries. A nterior communicating artery is normal. The posterior communicating arteries are normal. There is no aneurysm. NECK CTA: There are no pathologically enlarged lymph nodes. There is no significant stenosis of the v ertebral arteries. There is plaque in the proximal internal carotid arteries. There is 0% stenosis of the proximal right internal carotid artery relative to normal distal artery lumen diameter (NASCET c riteria). There is 0% stenosis of the proximal left internal carotid artery relative to normal distal artery lumen diameter. There is severe cervical spondylosis. IMPRESSION: 1. Age-indeterminate infarct in the posterior right frontal lobe. 2. Old lacunar infarcts in the bilateral basal ganglia and thalami and peritrigonal white matter. 3. Moderate nonspecific cerebral white matter disease, which likely represents chronic small vessel i schemic disease. 4. No aneurysm or significant intracranial arterial stenosis. 5. 0% stenosis of the proximal internal carotid arteries relative to normal distal artery lumen diame ters (NASCET criteria). Reviewed, dictated and finalized at location E. CARE NURSE IMPRESSION: 1. Age-indeterminate infarct in the posterior right frontal lobe. 2. Old lacunar infarcts in the bilateral basal ganglia and thalami and peritrig onal white matter. 3. Moderate nonspecific cerebral white matter disease, which likely represents chronic small vessel ischemic disease. 4. No aneurysm or significant intracranial arterial stenosis. 5. 0% stenosis of the proximal internal carotid arteries relative to normal dis azucena artery lumen diameters (NASCET criteria).
--- NOTE | ~2023-09-04 | CT_ITS ---
EXAMINATION: CT brain wo con DATE: 09/04/2023 13:48 INDICATION: Transient ischemic episode with having trouble with the fingers of the left hand and un able to drink the left eye. TECHNIQUE: Computed tomography (CT) of the head was performed without intravenous contrast. Sagittal and coronal reconstructions were performed. The mA was adjusted according to patient size. Iterative reconstruction technique was employed. The dose-length product was 605.33 mGy-cm. COMPARISON: head CT dated 02/26/2019 FINDINGS: Small old lacunar infarcts at the bilateral peritrigonal white matter and bilaterally at the anterior internal capsules and heads of the caudate nuclei. Additional moderate scattered white matter hypoat tenuation consistent with chronic small vessel ischemic disease. No acute intracranial hemorrhage, ac elan infarction or abnormal extra axial fluid collection. Symmetric prominence of the sulci consistent with mild age-appropriate diffuse cerebral volume loss. Ventricles are normal and symmetric. No mas s/mass effect. Changes of bilateral intraocular lens replacement. The orbits, paranasal sinuses and m astoid air cells are normal. Intracranial calcified cerebral atherosclerosis is noted. IMPRESSION: 1. A few bilateral small old lacunar infarcts at the basal ganglia and bilateral peritrigonal white m atter. No acute intracranial process. 2. Age-related changes including mild diffuse volume loss and moderate scattered white matter hypoatt enuation consistent with chronic small vessel ischemic disease. Reviewed, dictated and finalized at location A. STIC VIOLENCE ADVOCATE IMPRESSION: 1. A few bilateral small old lacunar infarcts at the basal ganglia and bilatera l peritrigonal white matter. No acute intracranial process. 2. Age-related changes including mild diffuse volume loss and moderate scattere d white matter hypoattenuation consistent with chronic small vessel ischemic di sease.
--- NOTE | ~2023-09-04 | XR_ITS ---
EXAMINATION: XR chest 2V DATE: 09/04/2023 13:53 INDICATION: Fogginess and tongue/speech impairment TECHNIQUE: PA and lateral views of the chest were obtained. COMPARISON: Chest CT dated 05/23/2023 and radiograph dated 12/22/2022 FINDINGS: Cardiomegaly. Pulmonary vascular congestion with mild increased interstitial pattern bilateral lower lungs consistent with mild pulmonary edema. No focal airspace opacities, pleural effusion or pneumoth orax. Surgical clips the right axilla. Right shoulder arthroplasty. S-shaped thoracolumbar scoliosis with moderate spondylosis. IMPRESSION: 1. Likely congestive heart failure with cardiomegaly and mild pulmonary edema in the lower lungs. Reviewed, dictated and finalized at location A. AND GARDEN TECHNICIAN IMPRESSION: 1. Likely congestive heart failure with cardiomegaly and mild pulmonary edema i n the lower lungs.
--- NOTE | ~2023-09-04 | MR_ITS ---
MRI of the brain Clinical History: CVA Technique: Axial and sagittal T1-weighted images were acquired. These were followed by axial T2-weigh tata, diffusion weighted, gradient, and FLAIR images. Findings: There are focal areas of restricted diffusion in the posterior right frontal lobe, as well as a focal area of restricted diffusion in the left periventricular white matter. Findings are compat ible small focal scattered acute infarcts. There is extensive background hyperintense signal abnormal ity throughout the periventricular white matter on FLAIR images. No intracranial hemorrhage evident. No mass lesion evident. Ventricles and subarachnoid spaces are minimally prominent. Orbits are unremarkable. Paranasal sinuse s and mastoid air cells are clear. Major intracranial flow voids are intact. Sagittal midline structures are intact. IMPRESSION: Small focal acute infarcts in the posterior right frontal lobe, as well as focally in the left perive ntricular white matter. Multiple vascular distributions suggests possible proximal embolic showering. Extensive underlying chronic microvascular ischemic change. Reviewed, dictated and finalized at location . OR NET DEVELOPER IMPRESSION: Small focal acute infarcts in the posterior right frontal lobe, as well as foca lly in the left periventricular white matter. Multiple vascular distributions s uggests possible proximal embolic showering. Extensive underlying chronic microvascular ischemic change.
--- NOTE | 2023-09-04 13:30 | ECG_ITS ---
Measurements Intervals [place] Rate: 46 P: VT: 0 QRS: 17 QRSD: 87 T: 22 QT: 440 QTc: 386 Interpretive Statements ATRIAL FIBRILLATION WITH SLOW VENTRICULAR RESPONSE BASELINE ARTIFACT- I, II, V1 ABNORMAL ECG COMPARED TO ECG 11/05/2022 13:28:42 HEART RATE HAS DECREASED Electronically Signed On 09-05-2023 15:03:53 [employer] PILOT by Jose Hodges D.O.
[2023-09-04 13:48] LABS: Basophils Percent Auto 0.4 % (0.2-1.2); Eosinophils Absolute Auto 0.1 K/mm3 (0-0.3); Eosinophils Percent Auto 1.7 % (0-4.4); Hematocrit 35.4 % (37.0-47.0); Hemoglobin 11.3 g/dL (12.0-15.0); Immature Granulocyte Absolute 0.02 K/mm3 (0.00-0.031); Immature Granulocyte Percent A 0.3 % (0-0.5); Lymphocytes Absolute Auto 2.63 K/mm3 (0.9-3.2); Mean Corpuscular HGB Conc 31.9 g/dl (32-36); Mean Corpuscular Hemoglobin 31.7 pg (26-34); Mean Corpuscular Volume 99.2 fl (80-100); Monocytes Absolute Auto 0.5 K/mm3 (0.1-0.6); Monocytes Percent Auto 7.2 % (2.6-8.5); Neutrophils Absolute Auto 3.8 K/mm3 (1.3-6.7); Neutrophils Percent Auto 53.4 % (45.5-73.1); Platelet Count Result 140 k/mm3 (150-375); Red Blood Count 3.57 M/mm3 (4.2-5.4); Red Cell Distribution Width 14.4 % (11.5-14.5); White Blood Count 7.1 K/mm3 (4.5-10.0)
[2023-09-04 13:58] LABS: Alanine Aminotransferase 17 U/L (6-35); Albumin Level 3.9 g/dL (3.5-5.1); Alkaline Phosphatase 50 U/L (38-126); Anion Gap 6 mmol/L (8-16); Aspartate Amino Transferase 28 U/L (14-36); Bilirubin,Total 0.9 mg/dL (0.2-1.3); Blood Urea Nitrogen 24 mg/dL (7-17); Calcium 8.6 mg/dL (8.4-10.2); Carbon Dioxide 29 mmol/L (22-30); Chloride 100 mmol/L (98-107); Estimated CRCL calculation 45 ml/min; Estimated Glomerular Filt Rate 53; Glucose 120 mg/dL (65-110); Potassium 4.2 mmol/L (3.4-5.0); Sodium 135 mmol/L (137-145)
[2023-09-04 13:59] LABS: INR 1.4; Prothrombin Time 18.2 Seconds (11.1-14.7)
[2023-09-04 14:00] LABS: Partial Thromboplastin Time 32.5 SECONDS (22.3-36.8)
[2023-09-04 14:20] LABS: Troponin I 0.076 ng/mL (0.000-0.034)
[2023-09-04 17:14] LABS: Influenza A QL RT-PCR Negative (Negative); Influenza B QL RT-PCR Negative (Negative); RSV RNA, RT-PCR Negative (Negative); SARS-CoV-2 RNA PCR Negative (Negative)
[2023-09-04 17:31] LABS: Troponin I 0.074 ng/mL (0.000-0.034)
--- NOTE | 2023-09-04 19:21 | ED.GENADULT ---
HPI - General Adult General Chief complaint: Neuro Symptoms/Deficit Stated complaint: my brain feels foggy , diff using fingers Time Seen by Provider: 09/04/23 16:12 History of Present Illness HPI narrative: 78-year-old female presenting to the emergency department for evaluation of symptoms concerning for CVA. Patient denies any prior history of CVA but states she suspected she had a stroke yesterday. Patient reports yesterday morning she was having some episodes feeling foggy. The patient denies any associated numbness or weakness with this. This morning patient states she was having some difficulty closing her left eye but this has also since resolved. Upon arrival to the emergency department patient denies any current complaints. Patient does have a history of AFib and is currently Eliquis. Patient denies any prior history of [place]. Related Data Home Medications Medication Instructions Recorded Confirmed atorvastatin 40 mg tablet 40 mg PO DAILY 02/03/20 07/15/23 metoprolol tartrate 50 mg tablet 25 mg PO BID 02/03/20 07/15/23 apixaban 5 mg tablet (Eliquis) 5 mg PO BID 07/28/20 07/15/23 multivitamin (Daily Multi-Vitamin 1 tablet PO DAILY 12/04/20 07/15/23 tablet) losartan 100 mg tablet 100 mg PO QAM 02/01/23 07/15/23 Allergies Allergy/AdvReac Type Severity Reaction Status Date / Time No Known Allergies Allergy Verified 09/04/23 14:31 Review of Systems Review of Systems: All systems reviewed & are unremarkable except as noted in HPI and below PMFSH Past Medical History Medical History Atrial fibrillation Chronic anticoagulation Chronic obstructive pulmonary disease Chronic respiratory failure with hypoxia, on home oxygen therapy Congestive heart failure Echocardiogram August 2019: EF 55-60, moderate pulmonary hypertension with RVSP of 61 biatrial enlargement right greater than left, findings unchanged compared to 2017 Depression Depression with anxiety Follicular lymphoma Hearing loss, bilateral Hypertension Hypothyroidism Interstitial lung disease Morbid (severe) obesity due to excess calories Obstructive sleep apnea on CPAP CPAP of 9 with 2 L bleed in oxygen with last polysomnogram April 2021 Paralysis of left vocal cord Peripheral neuropathy Pre-diabetes Patient's A1c has not been above 6 ever Pulmonary hypertension Moderate pulmonary hypertension noted on echocardiogram 2020 with RVSP of 61 TMJ (temporomandibular joint disorder) Vertigo Surgical History Surgical History History of arthroscopy of right shoulder History of bilateral cataract extraction Family History Family History Sibling Family history of cardiovascular disease Mother Family history of primary malignant neoplasm of liver, Onset Age: 83 Social History Social History Social History: Surrogate medical decision maker: Tyrone Newton, spouse. Code status: Full code. Smoking status: Never smoker Second hand tobacco smoke exposure: Yes Alcohol intake: never Substance use: never Substance use type: does not use Lack of Transportation: No Lack of Food: Never True Current Housing: I Have Housing Concerned About Future Housing: No Difficulty Paying Gas/Electric Bills: No Difficulty Paying for Meds: No Currently Unemployed: No Education: High School Diploma/GED Difficulty w/ Childcare or Family Care: No Living arrangements: with family Additional living arrangements comments: [facility] Occupation/Education: retired Spiritual care concerns: No Agree to blood products: Yes Exam Narrative: APPEARANCE: Well appearing, no pain, no distress, well-nourished. HEAD: normocephalic, atraumatic. EYES: PERRLA/EOMI, conjunctivae clear. NOSE: Normal no drainage EAR
[2023-09-04 19:51] LABS: NT Pro B Type Natriuretic Pept 1250 pg/mL (19.9-100)
--- NOTE | 2023-09-04 19:58 | PM.IMHP ---
H&P: HPI History of Present Illness Date/Time: 09/04/23 19:55 Chief Complaint: Stroke symptoms. Narrative: This is a pleasant 78-year-old female with chronic obstructive pulmonary disease on p.r.n. oxygen, sleep apnea on CPAP, atrial fibrillation on chronic anticoagulation, hypertension, hypothyroidism, anemia, and history of lymphoma who presented to the emergency department for evaluation of stroke symptoms. The patient provides the following history. She is concerned that she may have had a stroke yesterday with symptoms to include ?foggy brain,? mild difficulties with speaking, and dexterity issues of the fingers on her left hand. With further questioning she had a brief episode of diplopia a couple of weeks ago. Today she noticed that she was unable to fully open her left eye and that the eyelid was drooping. She denies current diplopia, vertigo, paresthesias, trouble swallowing, and focal weakness. Vital signs were stable on arrival to the ED.. Labs were significant for a troponin of 0.076 (she has not had any chest pain or discomfort), hemoglobin 11.3, sodium 135, BUN 24, glucose 120, proBNP 1250. CTA of the head and neck showed an age-indeterminate infarct in the posterior right frontal lobe. She is being admitted in this setting for close monitoring and neurology consultation. Review of Systems Review of Systems: Twelve systems were reviewed and are negative except for as per HPI. [facility] Past Medical History Medical History (Updated 09/04/23 @ 23:00 by Smiley Posey PA-C) Atrial fibrillation Chronic anticoagulation Chronic obstructive pulmonary disease Chronic respiratory failure with hypoxia, on home oxygen therapy Congestive heart failure Echocardiogram August 2019: EF 55-60, moderate pulmonary hypertension with RVSP of 61 biatrial enlargement right greater than left, findings unchanged compared to 2017 Depression with anxiety Follicular lymphoma Hearing loss, bilateral Hypertension Hypothyroidism Interstitial lung disease Morbid (severe) obesity due to excess calories Obstructive sleep apnea on CPAP CPAP of 9 with 2 L bleed in oxygen with last polysomnogram April 2021 Paralysis of left vocal cord Peripheral neuropathy Pre-diabetes Patient's A1c has not been above 6. Pulmonary hypertension Moderate pulmonary hypertension noted on echocardiogram 2020 with RVSP of 61 Thrombocytopenia Surgical History Surgical History History of arthroscopy of right shoulder History of bilateral cataract extraction Family History Family History Sibling Family history of cardiovascular disease Mother Family history of primary malignant neoplasm of liver, Onset Age: 83 Social History Social History Social History: Surrogate medical decision maker: Tyrone Newton, spouse. Code status: Full code. Smoking status: Never smoker Second hand tobacco smoke exposure: Yes Alcohol intake: never Substance use: never Substance use type: does not use Do You Feel Safe in your Home?: Yes Lack of Transportation: No Lack of Food: Never True Current Housing: I Have Housing Concerned About Future Housing: No Difficulty Paying Gas/Electric Bills: No Difficulty Paying for Meds: No Currently Unemployed: No Education: High School Diploma/GED Difficulty w/ Childcare or Family Care: No Living arrangements: with family Additional living arrangements comments: [facility] Occupation/Education: retired Spiritual care concerns: No Agree to blood products: Yes Meds Home Medications and Allergies Home Medications Medication Instructions Recorded Confirmed Type atorvastatin 40 mg tablet 40 mg PO DAILY 02/03/20 09/04/23 History apixaban 5 mg tablet (Eliquis) 5 mg PO BID 07/28/20 09/04/23 History multivitamin (Daily
--- NOTE | 2023-09-04 20:20 | ADMGEN ---
This patient, Rhoda Newton, was admitted to IMU Room 204-01. Patient/family oriented to hospital policies and general routines including ID bracelet, bed and alarms, visiting hours, pain management, procedures, bathroom and other care routines, personal items, smoking policy, room service/diet, and visiting hours. Information on how to activate the Rapid Response Team has been discussed. Patient/Family are encouraged to report perceived risks to care and to ask questions if they do not understand what they are told or what they should do.
[2023-09-04 21:12] LABS: Troponin I 0.072 ng/mL (0.000-0.034)
[2023-09-05] VITALS (21 sets, daily range): BP systolic 115–150; BP diastolic 40–78; PULSE 48–96; RESP 20; TEMP 36.2–36.9; O2SAT 92–100
[2023-09-05] MEDS: SERTRALINE HCL 50 MG TABLET 100 MG PO ×2 (00:35→20:15)
[2023-09-05] MEDS: DOXAZOSIN MESYLATE 4 MG TABLET PO ×2 (00:36→20:15)
[2023-09-05] MEDS: FUROSEMIDE 20 MG TABLET PO (00:36)
[2023-09-05] MEDS: amLODIPine BESYLATE 5 MG TABLET PO ×2 (00:36→20:15)
[2023-09-05] MEDS: METOPROLOL TARTRATE 25 MG TABLET PO ×3 (00:37→20:15)
[2023-09-05 05:01] LABS: Hematocrit 33.7 % (37.0-47.0); Mean Corpuscular HGB Conc 32.6 g/dl (32-36); Mean Platelet Volume 10.1 fl (7.4-10.4); Platelet Count Result 138 k/mm3 (150-375); Red Blood Count 3.44 M/mm3 (4.2-5.4); Red Cell Distribution Width 14.4 % (11.5-14.5); White Blood Count 7.2 K/mm3 (4.5-10.0)
[2023-09-05 05:10] LABS: Anion Gap 6 mmol/L (8-16); Blood Urea Nitrogen 22 mg/dL (7-17); Calcium 8.8 mg/dL (8.4-10.2); Carbon Dioxide 29 mmol/L (22-30); Chloride 104 mmol/L (98-107); Estimated CRCL calculation 45 ml/min; Estimated Glomerular Filt Rate 53; Glucose 103 mg/dL (65-110); Magnesium 2.4 mg/dL (1.6-2.3); Potassium 3.9 mmol/L (3.4-5.0); Sodium 139 mmol/L (137-145)
[2023-09-05] MEDS: LEVOTHYROXINE SODIUM 50 MCG TABLET PO (06:52)
[2023-09-05] MEDS: oxyBUTYnin CHLORIDE 5 MG TABLET PO (08:56)
[2023-09-05] MEDS: LOSARTAN POTASSIUM 100 MG TABLET PO (08:57)
[2023-09-05] MEDS: ATORVASTATIN 40 MG TABLET PO (08:57)
[2023-09-05] MEDS: RALOXIFENE HCL (*CHEMO) 60 MG TABLET PO (08:57)
[2023-09-05] MEDS: MULTIVITAMINS THERAPEUTIC TAB (*BKC) 1 TABLET PO (08:57)
[2023-09-05] MEDS: FUROSEMIDE 40 MG TABLET PO (08:57)
--- NOTE | 2023-09-05 09:18 | PCPTNOTE ---
Pt going for MRI this morning. PT evaluation after procedure this morning. Will follow.
--- NOTE | 2023-09-05 10:48 | WPDNEURCNPN ---
Assessment and Plan Assessment and plan (1) Acute cerebrovascular accident: Code(s): I63.9 - Cerebral infarction, unspecified Status: Acute Plan 1. Documented bilateral subcortical lacunar strokes 2. Diabetic neuropathy 3. Negative CTA with no involvement of the major intracranial arteries 4. Continue all the medication as such in addition to the physical therapy for which she is being evaluated. Consult date: 09/05/23 HPI: Rhoda Newton is a 78 year old female Admitted to the hospital through the emergency room where she presented for the concerns of the stroke and with a history that she was feeling intermittently foggy along with the numbness and generalized weakness she also experienced the difficulties in closing her left eye which was resolved by the time she came to the emergency room patient does have ongoing history of atrial fibrillation and has been taking Eliquis on a regular basis. At the time of admission to the ER her medications included atorvastatin 40mg daily metoprolol 50mg each but half a tablet twice a day, apixaban 5mg twice a day in addition to losartan 100mg daily, she is not allergic to any medications. Her past history is consistent with the ongoing diagnosis of atrial fibrillation for which she has been receiving chronic anticoagulation therapy in addition to chronic obstructive pulmonary disease, anxiety with depression, bilateral hearing deficit, interstitial lung disease, obstructive sleep apnea for which she is on CPAP in addition to the paralysis of the left vocal cord and peripheral neuropathy as well. She has undergone bilateral cataract extraction, she is never a smoker or alcohol drinker. Initial exam in the emergency room revealed no significant motor deficit except slight incoordination of the small muscles of the left hand, her lab studies revealed her to be with hemoglobin of 11 WBCs 7.2 estimated GFR of 53 with glucose only 103 and elevated troponin 0.072 least an 0.076 max head and neck CTA documented infarct in the posterior right frontal lobe of undetermined age in addition to the old lacunar infarct bilateral basal ganglia and thalami and peritrigonal white matter in addition to moderate nonspecific white matter disease but no aneurysm or significant intracranial arterial stenosis, head CT scan only documented bilateral small old lacunar infarct to the basal ganglia and bilateral peritrigonal white matter involvement Review of Systems Review of Systems: All systems reviewed & are unremarkable except as noted in HPI and below PMFSH Past Medical History Medical History Atrial fibrillation Chronic anticoagulation Chronic obstructive pulmonary disease Chronic respiratory failure with hypoxia, on home oxygen therapy Congestive heart failure Echocardiogram August 2019: EF 55-60, moderate pulmonary hypertension with RVSP of 61 biatrial enlargement right greater than left, findings unchanged compared to 2017 Depression with anxiety Follicular lymphoma Hearing loss, bilateral Hypertension Hypothyroidism Interstitial lung disease Morbid (severe) obesity due to excess calories Obstructive sleep apnea on CPAP CPAP of 9 with 2 L bleed in oxygen with last polysomnogram April 2021 Paralysis of left vocal cord Peripheral neuropathy Pre-diabetes Patient's A1c has not been above 6. Pulmonary hypertension Moderate pulmonary hypertension noted on echocardiogram 2020 with RVSP of 61 Thrombocytopenia Surgical History Surgical History History of arthroscopy of right shoulder History of bilateral cataract extraction Family History Family History Sibling Family history of cardiovascular disease Mother Family history of primary malignant neoplasm of liver, Onset Age: 83 Social History Social History (Reviewed 09/05/23 @ 10:56 by
--- NOTE | 2023-09-05 11:41 | PC.NURSE ---
Dr. Wilson notified of brain MRI results.
--- NOTE | 2023-09-05 11:57 | WPDNEUROPN ---
Subjective Date/time seen: 09/05/23 11:57 Interval history: Checked with a nerve echocardiogram with a bubble study is being done while she is still on apixaban. Objective Data Vital Signs Vital Signs: Vital Signs - 24 hr 09/04/23 13:26 09/04/23 14:29 09/04/23 14:30 Temperature 36.4 C Pulse Rate 91 46 L 55 L Respiratory Rate 20 18 Blood Pressure 144/82 H 154/77 H Pulse Oximetry 95 99 Oxygen Delivery Nasal Cannula Oxygen Flow Rate 2 09/04/23 15:16 09/04/23 14:31 09/04/23 14:32 Temperature Pulse Rate 60 61 Respiratory Rate 19 26 H Blood Pressure 160/57 H Pulse Oximetry 100 99 99 Oxygen Delivery Nasal Cannula Oxygen Flow Rate 3 09/04/23 14:45 09/04/23 15:00 09/04/23 15:15 Temperature Pulse Rate 51 L 43 L 57 L Respiratory Rate 20 17 16 Blood Pressure 154/91 H Pulse Oximetry 100 93 100 Oxygen Delivery Oxygen Flow Rate 09/04/23 17:58 09/04/23 15:17 09/04/23 15:30 Temperature Pulse Rate 66 55 L 55 L Respiratory Rate 18 17 18 Blood Pressure 154/91 H Pulse Oximetry 97 98 100 Oxygen Delivery Oxygen Flow Rate 09/04/23 15:45 09/04/23 16:00 09/04/23 16:02 Temperature Pulse Rate 55 L 60 52 L Respiratory Rate 17 15 14 Blood Pressure 146/57 H Pulse Oximetry 100 100 100 Oxygen Delivery Oxygen Flow Rate 09/04/23 16:15 09/04/23 16:34 09/04/23 16:59 Temperature Pulse Rate 72 57 L 69 Respiratory Rate 24 H 21 H 16 Blood Pressure Pulse Oximetry 100 100 Oxygen Delivery Oxygen Flow Rate 09/04/23 17:00 09/04/23 17:03 09/04/23 17:15 Temperature Pulse Rate 57 L 68 64 Respiratory Rate 27 H 21 H 20 Blood Pressure 143/72 H Pulse Oximetry 99 Oxygen Delivery Oxygen Flow Rate 09/04/23 17:30 09/04/23 17:45 09/04/23 18:20 Temperature Pulse Rate 73 63 66 Respiratory Rate 23 H 19 22 H Blood Pressure 153/73 H Pulse Oximetry 99 100 Oxygen Delivery Oxygen Flow Rate 09/04/23 19:06 09/04/23 20:18 09/04/23 20:30 Temperature 36.3 C L Pulse Rate 56 L 76 76 Respiratory Rate 19 20 20 Blood Pressure 163/81 H 126/64 Pulse Oximetry 100 97 97 Oxygen Delivery Nasal Cannula Oxygen Flow Rate 3 09/05/23 00:16 09/05/23 00:37 09/05/23 00:00 Temperature 36.4 C Pulse Rate 60 70 70 Respiratory Rate 20 20 Blood Pressure 115/40 L Pulse Oximetry 100 100 Oxygen Delivery CPAP Oxygen Flow Rate 09/05/23 04:00 09/05/23 05:44 09/05/23 07:39 Temperature 36.4 C 36.6 C Pulse Rate 70 69 72 Respiratory Rate 20 20 20 Blood Pressure 140/69 131/69 Pulse Oximetry 100 93 96 Oxygen Delivery CPAP Oxygen Flow Rate 09/05/23 08:56 09/05/23 09:26 09/05/23 08:00 Temperature Pulse Rate 73 Respiratory Rate Blood Pressure Pulse Oximetry 97 97 Oxygen Delivery Nasal Cannula Nasal Cannula Oxygen Flow Rate 2 2 09/05/23 08:00 09/05/23 10:00 09/05/23 10:18 Temperature Pulse Rate 82 70 Respiratory Rate Blood Pressure Pulse Oximetry Oxygen Delivery Nasal Cannula Oxygen Flow Rate 2 09/05/23 11:23 Temperature 36.8 C Pulse Rate 97 Respiratory Rate 16 Blood Pressure 100/63 Pulse Oximetry 92 Oxygen Delivery Oxygen Flow Rate Intake/Output Intake/Output: Intake & Output 09/02/23 09/03/23 09/04/23 09/05/23 23:59 23:59 23:59 23:59 Intake Total 790 Output Total 500 Balance 290 Meds/Results Medications: Active Medications Generic Name Dose Route Start Last Admin Trade Name Freq PRN Reason Stop Dose Admin Acetaminophen 650 mg 09/04/23 22:58 Acetaminophen 325 Mg Tablet PO Q6H PRN Mild Pain (1-3) or Fever Albuterol 2 puff 09/04/23 23:05 Albuterol Sulfate (*Sp) Aerosol 1 Puff INHALATION Q4H PRN Shortness Of Breath Or Wheezing Amlodipine Besylate 5 mg 09/04/23 23:05 09/05/23 00:36 Amlodipine Besylate 5 Mg Tablet PO 5 mg HS ROBIN Administration Atorvastatin Calcium 40 mg 09/05/23 09:00 08/15
--- NOTE | 2023-09-05 14:32 | PM.IMPN ---
Progress Note: A&P Assessment and Plan (1) Acute cerebrovascular accident: Code(s): I63.9 - Cerebral infarction, unspecified Status: Acute (2) Elevated troponin: Code(s): R79.89 - Other specified abnormal findings of blood chemistry Status: Acute (3) Congestive heart failure: Qualifiers: Heart failure chronicity: acute on chronic Heart failure type: unspecified Qualified Code(s): I50.9 - Heart failure, unspecified Code(s): I50.9 - Heart failure, unspecified Status: Acute (4) Atrial fibrillation: Qualifiers: Atrial fibrillation type: unspecified Qualified Code(s): I48.91 - Unspecified atrial fibrillation Code(s): I48.91 - Unspecified atrial fibrillation Status: Acute (5) Chronic obstructive pulmonary disease: Qualifiers: COPD type: unspecified COPD Qualified Code(s): J44.9 - Chronic obstructive pulmonary disease, unspecified Code(s): J44.9 - Chronic obstructive pulmonary disease, unspecified Status: Chronic (6) Obstructive sleep apnea on CPAP: Code(s): G47.33 - Obstructive sleep apnea (adult) (pediatric); Z99.89 - Dependence on other enabling machines and devices Status: Acute (7) Thrombocytopenia: Code(s): D69.6 - Thrombocytopenia, unspecified Status: Acute Plan The patient presented to the emergency department for evaluation of neurologic symptoms which began yesterday as detailed in HPI. Her symptoms have essentially resolved though she still has some drooping of the left eyelid. Labs, imaging, EKG, and all reports were personally reviewed. CTA of the head and neck showed an age-indeterminate but suspected subacute infarct in the posterior right frontal lobe given her symptomatology. She is in chronic atrial fibrillation is anticoagulated; she has not missed any doses of her apixaban. Given new stroke, her apixaban has been held for couple of days before resuming. Brain MR ordered to evaluate the size of the stroke. Continue atorvastatin 40 mg daily. Neurology has been consulted echo ordered , pt continued on oral lasix at her regular dose for CHF Subjective Date/time seen: 09/05/23 14:32 Interval history: 78-year-old female with chronic obstructive pulmonary disease on p.r.n. oxygen, sleep apnea on CPAP, atrial fibrillation on chronic anticoagulation, hypertension, hypothyroidism, anemia, and history of lymphoma who presented to the emergency department for evaluation of stroke symptoms. The patient provides the following history. She is concerned that she may have had a stroke yesterday with symptoms to include ?foggy brain,? mild difficulties with speaking, and dexterity issues of the fingers on her left hand. With further questioning she had a brief episode of diplopia a couple of weeks ago.? CTA of the head and neck showed an age-indeterminate infarct in the posterior right frontal lobe. Pt awaiting MRI head, echo and neurology consult PT/ OT and ST evaluation Pt states she feels better today no numbness in fingers speech is much better Review of Systems Review of Systems: finger numbness and speech impairment Exam Narrative: General:?Well-developed female sitting up in bed in no acute distress.? HEENT:?PERRL, EOMI. Sclera anicteric. Moist mucous membranes. Neck:??Supple. No obvious carotid bruits. Respiratory:?Respirations are nonlabored.?Lung sounds are a bit diminished but are otherwise clear to auscultation. Cardiovascular:?Irregularly irregular rate and rhythm. Gastrointestinal:??Abdomen is soft, nontender, and nondistended with positive bowel sounds. Skin:??Warm and dry.? No rash or lesions on limited exam. Extremities:??No cyanosis, clubbing, or edema. Radial and pedal pulses intact. Negative Ally sign bilaterally. Neurological:??Alert and oriented.? Cranial nerves 2-12 are grossly intact although left eyelid is slightly drooping. No pronator drift. Good strength in upper and lo
[2023-09-05] MEDS: APIXABAN 5 MG TABLET PO (16:56)
--- NOTE | 2023-09-05 22:58 | ECHO_ITS ---
Patient Info Name: Rhoda Newton Age: 78 years : 1945 Gender: Female Ht: 63 in Wt: 220 lbs BSA: 2.16 m2 HR: 62 bpm BP: 140 / 69 mmHg Heart Rhythm: Bradycardia, Atrial Fibrillation Technical Quality: Good Exam Date: 09/05/2023 11:26 AM Exam Location: Echo Lab Patient Status: Outpatient Admit Date: 09/04/2023 Staff Ordering Physician: Smiley Posey PA-C Airport Planner: Smith Werner RDCS Attending Provider: Reed Hoff MD Referring Physician: Taty GUERRIER; Exam Type: CA echo doppler w bubble study Study Info Indications - stroke, a fib Complete two-dimensional, color flow and Doppler transthoracic echocardiogram is performed with agitated saline. Summary 1. Left ventricular chamber dimension is normal. 2. Left ventricular systolic function is normal, estimated at 60-65%. 3. There is no increased left ventricular wall thickness. 4. The left ventricular diastolic function is abnormal. 5. Right ventricular chamber dimension is mildly enlarged. 6. Left atrial chamber dimension is severely enlarged. 7. Right atrial chamber dimension is severely enlarged. 8. There is mild to moderate mitral valve regurgitation. 9. There is moderate tricuspid valve regurgitation. 10. Moderate pulmonary hypertension, estimated pulmonary arterial systolic pressure is 56 mmHg. Left Ventricle Left ventricular chamber dimension is normal. Left ventricular systolic function is normal, estimated at 60-65%. There is no increased left ventricular wall thickness. The left ventricular diastolic function is abnormal. Right Ventricle Right ventricular chamber dimension is mildly enlarged. Right ventricular systolic function is normal. Left Atria Left atrial chamber dimension is severely enlarged. Right Atria Right atrial chamber dimension is severely enlarged. Atrial Septum Intact interatrial septum visualized by color flow and agitated saline imaging. Aortic Valve The aortic valve is trileaflet. There is mild aortic valve sclerosis. There is no aortic valve stenosis. There is trace aortic valve regurgitation. Pulmonic Valve The pulmonic valve is normal. There is no pulmonic valve stenosis. There is trace pulmonic regurgitation. Mitral Valve The mitral valve has normal leaflets. There is no mitral valve stenosis. There is mild to moderate mitral valve regurgitation. Tricuspid Valve The tricuspid valve leaflets are normal. There is no significant tricuspid valve stenosis. There is moderate tricuspid valve regurgitation. Moderate pulmonary hypertension, estimated pulmonary arterial systolic pressure is 56 mmHg. Pericardium/Pleural The pericardium appears normal. There is no pericardial effusion. Inferior Vena Cava Normal inferior vena cava with >50% collapse upon inspiration consistent with normal right atrial pressure, 10 mmHg. Aorta The aortic root size at the sinus of Valsalva is normal. Left Ventricular Outflow Tract Name Value Normal LVOT 2D LVOT Diameter 1.6 cm LVOT Doppler LVOT Peak Gradient 3 mmHg LVOT Mean Gradient 2 mmHg LVOT VTI 31 cm LVOT VTI/AV VTI Ratio
--- NOTE | 2023-09-06 00:01 | PC.NURSE ---
Patient received to room 261 from IMU. Report received from EVELYN Diaz.
--- NOTE | 2023-09-06 00:34 | PC.NURSE ---
This patient, Rhoda Newton, was transferred to [261 ] on 09/06/23 at 0000. Personal belongings sent with patient. Report given to [Ashly owens ]. Appropriate documentation sent with patient.
[2023-09-06 04:00] VITALS: PULSE 45
[2023-09-06 05:50] LABS: Hematocrit 33.8 % (37.0-47.0); Hemoglobin 10.5 g/dL (12.0-15.0); Mean Corpuscular HGB Conc 31.1 g/dl (32-36); Mean Corpuscular Hemoglobin 31.7 pg (26-34); Mean Corpuscular Volume 102.1 fl (80-100); Mean Platelet Volume 10.2 fl (7.4-10.4); Platelet Count Result 127 k/mm3 (150-375); Red Blood Count 3.31 M/mm3 (4.2-5.4); Red Cell Distribution Width 14.6 % (11.5-14.5); White Blood Count 8.1 K/mm3 (4.5-10.0)
[2023-09-06] MEDS: LEVOTHYROXINE SODIUM 50 MCG TABLET PO (05:55)
[2023-09-06 05:58] LABS: Potassium 3.7 mmol/L (3.4-5.0)
[2023-09-06 05:59] LABS: Anion Gap 6 mmol/L (8-16); Blood Urea Nitrogen 22 mg/dL (7-17); Calcium 8.6 mg/dL (8.4-10.2); Carbon Dioxide 27 mmol/L (22-30); Chloride 101 mmol/L (98-107); Estimated CRCL calculation 50 ml/min; Estimated Glomerular Filt Rate 60; Glucose 115 mg/dL (65-110); Sodium 134 mmol/L (137-145)
[2023-09-06 07:26] VITALS: BP 139/61; PULSE 60; RESP 16; TEMP 36.4; O2SAT 99
[2023-09-06 08:00] VITALS: PULSE 56
[2023-09-06 10:30] VITALS: O2SAT 99
[2023-09-06] MEDS: MULTIVITAMINS THERAPEUTIC TAB (*BKC) 1 TABLET PO (10:33)
[2023-09-06] MEDS: ASPIRIN 81 MG ENTERIC TABLET PO (10:33)
[2023-09-06] MEDS: FUROSEMIDE 40 MG TABLET PO (10:33)
[2023-09-06 10:34] VITALS: PULSE 80
[2023-09-06] MEDS: ATORVASTATIN 40 MG TABLET PO (10:34)
[2023-09-06] MEDS: METOPROLOL TARTRATE 25 MG TABLET PO (10:34)
[2023-09-06] MEDS: oxyBUTYnin CHLORIDE 5 MG TABLET PO (10:34)
[2023-09-06] MEDS: LOSARTAN POTASSIUM 100 MG TABLET PO (10:34)
[2023-09-06] MEDS: APIXABAN 5 MG TABLET PO (10:34)
[2023-09-06] MEDS: RALOXIFENE HCL (*CHEMO) 60 MG TABLET PO (10:35)
--- NOTE | 2023-09-06 11:57 | WPDNEUROPN ---
Subjective Date/time seen: 09/06/23 11:57 Interval history: 78 years old with documented bilateral subcortical lacunar stroke in addition to the diabetic neuropathy, negative CTA, underwent echocardiogram which documented severely enlarged left atrial chamber and the right atrial chamber with mild to moderate mitral valve regurgitation and tricuspid regurgitation will continue on apixaban 5mg twice a day and her repeat neurological examination is unchanged. Objective Data Vital Signs Vital Signs: Vital Signs - 24 hr 09/05/23 12:00 09/05/23 13:06 09/05/23 12:00 Temperature Pulse Rate 51 L Respiratory Rate Blood Pressure Pulse Oximetry 92 Oxygen Delivery Nasal Cannula Room Air Oxygen Flow Rate 2 09/05/23 14:00 09/05/23 15:43 09/05/23 16:00 Temperature 36.9 C Pulse Rate 72 51 L 48 L Respiratory Rate 20 Blood Pressure 130/46 L Pulse Oximetry 100 Oxygen Delivery Oxygen Flow Rate 09/05/23 20:12 09/05/23 20:15 09/05/23 20:00 Temperature 36.7 C Pulse Rate 64 74 72 Respiratory Rate 20 Blood Pressure 150/50 H Pulse Oximetry 98 Oxygen Delivery Oxygen Flow Rate 09/05/23 20:00 09/05/23 23:21 09/05/23 23:29 Temperature 36.2 C L Pulse Rate 72 58 L 61 Respiratory Rate 20 20 Blood Pressure 138/70 Pulse Oximetry 98 95 Oxygen Delivery Nasal Cannula Oxygen Flow Rate 2 09/05/23 22:00 09/06/23 04:00 09/06/23 07:26 Temperature 36.4 C Pulse Rate 96 45 L 60 Respiratory Rate 16 Blood Pressure 139/61 Pulse Oximetry 99 Oxygen Delivery Autopap Oxygen Flow Rate 09/06/23 10:34 09/06/23 10:30 Temperature Pulse Rate 80 Respiratory Rate Blood Pressure Pulse Oximetry 99 Oxygen Delivery Nasal Cannula Oxygen Flow Rate 2 Intake/Output Intake/Output: Intake & Output 09/03/23 09/04/23 09/05/23 09/06/23 23:59 23:59 23:59 23:59 Intake Total 2420 510 Output Total 501 200 Balance 1919 310 Meds/Results Medications: Active Medications Generic Name Dose Route Start Last Admin Trade Name Freq PRN Reason Stop Dose Admin Acetaminophen 650 mg 09/04/23 22:58 Acetaminophen 325 Mg Tablet PO Q6H PRN Mild Pain (1-3) or Fever Albuterol 2 puff 09/04/23 23:05 Albuterol Sulfate (*Sp) Aerosol 1 Puff INHALATION Q4H PRN Shortness Of Breath Or Wheezing Amlodipine Besylate 5 mg 09/04/23 23:05 09/05/23 20:15 Amlodipine Besylate 5 Mg Tablet PO 5 mg HS ROBIN Administration Apixaban 5 mg 09/05/23 17:00 09/06/23 10:34 Apixaban 5 Mg Tablet PO 5 mg BID ROBIN Administration Aspirin 81 mg 09/06/23 09:00 09/06/23 10:33 Aspirin 81 Mg Enteric Tablet PO 81 mg QAM ROBIN Administration Atorvastatin Calcium 40 mg 09/05/23 09:00 09/06/23 10:34 Atorvastatin 40 Mg Tablet PO 40 mg DAILY ROBIN Administration Doxazosin Mesylate 4 mg 09/04/23 23:05 09/05/23 20:15 Doxazosin Mesylate 4 Mg Tablet PO 4 mg HS ROBIN Administration Furosemide 40 mg 09/05/23 09:00 09/06/23 10:33 Furosemide 40 Mg Tablet PO 40 mg QAM ROBIN Administration Furosemide 20 mg 09/06/23 14:00 Furosemide 20 Mg Tablet PO 1400 ROBIN Levothyroxine Sodium 50 mcg 09/05/23 06:30 09/06/23 05:55 Levothyroxine Sodium 50 Mcg Tablet PO 50 mcg DAILY@0630 ROBIN Administration Losartan Potassium 100 mg 09/05/23 09:00 09/06/23 10:34 Losartan Potassium 100 Mg Tablet PO 100 mg QAM ROBIN Administration Metoprolol Tartrate 25 mg 09/04/23 23:05 09/06/23 10:34 Metoprolol Tartrate 25 Mg Tablet PO 25 mg Q12HR ROBIN Administration Multivitamins Therapeutic 1 tablet 09/05/23 09:00 09/06/23 10:33 Multivitamins Therapeutic Tab (*Bkc) PO 1 tablet DAILY ROBIN Administration Oxybutynin Chloride 5 mg 09/05/23 09:00 09/06/23 10:34 Oxybutynin Chloride 5 Mg Tablet PO 5 mg DAILY ROBIN Administration Perflutren Lipid Microsphere 0 ml 09/04/23 22:57 Perflutren Lipid Micr
[2023-09-06 12:00] VITALS: PULSE 61
--- NOTE | 2023-09-06 12:19 | PM.DS ---
DS: Admitting Diagnosis Discharge Date 09/06/2023 Admitting Diagnosis Stroke symptoms DS: Discharge Diagnosis Discharge Diagnosis (1) Acute cerebrovascular accident: Code(s): I63.9 - Cerebral infarction, unspecified Status: Acute (2) Elevated troponin: Code(s): R79.89 - Other specified abnormal findings of blood chemistry Status: Acute (3) Congestive heart failure: Qualifiers: Heart failure chronicity: acute on chronic Heart failure type: unspecified Qualified Code(s): I50.9 - Heart failure, unspecified Code(s): I50.9 - Heart failure, unspecified Status: Acute (4) Atrial fibrillation: Qualifiers: Atrial fibrillation type: unspecified Qualified Code(s): I48.91 - Unspecified atrial fibrillation Code(s): I48.91 - Unspecified atrial fibrillation Status: Acute (5) Chronic obstructive pulmonary disease: Qualifiers: COPD type: unspecified COPD Qualified Code(s): J44.9 - Chronic obstructive pulmonary disease, unspecified Code(s): J44.9 - Chronic obstructive pulmonary disease, unspecified Status: Chronic (6) Obstructive sleep apnea on CPAP: Code(s): G47.33 - Obstructive sleep apnea (adult) (pediatric); Z99.89 - Dependence on other enabling machines and devices Status: Acute (7) Thrombocytopenia: Code(s): D69.6 - Thrombocytopenia, unspecified Status: Acute Plan The patient presented to the emergency department for evaluation of neurologic symptoms which began yesterday as detailed in HPI. Her symptoms have essentially resolved though she still has some drooping of the left eyelid. Labs, imaging, EKG, and all reports were personally reviewed. CTA of the head and neck showed an age-indeterminate but suspected subacute infarct in the posterior right frontal lobe given her symptomatology. She is in chronic atrial fibrillation is anticoagulated; she has not missed any doses of her apixaban. Given new stroke, her apixaban has been held for couple of days before resuming. Brain MR ordered to evaluate the size of the stroke. Continue atorvastatin 40 mg daily. Neurology has been consulted echo ordered. DS: Summary Hospital Course Hospital Course: Pt awaiting MRI head, echo and neurology consult PT/ OT and ST evaluation Pt states she feels better today no numbness in fingers speech is much better MRI showsSmall focal acute infarcts in the posterior right frontal lobe, as well as focally in the left periventricular white matter. Multiple vascular distributions suggests possible proximal embolic showering.Extensive underlying chronic microvascular ischemic change.pt seen by neurology see recommendation 78 years old with documented bilateral subcortical lacunar stroke in addition to the diabetic neuropathy, negative CTA, underwent echocardiogram which documented severely enlarged left atrial chamber and the right atrial chamber with mild to moderate mitral valve regurgitation and tricuspid regurgitation will continue on apixaban 5mg twice a day. ok to DC today. Time Spent with Patient Time attestation: Total time spent providing and/or coordinating discharge services:40 minutes on day of DC Exam Narrative: General:?Well-developed female sitting up in bed in no acute distress.? HEENT:?PERRL, EOMI. Sclera anicteric. Moist mucous membranes. Neck:??Supple. No obvious carotid bruits. Respiratory:?Respirations are nonlabored.?Lung sounds are a bit diminished but are otherwise clear to auscultation. Cardiovascular:?Irregularly irregular rate and rhythm. Gastrointestinal:??Abdomen is soft, nontender, and nondistended with positive bowel sounds. Skin:??Warm and dry.? No rash or lesions on limited exam. Extremities:??No cyanosis, clubbing, or edema. Radial and pedal pulses intact. Negative Ally sign bilaterally. Neurological:??Alert and oriented.? Cranial nerves 2-12 are grossly intact although left eyelid is slightly drooping
== END 2023-09-06 13:40 | disposition home or self-care (01) ==
LOC: ANHED 19:26 → ANHIMU 19:37 → ANH2MED 09-06 00:18
PROVIDERS: Family Medicine; Physician Assistant; Admitting Provider Internal Medicine; Emergency Provider Emergency Medicine; PCP Family Medicine; Visit Provider Internal Medicine
DX: I63.9 Cerebral infarction, unspecified (principal); I11.0 Hypertensive heart disease with heart failure; I50.9 Heart failure, unspecified; I48.91 Unspecified atrial fibrillation; J44.9 Chronic obstructive pulmonary disease, unspecified; J96.11 Chronic respiratory failure with hypoxia; Z99.81 Dependence on supplemental oxygen; G47.33 Obstructive sleep apnea (adult) (pediatric); Z99.89 Dependence on other enabling machines and devices; R90.82 White matter disease, unspecified; J84.9 Interstitial pulmonary disease, unspecified; D69.6 Thrombocytopenia, unspecified; R29.701 NIHSS score 1; D64.9 Anemia, unspecified; E11.40 Type 2 diabetes mellitus with diabetic neuropathy, unspecified; I08.1 Rheumatic disorders of both mitral and tricuspid valves; J38.01 Paralysis of vocal cords and larynx, unilateral; E03.9 Hypothyroidism, unspecified; F41.8 Other specified anxiety disorders; Z20.822 Contact with and (suspected) exposure to COVID-19; E66.01 Morbid (severe) obesity due to excess calories; Z68.38 Body mass index [BMI] 38.0-38.9, adult; Z79.01 Long term (current) use of anticoagulants; Z79.51 Long term (current) use of inhaled steroids; Z79.899 Other long term (current) drug therapy; Z86.73 Personal history of transient ischemic attack (TIA), and cerebral infarction without residual deficits; Z85.72 Personal history of non-Hodgkin lymphomas
CPT/HCPCS: 36415; 70450; 70496; 70498; 70551; 71046; 80048; 80053; 83735; 83880; 84443; 84484; 85025; 85027; 85610; 85730; 87637; 92523; 93005; 93306; 96375; 97161; 97165; 99285; A9270; G0378; Q9967

== ENCOUNTER 2023-11-22 13:05 | Outpatient (CLI) | payer OTHER, SELFPAY ==
--- NOTE | 2023-11-27 10:07 | WPDSIXMINUTE ---
Six Minute Walk Procedure Procedure Performed Pulmonary Stress Test (6 min walk) Six Minute Walk Six Minute Walk: This is a 6 minute walk test. The test was performed and interpreted in accordance with the 2014 ERS/ATS task force guidelines. Of note, the patient used to wheeled walker and 3 L nasal cannula for this test. Findings: The patient's 3 L NC rest oxygen saturation measured by pulse oximetry was 95% and heart rate was 69 bpm. Patient ambulated for 152 meters and oxygen saturation remained 89 to 96%. Heart rate at the end of the study was 74 bpm. The patient Did not have rest or exertional hypoxemia with 3 L nasal cannula. There are no prior studies for comparison.
== END 2023-11-22 13:06 | disposition home or self-care (01) ==
LOC: ANHPFT 13:07
PROVIDERS: Visit Provider Physician Assistant
DX: J44.9 Chronic obstructive pulmonary disease, unspecified (principal)
CPT/HCPCS: 94618

== ENCOUNTER 2024-02-21 13:45 | Outpatient (RCR) | payer OTHER, SELFPAY ==
[2023-11-21 15:28] VITALS: PULSE 52
== END 2024-02-21 17:04 | disposition home or self-care (01) ==
LOC: ANHCPREHAB 13:45
PROVIDERS: Visit Provider Internal Medicine Critical Care Medicine
DX: J44.9 Chronic obstructive pulmonary disease, unspecified (principal)
CPT/HCPCS: 94625

== ENCOUNTER 2024-03-11 14:53 | Outpatient (CLI) | payer OTHER, SELFPAY ==
--- NOTE | 2024-03-11 16:27 | WPDSIXMINUTE ---
Six Minute Walk Procedure Procedure Performed Pulmonary Stress Test (6 min walk) Six Minute Walk Six Minute Walk: This is a 6 minute walk test. The test was performed and interpreted in accordance with the 2014 ERS/ATS task force guidelines. Of note the patient perform this testing on 3 L nasal cannula with a walking aid. Findings: The patient's resting 3 L nasal cannula oxygen saturation measured by pulse oximetry was 97% and heart rate was 56 bpm. Patient ambulated for 183 meters and oxygen saturation remained 92 to 98%. Heart rate at the end of the study was 106 bpm. The patient did not have hypoxemia at rest or with ambulation while using 3 L nasal cannula oxygen. There are no prior studies for comparison.
== END 2024-03-11 14:54 | disposition home or self-care (01) ==
LOC: ANHPFT 14:55
PROVIDERS: PCP Nurse Practitioner Family; Visit Provider Physician Assistant
DX: J44.9 Chronic obstructive pulmonary disease, unspecified (principal)
CPT/HCPCS: 94618

== ENCOUNTER 2024-04-16 15:07 | Outpatient (CLI) | payer OTHER, SELFPAY ==
--- NOTE | ~2024-04-16 | XR_ITS ---
XR hip RT min 2V 04/16/2024 15:39 Indication: Right hip pain Procedure: 2 views right hip Comparison: 11/22/2019 Findings: Study limited due to patient body habitus. Mild osteoarthritis. There is heterotopic ossifi cation adjacent to the greater trochanter. No acute fracture or traumatic malalignment. No significan t soft tissue abnormality. Impression: 1: Mild osteoarthritis of the right hip. Reviewed, dictated and finalized at location B. Impression: 1: Mild osteoarthritis of the right hip.
--- NOTE | ~2024-04-16 | XR_ITS ---
EXAMINATION: XR lumbar spine 2-3V DATE: 04/16/2024 15:39 INDICATION: Low back pain, unspecified. TECHNIQUE: 3 views of lumbar spine on 4 radiographs were obtained. COMPARISON: None. FINDINGS: There is 18 degrees levoscoliosis of thoracolumbar spine. There is 3 mm retrolisthesis of L 1 on L2 and L2 on L3. There is mild chronic anterior wedging of T12 vertebral body. There is severely decreased disc height at T11-T12, moderately decreased disc height at T12-L1, and severely decreased disc height from L1-L2 through L5-S1 with endplate remodeling. There is multilevel severe facet join t osteoarthritis. IMPRESSION: 1. Severe lumbar spondylosis. 2. Thoracolumbar levoscoliosis. Reviewed, dictated and finalized at location A.
== END 2024-04-16 15:08 | disposition home or self-care (01) ==
PROVIDERS: PCP Nurse Practitioner Family; Visit Provider Nurse Practitioner Family
DX: M47.896 Other spondylosis, lumbar region (principal); M16.11 Unilateral primary osteoarthritis, right hip
CPT/HCPCS: 72100; 73502

== ENCOUNTER 2024-06-26 14:28 | Outpatient (CLI) | payer OTHER, SELFPAY ==
--- NOTE | ~2024-06-26 | MM_ITS ---
EXAMINATION: MM screening grant BI w fabrizio HISTORY: Screening mammogram TECHNIQUE: Craniocaudal and mediolateral oblique 3-D tomosynthesis images were obtained and synthetic 2-D images were generated. CAD analysis was submitted and interpreted. COMPARISON: 07/20/2022, 07/19/2021 BREAST PARENCHYMAL COMPOSITION:Not Dense. There are scattered areas of fibroglandular density. FINDINGS: No suspicious mass, calcification, or architectural distortion are identified in either maddie ast to suggest malignancy. There has been no suspicious interval change. IMPRESSION: No mammographic evidence of malignancy. Recommend routine screening mammography in one year. BI-RADS Category 1: Negative Reviewed, dictated and finalized at location . SCALER
== END 2024-06-26 14:29 | disposition home or self-care (01) ==
LOC: ANHIMG 14:29
PROVIDERS: PCP Nurse Practitioner Family; Visit Provider Nurse Practitioner Family
DX: Z12.31 Encounter for screening mammogram for malignant neoplasm of breast (principal)
CPT/HCPCS: 77063; 77067

== ENCOUNTER 2024-07-23 12:52 | Outpatient (CLI) | payer OTHER, SELFPAY ==
--- NOTE | 2024-07-23 15:00 | NEURO_ITS ---
Impression: # Complains of numbness and pain of right hand. ? # Right moderate Carpal Tunnel Syndrome. ? # No ulnar neuropathy. ? # Needle/EMG exam mildly abnormal in R APB. Nerve Conduction Studies Anti Sensory Summary Table ?Stim Site NR Peak (ms) P-T Amp (?V) Site1 Site2 Delta-P (ms) Dist (cm) Konstantin (m/s) Right Median Anti Sensory (2-3nd Digit) Wrist ? 7.2 26.2 Wrist 2-3nd Digit 7.2 14.0 19 Wrist ? 6.5 10.8 Wrist 2-3nd Digit 7.2 14.0 19 Right Radial Anti Sensory (Base 1st Digit) Wrist ? 2.9 15.7 Wrist Base 1st Digit 2.9 0.0 Right Ulnar Anti Sensory (5th Digit) Wrist ? 2.4 38.7 Wrist 5th Digit 2.4 14.0 58 Motor Summary Table ?Stim Site NR Onset (ms) O-P Amp (mV) Site1 Site2 Delta-0 (ms) Dist (cm) Konstantin (m/s) Right Median Motor (Abd Poll Brev) Wrist ? 5.2 1.9 Elbow Wrist 4.8 27.0 56 Elbow ? 10.0 1.2 Right Ulnar Motor (Abd Dig Minimi) Wrist ? 2.6 8.0 A Elbow Wrist 4.4 25.0 57 A Elbow ? 7.0 5.2 F Wave Studies ?NR F-Lat (ms) L-R F-Lat (ms) Right Median (Mrkrs) (Abd Poll Brev) ? 28.83 Right Ulnar (Mrkrs) (Abd Dig Min) ? 25.78 EMG ?Side Muscle Nerve Root Ins Act Fibs Amp Dur Recrt Comment Right 1stDorInt Ulnar C8-T1 Nml Nml Nml Nml Nml Right Ext Indicis Radial (Post Int) C7-8 Nml Nml Nml Nml Nml Right Ext Digitorum Radial (Post Int) C7-8 Nml Nml Nml Nml Nml Right BrachioRad Radial C5-6 Nml Nml Nml Nml Nml Right PronatorTeres Median C6-7 Nml Nml Nml Nml Nml Right Abd Poll Brev Median C8-T1 Nml Nml Nml >12ms +1 Right ABD Dig Min Ulnar C8-T1 Nml Nml Nml Nml Nml MTDD
== END 2024-07-23 12:53 | disposition home or self-care (01) ==
PROVIDERS: PCP Nurse Practitioner Family; Visit Provider Nurse Practitioner Family
DX: R20.0 Anesthesia of skin (principal); R20.2 Paresthesia of skin; G56.01 Carpal tunnel syndrome, right upper limb
CPT/HCPCS: 95886; 95909

== ENCOUNTER 2024-12-25 10:55 | Outpatient (CLI) | payer OTHER, SELFPAY ==
--- NOTE | ~2024-12-25 | US_ITS ---
Limited Abdominal Sonogram: Real-time sonographic imaging of the right upper quadrant was performed. Clinical History: Right upper quadrant pain Findings: The liver appears mildly heterogeneous with no evidence of mass lesion or bile duct dilata tion. Main portal vein demonstrates normal direction of flow. The gallbladder is well distended, and appears normal with no evidence of gallstone or wall thickening. The common bile duct measures 3 mm. The visualized pancreas, aorta, and IVC are unremarkable. Impression: Possible cirrhotic change of the liver. Reviewed, dictated and finalized at location M. Impression: Possible cirrhotic change of the liver.
--- OUTSIDE RECORDS SUMMARY | 2024-12-25 11:19 | XMS_ITS | Referral Summary ---
Author Organization [facility] [address] Address [address] [place] [address] Care Team Providers Care Fixture Designer Name Role Phone Ilsa Garrett MD Primary Care Provider [phone] Macy Cassidy MD Unavailable [phone] Allergies No known active allergies Medications albuterol HFA (PROVENTIL HFA,VENTOLIN HFA) 90 mcg/actuation inhaler Inhale 2 puffs every 6 (six) hours as needed for wheezing Active amLODIPine (NORVASC) 5 mg tablet Take 1 tablet (5 mg total) by mouth daily Active doxazosin (CARDURA) 4 mg tablet Take 1 tablet (4 mg total) by mouth nightly Active furosemide (LASIX) 40 mg tablet Take 1 tablet (40 mg total) by mouth daily Active levothyroxine (SYNTHROID, LEVOTHROID) 50 mcg tablet Take 1 tablet (50 mcg total) by mouth daily Active losartan (COZAAR) 100 mg tablet Take 1 tablet (100 mg total) by mouth daily Active sertraline (ZOLOFT) 100 mg tablet Take 1 tablet (100 mg total) by mouth daily Active multivitamin with minerals tablet Take 1 tablet by mouth daily Active furosemide (LASIX) 20 mg tablet Take 1 tablet (20 mg total) by mouth daily Take one tablet in the afternoon 90 tablet 2 05/04/20 21 Active raloxifene (EVISTA) 60 mg tablet 08/25/19 23 Active cyclobenzaprine (FLEXERIL) 5 mg tablet TAKE 1 TABLET BY MOUTH THREE TIMES A DAY NEEDED FOR MUSCLE SPASM 03/05/20 24 Active atorvastatin (LIPITOR) 40 mg tablet TAKE 1 TABLET BY MOUTH EVERY DAY 90 tablet 2 06/17/20 24 Active aspirin 81 mg enteric coated tablet Take 1 tablet (81 mg total) by mouth daily Active apixaban (Eliquis) 5 mg tablet TAKE 1 TABLET BY MOUTH TWICE A DAY 180 tablet 2 10/25/19 25 Active metoprolol tartrate (LOPRESSOR) 25 mg immediate release tabletIndication s:Persistent atrial fibrillation (HCC),Bradycardi a TAKE 1 TABLET BY MOUTH TWICE A DAY 180 tablet 1 12/12/19 25 Active metoprolol tartrate (LOPRESSOR) 25 mg immediate release tabletIndication s:Persistent atrial fibrillation (HCC),Bradycardi a TAKE 1 TABLET BY MOUTH TWICE A DAY 180 tablet 1 06/17/20 24 025 Discontinued Active Problems Problem Noted Date Diagnosed Date Coronary artery disease invo lving [place] coronary artery of [place] heart without angina pectoris 08/01/2024 Chronic heart failure with preserved ejection fr action 08/01/2024 Platelets decreased 03/27/2024 Anemia, unspecified 07/31/2023 Lethargy 07/31/2023 JACKSON (dyspnea on exertion) 01/29/2023 Preoperative cardiovascular examination 01/30/20 23 Hypercholesterolemia 09/16/2020 Abnormal stress test 01/27/2020 Other emphysema 06/21/2018 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 Morbid obesity with BMI of 40.0-44.9, adult 11/2016 Pulmonary HTN 07/17/2017 Assessment & Plan (07/17/2017 5:48 PM ATTENDING AMBULATORY CARE): Echo showed pulmonary hypertension with RV enlargement and hypokinesis, RVSP of 70 mmHg. Probably from sleep apnea, with perhaps some contribution of COPD and chronic diastolic dysfunction/diastolic CHF Essential hypertension 05/11/2017 Assessment & Plan (07/17/2017 5:47 PM ATTENDING AMBULATORY CARE): Hypertension is treated and at goal. Persistent atrial fibrillation 05/11/2017 Assessment & Plan (07/17/2017 5:47 PM ATTENDING AMBULATORY CARE): Recently found to have AFib with a controlled rate as an incidental finding. Tolerating Eliquis with no bleeding. Discussed whether not to proceed with cardioversion. The patient's symptoms of dyspnea and fatigue started a year or two prior to her admission, when she was known to be in NSR. I think her chronic JACKSON is related to her morbid obesity and perhaps some lung dz. We actually have little to gain by attempting cardioversion and recommend we continue it rate control anticoagulation strategy--although we could give it a try and see if CV made any difference. The patient does not have any great desire to proceed with cardioversion. 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 History of chemotherapy. Resolved Problems Problem Noted Date Diagnosed Date Resolved Date Bradycardia 01/27/2020 01/12/2022 Chronic diastolic CHF (conge stive heart failure) 01/27/2020 08/01/2024 Chest tightness 06/21/2018 12/25/2018 Rales 07/17/2017 01/12/2022 Assessment & Plan (07/17/2017 5:48 PM ATTENDING AMBULATORY CARE): Does have rales in the lower lobes on exam today, improved but do not resolve with coughing. Wonder she does have some underlying diastolic heart failure? Diastolic dysfunction without heart failure 05/11/2017 01/12/2022 Immunizations Immunization Administration Dates Next Due Influenza, Quad, Adjuvantated, Intramuscular Influenza, Trivalent, High D ose, Split, Preservative Free, Intramuscular 07/08/2019 Influenza, Unspecified 05/28/2017 Pneumococcal Conjugate, Unspecified 05/28/2016 ZOSTER LIVE 05/28/2016 Social History Tobacco Use Types Packs/Day Years Used Date Smoking Tobacco: Never Smokeless Tobacco: Never Alcohol Use Standard Drinks/Week Comments No 0 (1 standard drink = 0.6 oz pur e alcohol) Comments Unknown Sex and Gender Information Value Date Recorded Sex Assigned at Not on file Legal Sex Female 12:44 PM ATTENDING AMBULATORY CARE Gender Identity Female 03/31/2021 2:26 PM CDT Sexual Orientation Straight 03/31/2021 2: 26 PM CDT Last Filed Vital Signs Vital Sign Reading Time Taken Comments Blood Pressure 132/68 08/01/2024 1:11 PM ATTENDING AMBULATORY CARE Pulse 61 08/01/2024 1:11 PM ATTENDING AMBULATORY CARE Temperature 36.5 C (97.7 F) 07/01/2024 1:13 PM ATTENDING AMBULATORY CARE Respiratory Rate 18 07/01/2024 1:13 PM ATTENDING AMBULATORY CARE Oxygen Saturation 95% 08/01/2024 1:11 PM ATTENDING AMBULATORY CARE with O2 Inhaled Oxygen Concentration - - Weight 95.4 kg (210 lb 6.4 oz) 08/01/2024 1:11 P M ATTENDING AMBULATORY CARE Height 160 cm (5' 3 ) 08/01/2024 1:11 PM ATTENDING AMBULATORY CARE Body Mass Index 37.27 08/01/2024 1:11 PM ATTENDING AMBULATORY CARE Plan of Treatment Not on file Insurance [facility] [employer] CHOICE PPO [facility] [employer] [facility] PPO [facility] Care Teams Fixture Designer Relationship Specialty Start Date End Date Ilsa Garrett MD [address] [place] [address] PCP - General Critical Care Med 05/16/24 Macy Cassidy MD [facility] [address] [address] Consulting Physician Interventional Cardiology 07/01/24
--- OUTSIDE RECORDS SUMMARY | 2024-12-25 11:19 | XMS_ITS | Clinical Summary ---
Author Organization [facility] [address] Address [address] [place] [address] Care Team Providers Care Lime Boiler Name Role Phone Ilsa Garrett MD Primary Care Provider [phone] Macy Cassidy MD Unavailable [phone] Allergies No known active allergies Medications albuterol [...] Diagnosed Date Coronary artery disease invo lving [place] coronary artery of [place] heart without angina pectoris 08/01/2024 Chronic heart [...] 07/17/2017 Assessment & Plan (07/17/2017 5:47 PM OVERHAULER): Sleep study showed moderate ROQUE. Morbid obesity with BMI of 40.0-44.9, adult 11/2016 Pulmonary HTN 07/17/2017 Assessment & Plan (07/17/2017 5:48 PM OVERHAULER): Echo showed pulmonary hypertension with RV enlargement and hypokinesis, RVSP of 70 mmHg. Probably from sleep apnea, with perhaps some contribution of COPD and chronic diastolic dysfunction/diastolic CHF Essential hypertension 05/11/2017 Assessment & Plan (07/17/2017 5:47 PM OVERHAULER): Hypertension is treated and at goal. Persistent atrial fibrillation 05/11/2017 Assessment & Plan (07/17/2017 5:47 PM OVERHAULER): Recently found to have AFib with a [...] 01/12/2022 Assessment & Plan (07/17/2017 5:48 PM OVERHAULER): Does have rales in the lower lobes on exam today, improved but do not resolve with coughing. Wonder she does have some underlying diastolic heart failure? Diastolic dysfunction without heart failure 05/11/2017 01/12/2022 Immunizations Immunization Administration Dates Next Due Influenza, Quad, Adjuvantated, Intramuscular Influenza, Trivalent, High D ose, Split, Preservative Free, Intramuscular 07/08/2019 Influenza, Unspecified 05/28/2017 Pneumococcal Conjugate, Unspecified 05/28/2016 ZOSTER LIVE 05/28/2016 Surgical History Surgery Date Site/Laterality Comments TOTAL SHOULDER REPLACEMENT Right CATARACT EXTRACTION, BILATERAL LYMPH NODE BIOPSY COLONOSCOPY CATARACT EXTRACTION JOINT REPLACEMENT Medical History Medical History Date Comments Hypertension Thyroid disease Lymphoma (HCC) A-fib (HCC) Anxiety Arthritis Cataract Depression Sleep apnea Kidney stone Family History Medical History Relation Name Comments Heart attack Brother Little bro Early Father Isra Obesity Maternal Grandmother Grandma Hypertension Mother Mom Liver cancer Mother Mom Obesity Mother Mom Cancer Mother's Sister Auntie Obesity Mother's Sister Auntie Relation Name Status Comments Brother Little bro Alive Father Isra Maternal Grandmother Grandma Mother Mom (Age 83) 82 when di agnosed Mother's Sister Auntie Social History Tobacco Use Types Packs/Day Years Used Date Smoking Tobacco: Never Smokeless Tobacco: Never Alcohol Use Standard Drinks/Week Comments No 0 (1 standard drink = 0.6 oz pur e alcohol) Comments Unknown Sex and Gender Information Value Date Recorded Sex Assigned at Not on file Legal Sex Female 12:44 PM OVERHAULER Gender Identity Female 03/31/2021 2:26 PM CDT Sexual Orientation Straight 03/31/2021 2: 26 PM CDT Obstetrics History Last Filed Vital Signs Vital Sign Reading Time Taken Comments Blood Pressure 132/68 08/01/2024 1:11 PM OVERHAULER Pulse 61 08/01/2024 1:11 PM OVERHAULER Temperature 36.5 C (97.7 F) 07/01/2024 1:13 PM OVERHAULER Respiratory Rate 18 07/01/2024 1:13 PM OVERHAULER Oxygen Saturation 95% 08/01/2024 1:11 PM OVERHAULER with O2 Inhaled Oxygen Concentration - - Weight 95.4 kg (210 lb 6.4 oz) 08/01/2024 1:11 P M OVERHAULER Height 160 cm (5' 3 ) 08/01/2024 1:11 PM OVERHAULER Body Mass Index 37.27 08/01/2024 1:11 PM OVERHAULER Plan of Treatment Health Maintenance Due Date Last Done Comments Depression Screening 1944 Fall Risk Assessment 1944 Osteoporosis Screening-Bone Density Scan 1944 DTaP/Tdap/Td Vaccine (1 - Tdap) 1955 Hepatitis B Screening 1962 Well Visit 65+ 2009 Pneumococcal vaccine 65+ (2 of 2 - PPSV23) 07/23/2016 05/28/2016 Zoster Vaccine (1 of 2) 07/23/2016 05/28/2016 Covid-19 Vaccine (3 - Pfizer risk series) 12/01/2020 11/03/2020, 10/13/2020 Influenza Vaccine (Season Ended) 2025 05/31/2020, 07/08/2019, 05/28/2017 Insurance [facility] ADVANTAGE CHOICE PPO [facility] ADVANTAGE CHOICE PPO [facility] Care Teams Lime Boiler Relationship Specialty Start Date End Date Ilsa Garrett MD [address] [place], [place] [id number] PCP - General Critical Care Med 05/16/24 Macy Cassidy MD [address] [facility] [address], [place] [address] Consulting Physician Interventional Cardiology 07/01/24
--- OUTSIDE RECORDS SUMMARY | 2024-12-25 11:19 | XMS_ITS | Clinical Summary ---
Author Organization [facility] Address [facility] [place] [address] Care Team Providers Care Epoxy Coatings Installer Name Role Phone Unavailable Primary Care Provider Unavailabl e Social History Tobacco Use Types Packs/Day Years Used Date Smoking Tobacco: Never Assessed Comments Unknown Sex and Gender Information Value Date Recorded Sex Assigned at Not on file Legal Sex Female 8:12 PM CDT Gender Identity Not on file Sexual Orientation Not on file Plan of Treatment Health Maintenance Due Date Last Done Comments DTaP, Tdap and Td Vaccines ( 1 - Tdap) 1963 Pneumococcal Vaccine: 50+ Ye ars (1 of 1 - PCV) 1994 Zoster Vaccines (1 of 2) 1994 Dexa Scan (General) 2009 RSV Immunization or 60+ Years (1 - 1-dose 75+ series) 2019 COVID-19 Vaccine (2023-2 5 season) 2024 Meningococcal B Vaccine Aged Out No l onger eligible based on patient's age to complete this topic Meningococcal Vaccine Aged Out No sotero daniel eligible based on patient's age to complete this topic RSV Immunizations Under 20 Months Aged Out No longer eligible based on patient's age to complete this topic
== END 2024-12-25 10:56 | disposition home or self-care (01) ==
PROVIDERS: PCP Nurse Practitioner Family; Visit Provider Nurse Practitioner Family
DX: R10.11 Right upper quadrant pain (principal)
CPT/HCPCS: 76705

== ENCOUNTER 2025-01-10 06:56 | Outpatient (CLI) | payer OTHER, SELFPAY ==
--- NOTE | ~2025-01-10 | CT_ITS ---
CT of the Abdomen and Pelvis: Indication: Abdominal pain Technique: 2.5 mm axial scans were obtained through the abdomen and pelvis following intravenous adm inistration of 100 cc of Omnipaque 350. Dose reduction technique was used on this scan by utilizing a utomated exposure control and iterative reconstruction technique. The dose-length product (DLP) was 1 370.23 mGy-cm. COMPARISON: 12/22/2022 Findings: Scans through the lung bases demonstrates stable 7 mm left basilar pulmonary nodule. Nodular contour of liver is compatible cirrhotic change. No focal hepatic mass or biliary dilatation evident. The spleen, pancreas, gallbladder, adrenals and left kidney are within normal limits. 4 mm n onobstructing right renal stone present. There are atherosclerotic calcifications of the aorta. No l ymphadenopathy. No bowel obstruction or bowel wall thickening. There is no evidence to suggest acute appendicitis. Images through the pelvis were performed. Possible urinary bladder wall thickening. No pelvic mass. N o ascites. There are bilateral L5 pars interarticularis defects, with 11 mm anterolisthesis of L5 ove r S1. There is moderate to advanced degenerative spondylosis throughout the spine. Impression: Possible cystitis. Correlate with urinalysis. Cirrhotic morphology of the liver. 4 mm nonobstructing right renal stone. Stable 7 mm left basilar pulmonary nodule. Reviewed, dictated and finalized at [facility]. Impression: Possible cystitis. Correlate with urinalysis. Cirrhotic morphology of the liver. 4 mm nonobstructing right renal stone. Stable 7 mm left basilar pulmonary nodule.
--- OUTSIDE RECORDS SUMMARY | 2025-01-10 06:59 | XMS_ITS | Clinical Summary ---
Author Organization [facility] [address] Address [address] [place] [address] Care Team Providers Care Inventory Specialist Name Role Phone Ilsa Garrett MD Primary Care Provider [phone] Macy Cassidy MD Unavailable [phone] Agustina Steward MD Unavailable [phone] Allergies No known active allergies Medications albuterol [...] tablet in the afternoon 90 tablet 2 1 Active raloxifene (EVISTA) 60 mg tablet 3 Active cyclobenzaprine (FLEXERIL) 5 mg tablet TAKE 1 TABLET BY MOUTH THREE TIMES A DAY NEEDED FOR MUSCLE SPASM 4 Active atorvastatin (LIPITOR) 40 mg tablet TAKE 1 TABLET BY MOUTH EVERY DAY 90 tablet 2 4 Active aspirin 81 mg enteric coated tablet Take 1 tablet (81 mg total) by mouth daily Active apixaban (Eliquis) 5 mg tablet TAKE 1 TABLET BY MOUTH TWICE A DAY 180 tablet 2 5 Active metoprolol tartrate (LOPRESSOR) 25 mg immediate release tabletIndications :Persistent atrial fibrillation (HCC),Bradycardia TAKE 1 TABLET BY MOUTH TWICE A DAY 180 tablet 1 5 Active Active Problems Problem Noted Date Diagnosed Date Coronary artery disease invo [place]ving [place] coronary artery of [place] heart without angina pectoris 08/01/2024 Chronic heart failure with preserved ejection fr action 08/01/2024 Platelets decreased 03/27/2024 Anemia, unspecified 07/31/2023 Lethargy 07/31/2023 JACKSON (dyspnea on exertion) 01/29/2023 Preoperative cardiovascular examination 01/30/20 Hypercholesterolemia 09/16/2020 Abnormal stress test 01/27/2020 Other emphysema 06/21/2018 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 Morbid obesity with BMI of 40.0-44.9, adult 11/2016 Pulmonary HTN 07/17/2017 Assessment & Plan (07/17/2017 5:48 PM ESCALATOR CONSTRUCTOR): Echo showed pulmonary hypertension with RV enlargement and hypokinesis, RVSP of 70 mmHg. Probably from sleep apnea, with perhaps some contribution of COPD and chronic diastolic dysfunction/diastolic CHF Essential hypertension 05/11/2017 Assessment & Plan (07/17/2017 5:47 PM ESCALATOR CONSTRUCTOR): Hypertension is treated and at goal. Persistent atrial fibrillation 05/11/2017 Assessment & Plan (07/17/2017 5:47 PM ESCALATOR CONSTRUCTOR): Recently found to have AFib with a [...] 01/12/2022 Assessment & Plan (07/17/2017 5:48 PM ESCALATOR CONSTRUCTOR): Does have rales in the lower lobes [...] History Relation Name Comments Heart attack Brother Divine avila Early Father Isra Obesity Maternal Grandmother Grandma [...] on file Legal Sex Female 12:44 PM ESCALATOR CONSTRUCTOR Gender Identity Female 03/31/2021 2:26 PM CDT Sexual Orientation Straight 03/31/2021 2: 26 PM CDT Obstetrics History Last Filed Vital Signs Vital Sign Reading Time Taken Comments Blood Pressure 132/68 08/01/2024 1:11 PM ESCALATOR CONSTRUCTOR Pulse 61 08/01/2024 1:11 PM ESCALATOR CONSTRUCTOR Temperature 36.5 C (97.7 F) 07/01/2024 1:13 PM ESCALATOR CONSTRUCTOR Respiratory Rate 18 07/01/2024 1:13 PM ESCALATOR CONSTRUCTOR Oxygen Saturation 95% 08/01/2024 1:11 PM ESCALATOR CONSTRUCTOR with O2 Inhaled Oxygen Concentration - - Weight 95.4 kg (210 lb 6.4 oz) 08/01/2024 1:11 P M ESCALATOR CONSTRUCTOR Height 160 cm (5' 3) 08/01/2024 1:11 PM ESCALATOR CONSTRUCTOR Body Mass Index 37.27 08/01/2024 1:11 PM ESCALATOR CONSTRUCTOR Plan of Treatment Health Maintenance Due Date [...] (Season Ended) 2025 05/31/2020, 07/08/2019, 05/28/2017 Insurance [facility]VANT[facility] CHOICE PPO [facility] ADVANT[facility] CHOICE PPO [facility] Care Teams Inventory Specialist Relationship Specialty Start Date End Date Ilsa Garrett MD [address] [place] [address] PCP - General Critical Care Med 05/16/24 Macy Cassidy MD [facility] [address], [place] [id number] Consulting Physician Interventional Cardiology 07/01/24 Agustina Steward MD [address] [place] [address] Medical Oncologist/Telephone Answerer Hematology 12/27/24
--- OUTSIDE RECORDS SUMMARY | 2025-01-10 06:59 | XMS_ITS | Referral Summary ---
Author Organization [facility] [address] Address [address] [place] [address] Care Team Providers Care Dimmer Board Operator Name Role Phone Ilsa Garrett MD Primary Care Provider [phone] Macy Cassidy MD Unavailable Agustina Steward MD Unavailable Allergies No known active allergies Medications albuterol [...] Diagnosed Date Coronary artery disease invo lving [place] coronary artery of [place] heart without angina pectoris 08/01/2024 Chronic heart [...] 07/17/2017 Assessment & Plan (07/17/2017 5:47 PM WORLD GEOGRAPHY TEACHER): Sleep study showed moderate ROQUE. Morbid obesity with BMI of 40.0-44.9, adult 11/2016 Pulmonary HTN 07/17/2017 Assessment & Plan (07/17/2017 5:48 PM WORLD GEOGRAPHY TEACHER): Echo showed pulmonary hypertension with RV enlargement and hypokinesis, RVSP of 70 mmHg. Probably from sleep apnea, with perhaps some contribution of COPD and chronic diastolic dysfunction/diastolic CHF Essential hypertension 05/11/2017 Assessment & Plan (07/17/2017 5:47 PM WORLD GEOGRAPHY TEACHER): Hypertension is treated and at goal. Persistent atrial fibrillation 05/11/2017 Assessment & Plan (07/17/2017 5:47 PM WORLD GEOGRAPHY TEACHER): Recently found to have AFib with a [...] 01/12/2022 Assessment & Plan (07/17/2017 5:48 PM WORLD GEOGRAPHY TEACHER): Does have rales in the lower lobes [...] on file Legal Sex Female 12:44 PM WORLD GEOGRAPHY TEACHER Gender Identity Female 03/31/2021 2:26 PM CDT Sexual Orientation Straight 03/31/2021 2: 26 PM CDT Last Filed Vital Signs Vital Sign Reading Time Taken Comments Blood Pressure 132/68 08/01/2024 1:11 PM WORLD GEOGRAPHY TEACHER Pulse 61 08/01/2024 1:11 PM WORLD GEOGRAPHY TEACHER Temperature 36.5 C (97.7 F) 07/01/2024 1:13 PM WORLD GEOGRAPHY TEACHER Respiratory Rate 18 07/01/2024 1:13 PM WORLD GEOGRAPHY TEACHER Oxygen Saturation 95% 08/01/2024 1:11 PM WORLD GEOGRAPHY TEACHER with O2 Inhaled Oxygen Concentration - - Weight 95.4 kg (210 lb 6.4 oz) 08/01/2024 1:11 P M WORLD GEOGRAPHY TEACHER Height 160 cm (5' 3) 08/01/2024 1:11 PM WORLD GEOGRAPHY TEACHER Body Mass Index 37.27 08/01/2024 1:11 PM WORLD GEOGRAPHY TEACHER Plan of Treatment Not on file Insurance [facility] ADVANTAGE CHOICE PPO [facility] ADV[facility] CHOICE PPO [facility] Member Subscriber Plan / Payer (Ef fective 2016-Present) Name:Rhoda Newton Relation to Subscriber:Self Name:Rhoda Newton Payer ID:[id number] (NAIC) Type:MEDICARE RISK OTHER Address: [address] [place] [id number] Care Teams Dimmer Board Operator Relationship Specialty Start Date End Date Ilsa Garrett MD [address] [facility] [address] [place] [address] PCP - General Critical Care Med 05/16/24 Macy Cassidy MD [facility] [address] [address] Consulting Physician Interventional Cardiology 07/01/24 Agustina Steward MD [address] [place] [address] Medical Oncologist/Gastroenterology Technician Hematology 12/27/24
== END 2025-01-10 06:57 | disposition home or self-care (01) ==
PROVIDERS: PCP Nurse Practitioner Family; Visit Provider Nurse Practitioner Family
DX: N20.0 Calculus of kidney (principal); R91.1 Solitary pulmonary nodule; K74.60 Unspecified cirrhosis of liver
CPT/HCPCS: 74177; Q9967